=== PATIENT | male | born 1975 | race Caucasian/White ===

== ENCOUNTER 2021-03-22 20:55 | Inpatient (IN) | payer MEDICAID, SELFPAY ==
[2021-03-22 20:57] VITALS: BP 180/113; PULSE 118; RESP 22; TEMP 38.4; O2SAT 94; BMI 27.4
--- NOTE | 2021-03-22 21:11 | CTR_ITS ---
PROCEDURE INFORMATION: Exam: CT Head Without Contrast Exam date and time: 03/22/2021 9:11 PM Age: 45 years old Clinical indication: Altered mental status/memory loss; Additional info: AMS TECHNIQUE: Imaging protocol: Computed tomography of the head without contrast. Radiation optimization: All CT scans at this facility use at least one of these dose optimization techniques: automated exposure control; mA and/or kV adjustment per patient size (includes targeted exams where dose is matched to clinical indication); or iterative reconstruction. COMPARISON: No relevant prior studies available. RADIATION DOSE METRICS: Total DLP (mGy-cm): 698.67 FINDINGS: Brain: There is cortical hypodensity with loss of abdi-white differentiation involving the right frontal operculum extending into the insular cortex worrisome for subacute cortical infarct. There is some focal hypodensity in the right posterior frontal white matter which appears also to be involving the mid body of the corpus callosum consistent with chronic lacunar infarct. There is also encephalomalacia involving the inferior left cerebellar hemisphere most likely chronic cerebellar infarct. There is no intracranial mass or hemorrhage. Cerebral ventricles: Ventricles are within normal limits of size. Paranasal sinuses: Visualized sinuses are unremarkable. No fluid levels. Mastoid air cells: Visualized mastoid air cells are well aerated. Bones/joints: Unremarkable. No acute fracture. Soft tissues: Unremarkable. CT/CT head wo con* [id number] IMPRESSION: 1. Findings worrisome for subacute infarction involving the right frontal and temporal region. 2. 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
--- NOTE | 2021-03-22 21:11 | XRR_ITS ---
PROCEDURE INFORMATION: Exam: XR Chest Exam date and time: 03/22/2021 9:11 PM Age: 45 years old Clinical indication: Fever and other: Weakness; Additional info: AMS, fever TECHNIQUE: Imaging protocol: XR of the chest. Views: 1 view. COMPARISON: No relevant prior studies available. FINDINGS: Lungs: Visualized portions of the lungs are clear. Pleural spaces: Unremarkable. No pleural effusion. No pneumothorax. Heart/Mediastinum: Heart is upper limits normal in size. Vasculature: There are mild atherosclerotic changes in the aortic arch. Bones/joints: Unremarkable. XR/XR chest 1V portable [id number] IMPRESSION: No acute infiltrate. Radiation Dose CTDIVOL = (mGy): DLP = (mGy-cm)
--- NOTE | 2021-03-22 21:18 | ED_ITS ---
Documented by User: GISELLE Martinez 03/23/21 00:46 HPI - Altered Mental Status General: Chief Complaint: Altered Mental Status Stated Complaint: AMS Time Seen by Provider: 03/22/21 21:11 History of Present Illness: HPI narrative: 45-year-old male patient brought in by EMS today for concerns of confusion and altered mental status. Patient states he does not feel good this morning and had chills throughout the day. Patient denies any significant pain or discomfort. Patient does report an occasional cough for the past couple days. Patient looks mildly unwell but not toxic. Skin is warm and dry. Patient is sleeping through interview. Patient does awake to questions but does not relate his history well. Patient denies taking any acetaminophen or ibuprofen for pain or fever. Review of Systems General: Reports: 10 or more systems reviewed and unremarkable except in HPI and below Const: Reports: fever(s), chills and malaise [facility] ED PFSH: Medical History Diabetes mellitus, type II History of stroke with residual deficit (~2019) Treated at [facility] in [facility] per family, residual left sided weakness Hyperlipidemia Hypertension Surgical History (Updated 03/22/21 @ 23:44 by Khadijah Betts MD) History of placement of ear tubes childhood Family History (Updated 03/22/21 @ 23:45 by Khadijah Betts MD) Mother Cancer colon cancer Other Diabetes Hyperlipidemia Hypertension Stroke Social History (Updated 03/22/21 @ 23:46 by Khadijah Betts MD) Smoking and tobacco status: current every day smoker cigarettes Packs smoked per day: 2 Alcohol intake: never Substance/Drug Use: never Household members: other Details: lives with sister and brother in law Current occupational status: unemployed Physical Exam Const: COMMON NORMALS: no acute distress and patient oriented x3 GENERAL APPEARANCE: cooperative HENMT: COMMON NORMALS: normocephalic and Normal external nose present HEAD & SCALP: normal to inspection and normocephalic NOSE: Normal external nose present MOUTH: Normal oral and palatal mucosa present Eye: GENERAL EYE: appearance normal, both eyes and all related structures Neck/C-Spine: COMMON NORMALS: full ROM Lymph: LYMPHATIC: no lymphadenopathy noted Chest: COMMONS NORMALS: normal inspection of the chest Resp: COMMON NORMALS: normal respiratory effort EFFORT & INSPECTION: Yes able to speak in complete sentences Cardio: COMMON NORMALS: regular rate and regular rhythm RATE: regular rate RHYTHM: regular rhythm GI: COMMON NORMALS: Soft to palpation and non-tender PALPATION: Yes Soft to palpation : COMMON NORMALS: Yes no CVA tenderness BLADDER/KIDNEY EXAM: Yes no CVA tenderness Back/Pelvis: COMMON NORMALS: no CVA tenderness and thoracic and lumbar spine normal to inspection Extremity: COMMON NORMALS: normal to inspection Neuro: COMMON NORMALS: patient oriented x3 and moves all extremities Psych: COMMON NORMALS: mental status grossly normal and cooperative Skin: COMMON NORMALS: no rashes or lesions noted GENERAL SKIN EXAM: no rashes or lesions noted Course ED course: 2144, patient sisters are at bedside. Patient has a history of diabetes. Patient has not been taking his medications routinely due to not having a local physician. Patient does have a history of a CVA. Sisters reports he has been ill for the last 2 days. 230, Dr. Marion did a cerebral spinal fluid tap and placed a femoral central line into the left groin. Consultations: Consultation #1: Discussed patient with Dr. Marion who recommended I talk with Dr. De La Rosa regarding abnormal CT scan. She recommended that we go ahead and do a cerebral spinal fluid tap due to patient's fever, she recommended no treatment for the abnormalities noted for the chronic infarct or the subacute infarct noted on CT scan. She stated that those will need to be followed later in clinic or per hospitalist. Time: 22:45 Consultation #2: Consulted with Dr. Betts for admission to hospital. Time: 00:18 Vital Signs: Vital signs: Vital Signs Temperature 101.2 F H 03/22/21 20:57 Pulse Rate 147 H 03/23/21 00:15 Respiratory Rate 14 03/23/21 00:15 Blood Pressure 174/124 03/23/21 00:15 Pulse Oximetry 96 03/23/21 00:15 MDM - Altered Mental Status MDM Narrative: Medical decision making narrative: 45-year-old male patient was brought in by EMS [facility] for complaints of altered mental status. Patient was found in the floor in the bathroom at home by family. He was confused. Family reported that patient has a history of CVA and diabetes. Patient's baseline is usually he is able to get up get around and able to converse normally. Patient has had type 2 diabetes but has not been taking medications for the last 3 months. On exam patient responds to questions. Patient has no unequal weakness no facial drooping. Abdomen soft nontender. Lungs were clear to auscultation. Skin is warm and dry. Patient has a increased pulse rate in the 120s, respirations are in the 20s, and patient has a temperature of 101. Differential diagnosis includes DKA, stroke syndrome, sepsis. Laboratory values noted a blood glucose of 430s, white blood cell count was 13,000, hemoglobin was 19, sodium was 135, potassium was 4.2. Lactic was 2.4. Acetaminophen salicylate drug screen were negative. Alcohol was less than 10. Patient was positive for ketones. ABG noted a pH of 7.39, CO2 was 29.3, PO2 was 76.2 with a bicarb of 17.6. Patient will need admission for correction of blood glucose and ketones and acidosis. Patient also need further evaluation for fever. CT noted a old infarct of the brain but also a subacute finding in the right frontal lobe. Chest x-ray was normal. We consulted Dr. De La Rsoa, neurologist, she recommended spinal tap for cerebrospinal fluid for infectious origin, also recommended follow-up regarding the abnormal CT findings at later date. Dr. Marion was integral in the care of this patient. He recommended discussion with Dr. Betts for admission to ICU. I reviewed patient with Dr. Boucher who agreed to admission for DKA, probable stroke, altered mental status, and fever. Lab Data: Labs: Lab Results 03/22/21 03/22/21 03/22/21 21:00 21:00 21:00 WBC 13.0 10^3/uL H 10 ^3/uL (4.0-10.0) RBC 6.62 10^6/uL H 10 ^6/uL (4.1-5.3) Hgb 19.3 g/dL H g/dL (11.7-16.6) Hct 58.4 % H % (42.0-52.0) MCV 88.2 fl fl (80-94) MCH 29.2 pg pg (28.0-34.0) MCHC 33.0 g/dL g/dL (30.0-36.0) RDW 12.8 % % (12.1-15.1) Plt Count 238 10^3/cmm 10^3 /cmm (130-400) MPV 12.3 fL H fL (7.4-10.4) Neut % (Auto) 92.0 % % Lymph % (Auto) 5.0 % % [place] % (Auto) 1.9 % % Eos % (Auto) 0.1 % % Baso % (Auto) 0.4 % % Neut # (Auto) 11.94 10^3/uL H 1 0^3/uL (1.8-7.7) Lymph # (Auto) 0.7 10^3/uL L 10^ 3/uL (0.8-4.8) [place] # (Auto) 0.3 10^3/uL 10^3/ uL (0.2-0.9) Eos # (Auto) 0.0 10^3/uL 10^3/ uL (0.0-0.8) Baso # (Auto) 0.1 10^3/uL 10^3/ uL (0.0-0.1) Nucleated RBC % (a uto) 0 % % Nucleated RBCs # 0.0 /100WBC /100W BC Specimen Type Sample Site ABG pH ABG pCO2 ABG pO2 ABG HCO3 ABG Base Excess Jamal Test Hematocrit O2 Delivery Device O2 Liters/Min Missile Control Pilot ID Sodium 135 mmol/L L mmol /L (136-145) Potassium 4.2 mmol/L mmol/L (3.5-5.1) Chloride 95 mmol/L L mmol/ L (98-107) Carbon Dioxide 17 mmol/L L mmol/ L (22-29) Anion Gap 27.2 H (5-19) BUN 8 mg/dL mg/dL (6-20) Creatinine 0.6 mg/dL L mg/dL (0.7-1.2) GFR Calculation 144.4 mL/min H mL /min (90-130) Glucose 431 mg/dL H mg/dL (65-115) POC Glucose Calculated Osmolal ity 297 mOsm/kg H mOs m/kg (285-295) Lactic Acid 2.4 mmol/L H mmol /L (0.5-2.2) Calcium 9.5 mg/dL mg/dL (8.5-10.5) Total Bilirubin 0.6 mg/dL mg/dL (0.15-1.2) AST 15 U/L U/L (0-40) ALT 25 U/L U/L (0-41) Alkaline Phosphata se 137 IU/L H IU/L (40-130) Troponin T Gen 5 n g/L C-Reactive Protein 11.0 mg/L H mg/L (0.0-4.9) Total Protein 6.8 g/dL g/dL (6.6-8.7) Albumin 4.2 g/dL g/dL (3.5-5.2) Globulin 2.6 g/dL g/dL (1.3-4.6) Urine Color Urine Appearance Urine pH Ur Specific Gravit y Urine Protein Urine Glucose (UA) Urine Ketones Urine Blood Urine Nitrate Urine Bilirubin Urine Urobilinogen Ur Leukocyte Neris ase Urine RBC Urine WBC Ur Squamous Epith Cells Amorphous Sediment Urine Bacteria Fine Granular Cast s Salicylates Urine Opiates Scre en Acetaminophen Ur Barbiturates Sc reen Ur Phencyclidine S crn Ur Amphetamines Sc reen U Benzodiazepines Scrn Urine Cocaine Scre en U Marijuana (THC) Screen Ethyl Alcohol < 10 mg/dL mg/dL (0-10) Serum Ketones Influenza Type A A g Influenza Type B A g SARS-CoV-2 Ag (Rap id) 03/22/21 03/22/21 03/22/21 21:00 21:00 21:00 WBC RBC Hgb Hct MCV MCH MCHC RDW Plt Count MPV Neut % (Auto) Lymph % (Auto) [place] % (Auto) Eos % (Auto) Baso % (Auto) Neut # (Auto) Lymph # (Auto) [place] # (Auto) Eos # (Auto) Baso # (Auto) Nucleated RBC % (a uto) Nucleated RBCs # Specimen Type Sample Site ABG pH ABG pCO2 ABG pO2 ABG HCO3 ABG Base Excess Jamal Test Hematocrit O2 Delivery Device O2 Liters/Min Missile Control Pilot ID Sodium Potassium Chloride Carbon Dioxide Anion Gap BUN Creatinine GFR Calculation Glucose POC Glucose Calculated Osmolal ity Lactic Acid Calcium Total Bilirubin AST ALT Alkaline Phosphata se Troponin T Gen 5 n g/L 17 ng/L H ng/L (0-15) C-Reactive Protein Total Protein Albumin Globulin Urine Color Urine Appearance Urine pH Ur Specific Gravit y Urine Protein Urine Glucose (UA) Urine Ketones Urine Blood Urine Nitrate Urine Bilirubin Urine Urobilinogen Ur Leukocyte Neris ase Urine RBC Urine WBC Ur Squamous Epith Cells Amorphous Sediment Urine Bacteria Fine Granular Cast s Salicylates < 0.3 mg/dL L mg/ dL (3-10) Urine Opiates Scre en Acetaminophen < 5.0 ug/mL L ug/ mL (10-30) Ur Barbiturates Sc reen Ur Phencyclidine S crn Ur Amphetamines Sc reen U Benzodiazepines Scrn Urine Cocaine Scre en U Marijuana (THC) Screen Ethyl Alcohol Serum Ketones Positive H (Negative) Influenza Type A A g Influenza Type B A g SARS-CoV-2 Ag (Rap id) 03/22/21 03/22/21 03/22/21 21:50 21:50 21:57 WBC RBC Hgb Hct MCV MCH MCHC RDW Plt Count MPV Neut % (Auto) Lymph % (Auto) [place] % (Auto) Eos % (Auto) Baso % (Auto) Neut # (Auto) Lymph # (Auto) [place] # (Auto) Eos # (Auto) Baso # (Auto) Nucleated RBC % (a uto) Nucleated RBCs # Specimen Type Sample Site ABG pH ABG pCO2 ABG pO2 ABG HCO3 ABG Base Excess Jamal Test Hematocrit O2 Delivery Device O2 Liters/Min Missile Control Pilot ID Sodium Potassium Chloride Carbon Dioxide Anion Gap BUN Creatinine GFR Calculation Glucose POC Glucose Calculated Osmolal ity Lactic Acid Calcium Total Bilirubin AST ALT Alkaline Phosphata se Troponin T Gen 5 n g/L C-Reactive Protein Total Protein Albumin Globulin Urine Color Yellow (Yellow) Urine Appearance Clear (CLEAR) Urine pH 5 (5-7) Ur Specific Gravit y 1.020 (1.005-1.030) Urine Protein 3+ H (Negative) Urine Glucose (UA) 4+ H (Normal) Urine Ketones 3+ H (Negative) Urine Blood 2+ H (Negative) Urine Nitrate Negative (Negative) Urine Bilirubin Neg (Negative) Urine Urobilinogen Norm mg/dL mg/dL (Negative) Ur Leukocyte Neris ase Negative (Negative) Urine RBC Rare /hpf /hpf (0-2) Urine WBC Rare /hpf /hpf (0-5) Ur Squamous Epith Cells None /hpf /hpf (0-5) Amorphous Sediment Not Reportable Urine Bacteria None /hpf /hpf (NONE) Fine Granular Cast s 0-4 /lpf H /lpf Salicylates Urine Opiates Scre en Negative ng/mL ng /mL (Negative) Acetaminophen Ur Barbiturates Sc reen Negative ng/mL ng /mL (Negative) Ur Phencyclidine S crn Negative ng/mL ng /mL (Negative) Ur Amphetamines Sc reen Negative ng/mL ng /mL (Negative) U Benzodiazepines Scrn Negative ng/mL ng /mL (Negative) Urine Cocaine Scre en Negative ng/mL ng /mL (Negative) U Marijuana (THC) Screen Negative ng/mL ng /mL (Negative) Ethyl Alcohol Serum Ketones Influenza Type A A g Influenza Type B A g SARS-CoV-2 Ag (Rap id) Negative (Negative) 03/22/21 03/22/21 03/23/21 21:57 22:25 00:17 WBC RBC Hgb Hct MCV MCH MCHC RDW Plt Count MPV Neut % (Auto) Lymph % (Auto) [place] % (Auto) Eos % (Auto) Baso % (Auto) Neut # (Auto) Lymph # (Auto) [place] # (Auto) Eos # (Auto) Baso # (Auto) Nucleated RBC % (a uto) Nucleated RBCs # Specimen Type Arterial Sample Site Brachial, right ABG pH 7.39 (7.35-7.45) ABG pCO2 29.3 mmHg L mmHg (35-45) ABG pO2 76.2 mmHg L mmHg (80.0-100.0) ABG HCO3 17.6 mmol/L L mmo l/L (22-26) ABG Base Excess -5.6 mmol/L L mmo l/L (-2.0-2.0) Jamal Test N/a Hematocrit 58.7 % H % (42-52) O2 Delivery Device Nc O2 Liters/Min 2.0 % % Missile Control Pilot ID Harkr Sodium Potassium Chloride Carbon Dioxide Anion Gap BUN Creatinine GFR Calculation Glucose POC Glucose 421 mg/dL H mg/dL (70-110) Calculated Osmolal ity Lactic Acid Calcium Total Bilirubin AST ALT Alkaline Phosphata se Troponin T Gen 5 n g/L C-Reactive Protein Total Protein Albumin Globulin Urine Color Urine Appearance Urine pH Ur Specific Gravit y Urine Protein Urine Glucose (UA) Urine Ketones Urine Blood Urine Nitrate Urine Bilirubin Urine Urobilinogen Ur Leukocyte Neris ase Urine RBC Urine WBC Ur Squamous Epith Cells Amorphous Sediment Urine Bacteria Fine Granular Cast s Salicylates Urine Opiates Scre en Acetaminophen Ur Barbiturates Sc reen Ur Phencyclidine S crn Ur Amphetamines Sc reen U Benzodiazepines Scrn Urine Cocaine Scre en U Marijuana (THC) Screen Ethyl Alcohol Serum Ketones Influenza Type A A g Negative (Negative) Influenza Type B A g Negative (Negative) SARS-CoV-2 Ag (Rap id) EKG Data^: EKG 1: Attestation: I personally reviewed and interpreted this EKG as follows: (2200, EKG shows a sinus tachycardia with a regular rate and now had 119 bpm, no ST elevation no ectopy noted.) Discharge Plan Discharge Patient Disposition: Admitted As Inpatient Clinical Impression: Altered mental status, DKA (diabetic ketoacidosis), Fever, Cerebral vascular accident Condition: Stable Coding Level of Care Code ED Biological Scientist for Chg Fwd Exam Comprehensive Documented by User: Akin Marion MD 03/22/21 23:50 HPI - Altered Mental Status General: Chief Complaint: Altered Mental Status Stated Complaint: AMS Time Seen by Provider: 03/22/21 21:11 [facility] ED PFSH: Medical History Diabetes mellitus, type II History of stroke with residual deficit (~2018) Treated at [facility] in [facility] per family, residual left sided weakness Hyperlipidemia Hypertension Surgical History (Updated 03/22/21 @ 23:44 by Khadijah Betts MD) History of placement of ear tubes childhood Family History (Updated 03/22/21 @ 23:45 by Khadijah Betts MD) Mother Cancer colon cancer Other Diabetes Hyperlipidemia Hypertension Stroke Social History (Updated 03/22/21 @ 23:46 by Khadijah Betts MD) Smoking and tobacco status: current every day smoker cigarettes Packs smoked per day: 2 Alcohol intake: never Substance/Drug Use: never Household members: other Details: lives with sister and brother in law Current occupational status: unemployed Procedures Central Line Placement Left Femoral: Time Out Performed: Yes Patient Placed on Monitor/Pulse Ox: Yes Prep: mask, gown and gloves Central Line Prep: Povidone-Iodine 1% and Chlorhexidine scrub Local Anesthetic: lidocaine 1% Amount of anesthesia used (mL): 4 Ultrasound Used for Placement: Yes Central Line Lumen Inserted: triple Post Procedure: sutured in place, good blood return, all ports aspirated, flushed, capped and sterile dressing applied Post Procedure X-Ray: tip of catheter in good position Patient Tolerated Procedure: well and no complications Complications: none Lumbar Puncture Time Out Performed: Yes Patient Position: right lateral decubitus Skin Prep: Povidone-Iodine 1% Local Anesthetic: lidocaine 1% Amount of anesthesia used (mL): 5 Spinal Needle Gauge: 22G Interspace Used: L4-L5 Fluid Initially Obtained: clear Complications: none Additional Comments: 3 attempts and were able to obtain LP sample Course Vital Signs: Vital signs: Vital Signs Temperature 101.2 F H 03/22/21 20:57 Pulse Rate 147 H 03/23/21 00:15 Respiratory Rate 14 03/23/21 00:15 Blood Pressure 174/124 03/23/21 00:15 Pulse Oximetry 96 03/23/21 00:15 MDM - Altered Mental Status Lab Data: Labs: Lab Results 03/22/21 03/22/21 03/22/21 21:00 21:00 21:00 WBC 13.0 10^3/uL H 10 ^3/uL (4.0-10.0) RBC 6.62 10^6/uL H 10 ^6/uL (4.1-5.3) Hgb 19.3 g/dL H g/dL (11.7-16.6) Hct 58.4 % H % (42.0-52.0) MCV 88.2 fl fl (80-94) MCH 29.2 pg pg (28.0-34.0) MCHC 33.0 g/dL g/dL (30.0-36.0) RDW 12.8 % % (12.1-15.1) Plt Count 238 10^3/cmm 10^3 /cmm (130-400) MPV 12.3 fL H fL (7.4-10.4) Neut % (Auto) 92.0 % % Lymph % (Auto) 5.0 % % [place] % (Auto) 1.9 % % Eos % (Auto) 0.1 % % Baso % (Auto) 0.4 % % Neut # (Auto) 11.94 10^3/uL H 1 0^3/uL (1.8-7.7) Lymph # (Auto) 0.7 10^3/uL L 10^ 3/uL (0.8-4.8) [place] # (Auto) 0.3 10^3/uL 10^3/ uL (0.2-0.9) Eos # (Auto) 0.0 10^3/uL 10^3/ uL (0.0-0.8) Baso # (Auto) 0.1 10^3/uL 10^3/ uL (0.0-0.1) Nucleated RBC % (a uto) 0 % % Nucleated RBCs # 0.0 /100WBC /100W BC Specimen Type Sample Site ABG pH ABG pCO2 ABG pO2 ABG HCO3 ABG Base Excess Jamal Test Hematocrit O2 Delivery Device O2 Liters/Min Missile Control Pilot ID Sodium 135 mmol/L L mmol /L (136-145) Potassium 4.2 mmol/L mmol/L (3.5-5.1) Chloride 95 mmol/L L mmol/ L (98-107) Carbon Dioxide 17 mmol/L L mmol/ L (22-29) Anion Gap 27.2 H (5-19) BUN 8 mg/dL mg/dL (6-20) Creatinine 0.6 mg/dL L mg/dL (0.7-1.2) GFR Calculation 144.4 mL/min H mL /min (90-130) Glucose 431 mg/dL H mg/dL (65-115) POC Glucose Calculated Osmolal ity 297 mOsm/kg H mOs m/kg (285-295) Lactic Acid 2.4 mmol/L H mmol /L (0.5-2.2) Calcium 9.5 mg/dL mg/dL (8.5-10.5) Total Bilirubin 0.6 mg/dL mg/dL (0.15-1.2) AST 15 U/L U/L (0-40) ALT 25 U/L U/L (0-41) Alkaline Phosphata se 137 IU/L H IU/L (40-130) Troponin T Gen 5 n g/L C-Reactive Protein 11.0 mg/L H mg/L (0.0-4.9) Total Protein 6.8 g/dL g/dL (6.6-8.7) Albumin 4.2 g/dL g/dL (3.5-5.2) Globulin 2.6 g/dL g/dL (1.3-4.6) Urine Color Urine Appearance Urine pH Ur Specific Gravit y Urine Protein Urine Glucose (UA) Urine Ketones Urine Blood Urine Nitrate Urine Bilirubin Urine Urobilinogen Ur Leukocyte Neris ase Urine RBC Urine WBC Ur Squamous Epith Cells Amorphous Sediment Urine Bacteria Fine Granular Cast s Salicylates Urine Opiates Scre en Acetaminophen Ur Barbiturates Sc reen Ur Phencyclidine S crn Ur Amphetamines Sc reen U Benzodiazepines Scrn Urine Cocaine Scre en U Marijuana (THC) Screen Ethyl Alcohol < 10 mg/dL mg/dL (0-10) Serum Ketones Influenza Type A A g Influenza Type B A g SARS-CoV-2 Ag (Rap id) 03/22/21 03/22/21 03/22/21 21:00 21:00 21:00 WBC RBC Hgb Hct MCV MCH MCHC RDW Plt Count MPV Neut % (Auto) Lymph % (Auto) [place] % (Auto) Eos % (Auto) Baso % (Auto) Neut # (Auto) Lymph # (Auto) [place] # (Auto) Eos # (Auto) Baso # (Auto) Nucleated RBC % (a uto) Nucleated RBCs # Specimen Type Sample Site ABG pH ABG pCO2 ABG pO2 ABG HCO3 ABG Base Excess Jamal Test Hematocrit O2 Delivery Device O2 Liters/Min Missile Control Pilot ID Sodium Potassium Chloride Carbon Dioxide Anion Gap BUN Creatinine GFR Calculation Glucose POC Glucose Calculated Osmolal ity Lactic Acid Calcium Total Bilirubin AST ALT Alkaline Phosphata se Troponin T Gen 5 n g/L 17 ng/L H ng/L (0-15) C-Reactive Protein Total Protein Albumin Globulin Urine Color Urine Appearance Urine pH Ur Specific Gravit y Urine Protein Urine Glucose (UA) Urine Ketones Urine Blood Urine Nitrate Urine Bilirubin Urine Urobilinogen Ur Leukocyte Neris ase Urine RBC Urine WBC Ur Squamous Epith Cells Amorphous Sediment Urine Bacteria Fine Granular Cast s Salicylates < 0.3 mg/dL L mg/ dL (3-10) Urine Opiates Scre en Acetaminophen < 5.0 ug/mL L ug/ mL (10-30) Ur Barbiturates Sc reen Ur Phencyclidine S crn Ur Amphetamines Sc reen U Benzodiazepines Scrn Urine Cocaine Scre en U Marijuana (THC) Screen Ethyl Alcohol Serum Ketones Positive H (Negative) Influenza Type A A g Influenza Type B A g SARS-CoV-2 Ag (Rap id) 03/22/21 03/22/21 03/22/21 21:50 21:50 21:57 WBC RBC Hgb Hct MCV MCH MCHC RDW Plt Count MPV Neut % (Auto) Lymph % (Auto) [place] % (Auto) Eos % (Auto) Baso % (Auto) Neut # (Auto) Lymph # (Auto) [place] # (Auto) Eos # (Auto) Baso # (Auto) Nucleated RBC % (a uto) Nucleated RBCs # Specimen Type Sample Site ABG pH ABG pCO2 ABG pO2 ABG HCO3 ABG Base Excess Jamal Test Hematocrit O2 Delivery Device O2 Liters/Min Missile Control Pilot ID Sodium Potassium Chloride Carbon Dioxide Anion Gap BUN Creatinine GFR Calculation Glucose POC Glucose Calculated Osmolal ity Lactic Acid Calcium Total Bilirubin AST ALT Alkaline Phosphata se Troponin T Gen 5 n g/L C-Reactive Protein Total Protein Albumin Globulin Urine Color Yellow (Yellow) Urine Appearance Clear (CLEAR) Urine pH 5 (5-7) Ur Specific Gravit y 1.020 (1.005-1.030) Urine Protein 3+ H (Negative) Urine Glucose (UA) 4+ H (Normal) Urine Ketones 3+ H (Negative) Urine Blood 2+ H (Negative) Urine Nitrate Negative (Negative) Urine Bilirubin Neg (Negative) Urine Urobilinogen Norm mg/dL mg/dL (Negative) Ur Leukocyte Neris ase Negative (Negative) Urine RBC Rare /hpf /hpf (0-2) Urine WBC Rare /hpf /hpf (0-5) Ur Squamous Epith Cells None /hpf /hpf (0-5) Amorphous Sediment Not Reportable Urine Bacteria None /hpf /hpf (NONE) Fine Granular Cast s 0-4 /lpf H /lpf Salicylates Urine Opiates Scre en Negative ng/mL ng /mL (Negative) Acetaminophen Ur Barbiturates Sc reen Negative ng/mL ng /mL (Negative) Ur Phencyclidine S crn Negative ng/mL ng /mL (Negative) Ur Amphetamines Sc reen Negative ng/mL ng /mL (Negative) U Benzodiazepines Scrn Negative ng/mL ng /mL (Negative) Urine Cocaine Scre en Negative ng/mL ng /mL (Negative) U Marijuana (THC) Screen Negative ng/mL ng /mL (Negative) Ethyl Alcohol Serum Ketones Influenza Type A A g Influenza Type B A g SARS-CoV-2 Ag (Rap id) Negative (Negative) 03/22/21 03/22/21 03/23/21 21:57 22:25 00:17 WBC RBC Hgb Hct MCV MCH MCHC RDW Plt Count MPV Neut % (Auto) Lymph % (Auto) [place] % (Auto) Eos % (Auto) Baso % (Auto) Neut # (Auto) Lymph # (Auto) [place] # (Auto) Eos # (Auto) Baso # (Auto) Nucleated RBC % (a uto) Nucleated RBCs # Specimen Type Arterial Sample Site Brachial, right ABG pH 7.39 (7.35-7.45) ABG pCO2 29.3 mmHg L mmHg (35-45) ABG pO2 76.2 mmHg L mmHg (80.0-100.0) ABG HCO3 17.6 mmol/L L mmo l/L (22-26) ABG Base Excess -5.6 mmol/L L mmo l/L (-2.0-2.0) Jamal Test N/a Hematocrit 58.7 % H % (42-52) O2 Delivery Device Nc O2 Liters/Min 2.0 % % Missile Control Pilot ID Harkr Sodium Potassium Chloride Carbon Dioxide Anion Gap BUN Creatinine GFR Calculation Glucose POC Glucose 421 mg/dL H mg/dL (70-110) Calculated Osmolal ity Lactic Acid Calcium Total Bilirubin AST ALT Alkaline Phosphata se Troponin T Gen 5 n g/L C-Reactive Protein Total Protein Albumin Globulin Urine Color Urine Appearance Urine pH Ur Specific Gravit y Urine Protein Urine Glucose (UA) Urine Ketones Urine Blood Urine Nitrate Urine Bilirubin Urine Urobilinogen Ur Leukocyte Neris ase Urine RBC Urine WBC Ur Squamous Epith Cells Amorphous Sediment Urine Bacteria Fine Granular Cast s Salicylates Urine Opiates Scre en Acetaminophen Ur Barbiturates Sc reen Ur Phencyclidine S crn Ur Amphetamines Sc reen U Benzodiazepines Scrn Urine Cocaine Scre en U Marijuana (THC) Screen Ethyl Alcohol Serum Ketones Influenza Type A A g Negative (Negative) Influenza Type B A g Negative (Negative) SARS-CoV-2 Ag (Rap id) Critical Care Time Critical Care Time: Critical Care Time: Yes Total Critical Care Time: 45 Attestation: Given the high probability of imminent or life threatening deterioration of the patient?s condition without intervention, the patient was immediately assessed by myself and the nurse, and cardiac monitoring initiated. The patient was also placed on oxygen and continuous pulse oximetry initiated. During the course of the patient?s stay, I spent a considerable amount of time at the bedside performing serial re-evaluations of the patient?s hemodynamic and clinical status because of the recognized potential threat to life or limb in this condition. Clinical management of this patient involved high complexity decision making to assess, manipulate, and support vital organ system failure. I then had a chance to review all of the available laboratory and radiographic studies obtained today, and I also reviewed old records available to me at the time. Sequential vital signs were obtained. Critical care time noted below was time spent engaged in work directly related to the individual patient?s care, not including time performing procedures; however it does include time spent at the immediate bedside or elsewhere on the floor or unit. TOTAL CRITICAL CARE TIME ELAPSED: 45 minutes. BODY SYSTEM AT HIGHEST RISK: Neurological and Hematological Discharge Plan Discharge Patient Disposition: Admitted As Inpatient Clinical Impression: Altered mental status, DKA (diabetic ketoacidosis), Fever, Cerebral vascular accident Condition: Stable Coding Level of Care Code ED Biological Scientist for Olga Fwandie Exam Comprehensive
--- NOTE | 2021-03-22 21:25 | ECG_ITS ---
[facility] Test Date: 2021-03-22 Pat Name: Dimitrios Guerrero Department: Room: Gender: Male [employer]: : 1975 Requested By: Hernesto Catherine Order Number: [id number] Jia MD: Demetrius Durán M.D. Measurements Intervals [place] Rate: 119 P: 66 OR: 176 QRS: 97 QRSD: 110 T: 54 QT: 327 QTc: 461 Interpretive Statements SINUS TACHYCARDIA BORDERLINE RIGHT AXIS DEVIATION [QRS AXIS > 90] SEPTAL MYOCARDIAL INFARCTION , OF INDETERMINATE AGE [40+ ms Q WAVE IN V1/V2] No previous ECG available for comparison Electronically Signed On 03-23-2021 1:25:51 CDT by Demetrius Durán M.D. [id number]
[2021-03-22 21:42] LABS: Basophils # 0.1 10^3/uL (0.0-0.1); Basophils % 0.4 %; Eosinophils % 0.1 %; Hematocrit 58.4 % (42.0-52.0); Hemoglobin 19.3 g/dL (11.7-16.6); Lymphocytes # 0.7 10^3/uL (0.8-4.8); Mean Corpuscular Hemoglobin 29.2 pg (28.0-34.0); Mean Corpuscular Volume 88.2 fl (80-94); Mean Platelet Volume 12.3 fL (7.4-10.4); Monocytes # 0.3 10^3/uL (0.2-0.9); Monocytes % 1.9 %; Neutrophils # 11.94 10^3/uL (1.8-7.7); Nucleated Red Blood Cells % 0 %; Platelet Count 238 10^3/cmm (130-400); Red Blood Count 6.62 10^6/uL (4.1-5.3); Red Cell Distribution Width 12.8 % (12.1-15.1)
[2021-03-22 21:56] LABS: Lactic Sepsis W/Reflex 2.4 mmol/L (0.5-2.2); Troponin T (5th) Once 17 ng/L (0-15)
[2021-03-22 21:57] LABS: Alanine Aminotransferase 25 U/L (0-41); Albumin Level 4.2 g/dL (3.5-5.2); Alkaline Phosphatase 137 IU/L (40-130); Aspartate Amino Transferase 15 U/L (0-40); Blood Urea Nitrogen 8 mg/dL (6-20); Calcium 9.5 mg/dL (8.5-10.5); Carbon Dioxide 17 mmol/L (22-29); Chloride 95 mmol/L (98-107); Globulin 2.6 g/dL (1.3-4.6); Glomerular Filtration Rate 144.4 mL/min (90-130); Glucose 431 mg/dL (65-115); Osmolality Calculated 297 mOsm/kg (285-295); Sodium 135 mmol/L (136-145); Total Bilirubin 0.6 mg/dL (0.15-1.2); Total Protein 6.8 g/dL (6.6-8.7)
[2021-03-22] MEDS: sodium chloride 0.9% 1,000 ML 999 ML IV (21:58)
[2021-03-22] MEDS: acetaminophen 500 mg Tablet 1000 MG PO (21:58)
[2021-03-22 21:59] LABS: Alcohol Level < 10 mg/dL (0-10); Anion Gap 27.2 (5-19); Potassium 4.2 mmol/L (3.5-5.1)
[2021-03-22 22:10] LABS: Ketone (Acetest) Serum Positive (Negative)
[2021-03-22 22:12] VITALS: BP 191/113; PULSE 121; RESP 28; O2SAT 94
[2021-03-22 22:17] LABS: Amphetamines Screen Urine Negative (Negative); Barbiturates Screen Urine Negative (Negative); Benzodiazepines Screen Urine Negative (Negative); Blood Urine 2+ (Negative); Cocaine Screen Urine Negative (Negative); Glucose Urine UA 4+ (Normal); Ketones Urine 3+ (Negative); Opiate Screen Urine Negative (Negative); PCP Screen Urine Negative (Negative); Protein Urine 3+ (Negative); THC Screen Urine Negative (Negative); Urine Appearance Clear (CLEAR); Urine Color Yellow (Yellow); pH Urine 5 (5-7)
[2021-03-22 22:18] LABS: Add Urine Microscopic? YES; Bilirubin Urine Neg (Negative); Leukocyte Esterase Urine Negative (Negative); Nitrate Urine Negative (Negative); RBC Urine RARE /hpf (0-2); Urobilinogen Urine Norm (Negative)
[2021-03-22 22:19] LABS: Fine Granular Casts Urine 0-4 /lpf; WBC Urine RARE /hpf (0-5)
[2021-03-22 22:30] VITALS: BP 181/109; PULSE 120; RESP 25; O2SAT 95
[2021-03-22] MEDS: insulin regular-human 100 units/1 mL 10 UNIT IVP (22:34)
[2021-03-22 22:36] LABS: ABG PCO2 29.3 mmHg (35-45); ABG PH Result 7.39 (7.35-7.45); Arterial Blood Gas Hematocrit 58.7 % (42-52); Base Excess ABG -5.6 mmol/L (-2.0-2.0); Blood Gas Operator Identificat HARKR; Blood Gas Sample Site Brachial, right; Blood Gas Sample Type Arterial; HCO3 ABG 17.6 mmol/L (22-26); Oxygen Device NC; PO2 ABG 76.2 mmHg (80.0-100.0)
[2021-03-22 22:45] LABS: Influenza A by IFA Negative (Negative); Influenza B by IFA Negative (Negative); SARS Covid-2 Antigen Negative (Negative)
--- NOTE | 2021-03-22 23:21 | P.HP_ITS ---
Providers/Chief Complaint Admitting Physician: Khadijah Betts MD Primary Care Provider: None Chief Complaint: AMS History of Present Illness Dimitrios Guerrero is a 45 year old male Who presented to the emergency room with chief complaint of change in mental status. Family indicates that he has been his usual self until today. He had gotten up to go to the bathroom. Prior to this he was talking and had no specific complaints. He had been in the bathroom for quite some time and then his [id number] heard a thump . They went to the bathroom and found him on the floor. He was not completely unresponsive but was not as communicative as he had been. He had a red spot on his left side but otherwise they did not see any evidence of trauma including no evidence of head injury. No loss of bowel or bladder function identified. They were unable to get him up off the floor and called EMS. On specific questioning, his sister with whom he lives reports that yesterday he complained of his good leg not working and some difficulty walking because of this. He has a history of a prior stroke approximately 2 years ago associated with residual left-sided weakness. He was treated at either [facility] in [facility] for the stroke. He has a known history of diabetes, hypertension and high cholesterol but does not have any insurance and has not been on any medications due to inability to afford them. Hesitation to the emergency room, patient's bl ood pressure was 180/113, temperature was 101.2, pulse was 118 and respiratory rate in the low 20s. Family does not report any known fever at home, upper respiratory symptoms cough, nausea, vomiting, diarrhea, urinary symptoms, open sores or other acute issues within the past 24 to 48 hours. None of them are sick. He has not had Covid and did not receive the Covid vaccination. Work-up in the emergency room revealed evidence of hyperglycemia with anion gap and serum ketosis consistent with DKA. Also noted were changes on CT of the head without contrast worrisome for subacute cortical infarction in the right frontal operculum extending to the insular cortex. Chronic left cerebellar infarctions also identified. There was no mass or hemorrhage nor ventricular enlargement. White count 13,000. Lumbar puncture was performed in the emergency room. Blood cultures were collected. He has received vancomycin, Rocephin and acyclovir. Urinalysis was negative. Central venous line was placed for care. He is being admitted to the ICU. According to ER staff, patient was conversive when he arrived. Currently will open eyes and lift his head to stimulation but not engaging. Review of Systems General: Reports: ROS unobtainable due to medical condition and ROS unobtainable due to mental status Medications/Allergies Home Medications Medication Instructions Recorded Confirmed Last Taken Type No Known Home Medications 03/22/21 03/22/21 Unknown History Allergies Allergy/AdvReac Type Severity Reaction Status Date / Time No Known Allergies Allergy Verified 03/22/21 20:57 PFSH Acute PFSH: Medical History Diabetes mellitus, type II History of stroke with residual deficit (~2018) Treated at [facility] per family, residual left sided weakness Hyperlipidemia Hypertension Surgical History (Updated 03/22/21 @ 23:44 by Khadijah Betts MD) History of placement of ear tubes childhood Family History (Updated 03/22/21 @ 23:45 by Khadijah Betts MD) Mother Cancer colon cancer Other Diabetes Hyperlipidemia Hypertension Stroke Social History (Updated 03/22/21 @ 23:46 by Khadijah Betts MD) Smoking and tobacco status: current every day smoker cigarettes Packs smoked per day: 2 Alcohol intake: never Substance/Drug Use: never Household members: other Details: lives with sister and brother in law Current occupational status: unemployed Vitals/I&O/Wt Last Vital Signs Temp 101.2 F H 03/22/21 20:57 Pulse 120 H 03/22/21 22:30 Resp 25 H 03/22/21 22:30 BP 181/109 03/22/21 22:30 Pulse Ox 95 03/22/21 22:30 Weight last 48 hrs Weight 74.843 kg Physical Exam Narrative: EXAM NARRATIVE: Constitutional: Acutely ill-appearing HEENT: Pupils are equally reactive and same size bilaterally, nystagmus is noted, nasopharynx with dried mucus, oropharynx with very dry mucous membranes Neck: Supple Respiratory: Shallow respirations, tachypneic, no wheezes or rails, no rhonchi, abdominal breathing, no supraclavicular intercostal retractions, is mouth breathing Cardiovascular: Tachycardic, regular, no notable murmurs Abdomen: Soft, nontender, nondistended, positive but decreased bowel sounds : Normal external genitalia, Bang catheter is in place, central line in place in the left groin with some periplacement hematoma noted though no external bleeding. During my evaluation, dressing was removed and gauze that was sutured in place was removed. This necessitated resuturing. Sterile gloves were utilized. Area was cleaned with chlorhexidine. New suture was placed. Sterile dressing was placed. Extremities: No pitting edema, no significant warmth, erythema or effusion noted at elbows, wrists, knees, ankles Skin: Dry, some minor bruising at sites of blood draws/line placements, scattered minor sores on distal extremities, no rashes or petechiae Neuro: Not fully cooperative with examination. Restless. Has flapping movements of his right hand at times. Left toe is downgoing, right toe is upgoing. Strength may be slightly decreased in the right lower extremity compared to the left lower extremity although difficult to fully ascertain as he does not follow commands. He does withdraw all extremities during attempts at manipulation/examination. Generalized myoclonic-like movements elicitable with ankle jerks bilaterally. Muscle mass appears equal bilaterally, face appears grossly symmetric, extraocular movements are grossly intact, positive gag. Psych: Not currently responsive Data : 03/22/21 21:00 03/22/21 21:00 Micro: Microbiology 03/22/21 22:00 Blood Culture - Preliminary Blood SPECIMEN COLLECTED 03/22/21 21:00 Blood Culture - Preliminary Blood SPECIMEN COLLECTED A&P Assessment and plan (1) Encephalopathy acute: Multifactorial from probable acute/subacute stroke, possibility of syncope or seizure, diabetic ketoacidosis, potential viral or bacterial infection. Exacerbated by medications administered to allow appropriate evaluation in the ER. In addition to alteration in mental status, he has fever, mild leukocytosis, hypertension and what family describes as sudden change this evening around 7:30 PM. This was preceded by complaint of increased difficulty walking yesterday involving his good leg . My impression clinically this point in time is that he has had a recurrent stroke within the past 24 to 48 hours that probably put him into DKA on top of chronically uncontrolled blood sugars. He is a known smoker and has hypertension and hyperlipidemia which also have not been treated. History of noncompliance related to financial difficulty affording medical care and medications, lack of insurance. While acute infection is certainly within the differential, the fever and white blood count could be reactive related to stroke. He has had appropriate blood cultures, lumbar puncture with multiple studies sent, urinalysis and chest x-ray. He has a mildly elevated lactic acid level and elevation in CRP. Clinical significance of these findings not currently clear. Metabolic and vascular abnormalities could also account for these changes. Does not currently appear to be septic though it is certainly something to watch out for Status: Acute (2) Cerebral vascular accident: With sudden onset of clinical change this evening combined with report from yesterday difficulty walking, along with abnormalities identified on CT imaging primary my differential is an acute stroke. Area of involvement however in the frontal temporal region do have to keep in mind herpetic or other viral process. Status: Acute (3) DKA (diabetic ketoacidosis): In a patient with a history of untreated diabetes, presumptively type II, no clear history of DKA previously Has associated significant dehydration, anion gap metabolic acidosis, hyperglycemia, serum ketosis Status: Acute Qualifiers: Diabetes mellitus type: type 2 Diabetes mellitus complication detail: without coma Qualified Code(s): E11.10 - Type 2 diabetes mellitus with ketoaci dosis without coma (4) Hypertension: Chronically, has been untreated due to financial difficulty affording medications and medical care, currently permissive in the setting of potential stroke Status: Chronic (5) Hyperlipidemia: Not on chronic treatment secondary to financial difficulty affording medications and medical care Status: Chronic (6) Nicotine dependence: 2 pack-a-day smoker Status: Chronic (7) Does not have health insurance: And financially has been unable to afford medical care and/or medications Status: Chronic Additional A&P Information Inpatient admission ICU level care DKA management with insulin, IV fluids, serial laboratory studies and electrolyte replacement as indicated Will need outpatient diabetes management initiated at discharge Serial cardiac enzymes Serial neuro exams Carotid ultrasound and echocardiogram CTA of the head neck Aspirin and statin are ordered Will need antiplatelet and statin ordered at discharge Check INR, hemoglobin A1c, lipid panel Permissive hypertension presently Anticipate need to initiate antihypertensives upon discharge PT, OT and speech evaluations Follow-up pending blood cultures Follow-up pending CSF studies ordered from the emergency room CSF gram stain/cell count CSF culture HSV CSH CSF Cryptococcal antigen [place] Encephalitis Virus IFA CSF VDRL CSF West Nile Follow up bacterial and viral antigens Will presently continue acyclovir, vancomycin and Rocephin initiated in the emergency room until we get a bit more information Repeat lactic acid Covid PCR has been ordered, rapid antigen was negative Isolation until can confirm Covid negative Follow-up pending thyroid studies ordered in the emergency room Lovenox for DVT prophylaxis PPI for GI prophylaxis Bang catheter for close monitoring of urine output Central venous line management for optimal care with comorbid acute issues Case management consultation to assist with arranging outpatient follow-up preferably in [place] or [facility] Disposition plans will depend on clinical course but hopefully he can safely return home Discussed with patient's sisters current findings, concerns and plans including 1) evaluation and medical management for possible stroke, that with symptoms onset described more than 24 hours ago would not be within the window for clot Buster medications, 2) treatment and monitoring for diabetic ketoacidosis, 3) empiric coverage and evaluation for possibility of infectious causes, 4) need to arrange for primary care provider and medication management for chronic medical issues going forward, 5) [place] Medicaid expansion and [facility] affiliated [address] medication plan options to help him be able to be compliant with medications. All were given an opportunity to ask questions which were answered. Patient sister Ludy is primary contact at [phone] CODE STATUS was discussed with both of patient sisters. Given his chronic comorbid conditions were he to have acute cardiac arrest or need for intubation they indicate he would not want to be intubated or resuscitated. Allow natural orders have been placed. They ask that we would treat him aggressively otherwise and I assured them we would. Attestations Medical Necessity Statement*: Anticipated stay greater than two midnights in gentleman with multiple acute medical issues as described, at high risk of rapid clinical decline up to and including without appropriate intervention. Plans are as indicated. Coding Level of Care Code Acute Commercial Management Accountant for Chg Fwd Diagnoses Encephalopathy acute G93.40 Cerebral vascular accident I63.9 DKA (diabetic ketoacidosis) E11.10 Diabetes mellitus type: type 2 Diabetes mellitus complication detail: without coma Hypertension I10 Hyperlipidemia E78.5 Nicotine dependence F17.200 Does not have health insurance Z59.89
[2021-03-22 23:25] LABS: Reflex Lactate Order REFLEX LACTIC ORDERD
[2021-03-22] MEDS: cefTRIAXone 2,000 MG in sodium chloride 0.9% (plus) 50 ML 100 MG IV (23:45)
[2021-03-22 23:50] LABS: Acetaminophen < 5.0 ug/mL (10-30); Salicylate < 0.3 mg/dL (3-10)
[2021-03-23] VITALS (48 sets, daily range): BP systolic 104–250; BP diastolic 77–205; PULSE 75–148; RESP 14–35; TEMP 36.7–38.9; O2SAT 79–98
[2021-03-23 00:23] LABS: Glucose Point of Care 421 mg/dL (70-110)
[2021-03-23] MEDS: acyclovir 1,000 MG in sodium chloride 0.9% (100 ml) 100 ML 120 MG IV (00:40)
[2021-03-23] MEDS: vancomycin 1,500 MG/300 ML PIGGYBACK 200 MG IV (00:51)
[2021-03-23] MEDS: cefTRIAXone 1,000 MG in sodium chloride 0.9% (plus) 50 ML 100 MG IV (00:51)
[2021-03-23 01:00] LABS: Blood Urea Nitrogen 9 mg/dL (6-20); Calcium 9.2 mg/dL (8.5-10.5); Carbon Dioxide 16 mmol/L (22-29); Chloride 101 mmol/L (98-107); Free T4 Free Thyroxine 1.42 ng/dL (0.82-1.77); Glomerular Filtration Rate 144.4 mL/min (90-130); Glucose 383 mg/dL (65-115); Magnesium 1.6 mg/dL (1.7-2.3); Osmolality Calculated 302 mOsm/kg (285-295); Phosphorus 2.3 mg/dL (2.5-4.5); Sodium 139 mmol/L (136-145); Thyroid Stimulating Hormone 0.33 uIU/mL (0.27-4.20)
[2021-03-23 01:02] LABS: INR 0.99 (0.8-1.2)
[2021-03-23 01:04] LABS: Partial Thromboplastin Time 23.9 SECONDS (23.9-36.7)
[2021-03-23 01:05] LABS: Appearance CSF CLEAR (CLEAR); Color CSF COLORLESS (COLORLESS)
[2021-03-23 01:06] LABS: Anion Gap 25.5 (5-19); Lactic Acid level (Lactate) 4.1 mmol/L (0.5-2.2); Potassium 3.5 mmol/L (3.5-5.1)
[2021-03-23 01:18] LABS: Red Blood Cell CSF 0 10^3/uL (0-0); White Blood Cell CSF 3 /uL (0-5)
[2021-03-23 01:21] LABS: CSF Mononuclear # 0.003 10^3/uL (50-90); Mononuclear WBC CSF % 100 % (50-90); Polynuclear WBC CSF % 0 % (0-10)
[2021-03-23 01:32] LABS: CSF Specific Gravity 1.005
[2021-03-23] MEDS: sodium chloride 0.9% 1,000 ML 999 ML IV ×2 (01:43→03:02)
[2021-03-23 01:55] LABS: ABG PCO2 24.1 mmHg (35-45); ABG PH Result 7.34 (7.35-7.45); Arterial Blood Gas Hematocrit 53.1 % (42-52); Base Excess ABG -10.6 mmol/L (-2.0-2.0); Blood Gas Operator Identificat HARKR; Blood Gas Sample Site Brachial, left; Blood Gas Sample Type Arterial; Carboxyhemoglobin 2.1 %THgb (0.4-20.1); HCO3 ABG 12.9 mmol/L (22-26); HGB O2 Sat 92.1 % (95-100); Methemoglobin 0.5 % (0.4-1.5); Oxygen Device ROOM AIR; PO2 ABG 66.6 mmHg (80.0-100.0); Total Hemoglobin 17.3 g/dL (14-18)
[2021-03-23 02:07] LABS: Glucose Point of Care 471 mg/dL (70-110)
[2021-03-23 02:23] LABS: Lactate (Lactic Acid level) 2.2 mmol/L (0.5-2.2)
[2021-03-23 02:34] LABS: Glucose Point of Care 463 mg/dL (70-110)
[2021-03-23 02:59] LABS: Troponin 5 2HR Delta 3.4 ABS# (0-10)
--- NOTE | 2021-03-23 03:03 | PC.PHAR ---
Vancomycin is dosed at 1500mg IVPB every 12 hours to produce a predicted trough level of 10.68 (population based pharmacokinetic analysis). A trough level has been ordered from the lab to be obtained before the fourth dose to confirm and adjust if needed.
[2021-03-23 03:20] LABS: Glucose Point of Care 380 mg/dL (70-110)
[2021-03-23] MEDS: enoxaparin 40 mg/0.4 mL Syringe SUBCUT (03:28)
[2021-03-23 03:44] LABS: Glucose Point of Care 340 mg/dL (70-110)
[2021-03-23] MEDS: morphine 4 mg/mL SDV 1 mL IVP ×2 (03:46→10:05)
[2021-03-23] MEDS: magnesium sulfate premix 2 GM/50 ML PIGGYBACK IV (03:47)
[2021-03-23] MEDS: sodium chloride 0.9% 1,000 ML 150 ML IV ×2 (04:16→13:24)
[2021-03-23 04:33] LABS: Glucose Point of Care 270 mg/dL (70-110)
[2021-03-23 05:40] LABS: Glucose Point of Care 159 mg/dL (70-110)
--- NOTE | 2021-03-23 05:53 | ECG_ITS ---
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 Measurements Intervals [place] Rate: 126 P: 53 AK: 170 QRS: 49 QRSD: 115 T: 52 QT: 386 QTc: 561 Interpretive Statements SINUS TACHYCARDIA WITH OCCASIONAL VENTRICULAR PREMATURE COMPLEXES MODERATE INTRAVENTRICULAR CONDUCTION DELAY [110+ ms QRS DURATION] NONSPECIFIC T-WAVE ABNORMALITY ABNORMAL RHYTHM ECG Compared to ECG 03/22/2021 21:51:10 Ventricular premature complex(es) now present Intraventricular conduction delay now present T-wave abnormality now present Myocardial infarct finding no longer present Electronically Signed On 03-23-2021 23:58:35 CDT by Demetrius Durán M.D. [id number]
[2021-03-23] MEDS: dextrose 5%-ns + KCl 20 20 MEQ/1,000 ML BAG 100 MEQ IV (06:10)
--- NOTE | 2021-03-23 06:18 | NUR.SHIFT ---
Patient arrived on insulin gtt, titrated per protocol. Patient not answering questions appropriately or following commands. Patient arrived to unit tachycardic, labored kussaul breathing; breathing is not non labored, within normal limits. Fluids changed per MD order. Patient continues to pull on lines, remains in restraints. Patient educated on restraints, lines, and medications.
[2021-03-23 06:23] LABS: Basophils % 0.2 %; Hematocrit 49.1 % (42.0-52.0); Hemoglobin 16.3 g/dL (11.7-16.6); Lymphocytes # 1.5 10^3/uL (0.8-4.8); Lymphocytes % 6.8 %; Mean Corpuscular HGB Conc 33.2 g/dL (30.0-36.0); Mean Corpuscular Hemoglobin 29.3 pg (28.0-34.0); Mean Corpuscular Volume 88.2 fl (80-94); Monocytes # 1.3 10^3/uL (0.2-0.9); Monocytes % 6.1 %; Neutrophils # 18.52 10^3/uL (1.8-7.7); Neutrophils % 86.3 %; Nucleated Red Blood Cells % 0 %; Platelet Count 229 10^3/cmm (130-400); Red Blood Count 5.57 10^6/uL (4.1-5.3); Red Cell Distribution Width 13.1 % (12.1-15.1); White Blood Count 21.5 10^3/uL (4.0-10.0)
[2021-03-23 06:36] LABS: Glucose Point of Care 90 mg/dL (70-110)
[2021-03-23 06:57] LABS: Anion Gap 16.2 (5-19); Blood Urea Nitrogen 8 mg/dL (6-20); Carbon Dioxide 18 mmol/L (22-29); Chloride 113 mmol/L (98-107); Glomerular Filtration Rate 178.2 mL/min (90-130); Glucose 85 mg/dL (65-115); Magnesium 1.9 mg/dL (1.7-2.3); Osmolality Calculated 296 mOsm/kg (285-295); Phosphorus 2.3 mg/dL (2.5-4.5); Potassium 3.2 mmol/L (3.5-5.1); Sodium 144 mmol/L (136-145)
[2021-03-23 06:58] LABS: Lactate (Lactic Acid level) 1.6 mmol/L (0.5-2.2)
[2021-03-23 06:59] LABS: Creatinine Clr Calc Pharmacy 172.6628
[2021-03-23] MEDS: insulin regular-human 250 UNIT in sodium chloride 0.9% 250 ML IV (07:02)
--- NOTE | 2021-03-23 07:03 | PC.NURSE ---
Unable to scan insulin IV from ER, see titrations on IV insulin flow sheet.
[2021-03-23 07:08] LABS: Troponin 5 6HR 35.97 ng/L (0-15)
[2021-03-23 07:21] LABS: Troponin 5 6HR Delta 18.97 ng/L (0-12)
[2021-03-23 07:34] LABS: Chol HDL Ratio 7.36 mg/dL (1.0-5.00); Cholesterol 184 mg/dL (0-200); HDL Cholesterol 25 mg/dL (60-100); LDL Cholesterol Calculated 114 mg/dL (50-129); LDL HDL Ratio 4.56 RATIO (0.00-3.22); Triglycerides 223 mg/dL (0-150)
[2021-03-23] MEDS: acyclovir 1,000 MG in sodium chloride 0.9% (100 ml) 100 ML 100 MG IV ×2 (08:59→19:35)
[2021-03-23] MEDS: pantoprazole 40 mg SDV IVP (08:59)
[2021-03-23 09:21] LABS: Estmated Average Glucose 418; Hemoglobin A1C 16.2 % (4.0-6.0)
--- NOTE | 2021-03-23 09:31 | PC.OT ---
OT EVALUATION ATTEMPTED. HOLD PER NURSING, NOT ALERT AND ORIENTED OR RESPONDING AT THIS TIME.
--- NOTE | 2021-03-23 09:53 | P.PN_ITS ---
Subjective Subjective: Interval history: Patient was seen and examined this morning, continues to be agitated, and thrashing in bed, continues to be confused. He is also spiking temperature. Continues to be tachycardic , tachypneic , hypertensive, anion gap is closed. His other vitals and labs have been reviewed. Medications: Reviewed: Yes Vitals/I&O/Wt Last Vital Signs Temp 99.2 F 03/23/21 08:00 Pulse 109 H 03/23/21 08:00 Resp 22 H 03/23/21 08:00 BP 166/91 03/23/21 08:00 Pulse Ox 93 03/23/21 08:00 03/22/21 03/23/21 03/23/21 22:59 06:59 14:59 Intake Total 3962.5 / 3962.5 0 / 0 Output Total 500 / 500 Balance 3462.5 / 3462.5 0 / 0 Weight last 48 hrs Weight 80.286 kg Weight 74.843 kg Physical Exam Narrative: EXAM NARRATIVE: Agitated, currently AO x0 HENMT: COMMON NORMALS: normocephalic and atraumatic HEAD & SCALP: normocephalic and atraumatic Resp: OTHER: Tachypneic and bilateral wheezing present Cardio: COMMON NORMALS: regular rhythm, S1 normal heart sound present, S2 normal heart sound present, No gallops present (Cardio), No murmurs present (Cardio), No rub (Cardio) and Peripheral pulses 2+ throughout RATE: tachycardic RHYTHM: regular rhythm HEART SOUNDS: S1 normal heart sound present and S2 normal heart sound present PERIPHERAL PULSES: Peripheral pulses 2+ throughout GI: COMMON NORMALS: Normal to inspection, nondistended, normoactive bowel sounds present, Soft to palpation, non-tender, No hepatosplenomegaly present and no masses AUSCULTATION: Yes normoactive bowel sounds PALPATION: Yes Soft to palpation and Yes No hepatosplenomegaly present RECTAL EXAM: Yes deferred Extremity: COMMON NORMALS: no clubbing, cyanosis or edema and no pedal edema Urinary Catheter Management^: Bang: Cath Placed During This Visit: yes Reason for Continuing Indwelling Catheter: Accurate Measurement of Urinary Output in Critically Ill Patients Urinary Catheter Date of Insertion: 03/23/21 Urinary Catheter Time of Insertion: 00:03 Data : 03/23/21 06:00 03/23/21 06:00 Micro: Microbiology 03/22/21 23:15 Gram Stain - Final Cerebrospinal Fluid Cryptococcal Antigen - Final 03/22/21 21:50 Bacterial Antigens - Final Urine Kidney 03/22/21 22:00 Blood Culture - Preliminary Blood SPECIMEN COLLECTED 03/22/21 21:00 Blood Culture - Preliminary Blood SPECIMEN COLLECTED A&P Assessment and plan (1) Encephalopathy acute: Acute encephalopathy (multifactorial, subacute CVA, sepsis, 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 CT without contrast: Is concerning for subacute infarction involving the right frontal and temporal region. L/P : Done in the ER: Ruled out bacterial meningitis. X-ray chest: No acute infiltrates. Elevated lactic acid: Has normalized. Covid rapid and PCR negative, influenza negative, Bacterial antigen panel: Negative. Serum ammonia normal. CSF cryptococcal antigen: Negative CSF : West Nile antibody : Pending HSV: Pending, VDRL: Pending, [place] encephalitis: Pending Urine toxicology: Negative ABG: pH 7.34 PCO2: 24, PO2: 66.6, on room air Blood culture: Urine Legionella antigen: Urine culture: Respiratory viral panel pending: CTA head and neck: Carotid duplex: 2D echo: Continue vancomycin, Primaxin, acyclovir. ceftriaxone has been discontinued. Precedex, Ativan, Haldol. Status: Acute (2) DKA (diabetic ketoacidosis): 2/2 Uncontrolled DM. HbA1c:16 AG has closed. Currently on LDSSI Lantus 10 units subcu daily. Monitor fingerstick glucose. Status: Acute Qualifiers: Diabetes mellitus type: type 2 Diabetes mellitus complication detail: without coma Qualified Code(s): E11.10 - Type 2 diabetes mellitus with ketoacidosis without coma (3) Elevated troponin: Elevated troponin : Likely secondary demand ischemia: Follow 2D echo. Status: Acute (4) Cerebral vascular accident: Continue aspirin statin. Status: Acute (5) Hypertension: Status: Chronic (6) Diabetes mellitus, type II: Status: Chronic Additional A&P Information Code Status :Full code DVT PPX: Lovenox Attestations 2 Medical Necessity Statement*: Patient needs to be in hospital for management of acute encephalopathy. Coding Level of Care Code Acute Receiving Team Member for [facility] Diagnoses Encephalopathy acute G93.40 DKA (diabetic ketoacidosis) E11.10 Diabetes mellitus type: type 2 Diabetes mellitus complication detail: without coma Elevated troponin R77.8 Cerebral vascular accident I63.9 Hypertension I10 Diabetes mellitus, type II E11.9
--- NOTE | 2021-03-23 10:11 | PC.CHAP ---
Pastoral Care Encounter/Spiritual Assessment Type of Contact [] Declined home service director visit [] Patient/Family/Request visit [] Outpatient visit [] Follow-up visit [] Physician referral [] Code/Alert [x] Routine visit [] Staff referral [] Actively dying [] Patient sleeping [] Family support [] [] Out of room [] Palliative care [] [] Receiving care in room [] Pre-surgical visit [] Trauma [] Long length of stay [x] ICU visit [x] Other: patient having great difficulty breathing... Relational/Emotional Strength [] Patient feels connected with others/family/visitors/staff [] Distress [] Loneliness/isolation [] Abandonment Spirituality of Patient [] Person of Mariela [] Attends Congregational of their Mariela [] Believes in Prayer [] Reads Bible or Catholic materials [] There are Spiritual issues to be addressed Wrecking Supervisor Interventions [x] Prayer [] Active listening [] Non-anxious presence [] Spiritual/emotional support [] Crisis/trauma care [] Spiritual counseling [] Bereavement support [] Provided bereavement packet [] Provided Bible/devotional materials [] Provided toy/stuffed animal, coloring book to patient or family member [] Provided Communion [] Anointing/Hawi [] Salvation [x] Completed spiritual assessment [] Other: Impact on Illness or Injury [] Angry [] Fearful [] Anxious [] Often cries [] Exhaustion [] Unable to work [] Unable to attend jew [] Unable to walk/stand [] Unable to read [] Unable to drive [] Unable to eat/drink [] Unable to sleep [] Unable to be with family [] Patient intubated [] Other: Summary Time spent with patient
[2021-03-23] MEDS: LORazepam 2 mg/mL INJ 1 mL 1 MG IVP (10:12)
[2021-03-23] MEDS: vancomycin 1,500 MG/300 ML PIGGYBACK 150 MG IV ×2 (10:34→22:56)
[2021-03-23] MEDS: acetaminophen 650 mg Supp PR (10:35)
[2021-03-23] MEDS: lidocaine 1% 5 ML in potassium chloride premix 100 ML 25 ML IV (11:25)
[2021-03-23] MEDS: dexmedetomidine 400 MCG in sodium chloride 0.9% (100 ml) 100 ML IV (12:34)
[2021-03-23] MEDS: haloperidol inj 5 mg/mL INJ 1 mL IM (12:41)
[2021-03-23] MEDS: insulin lispro 100 unit/1 mL SUBCUT ×2 (12:51→21:06)
[2021-03-23 12:59] LABS: Ammonia 24 umol/L (16-60)
[2021-03-23 13:21] LABS: Glucose Point of Care 193 mg/dL (70-110)
[2021-03-23 13:21] LABS: Glucose Point of Care 145 mg/dL (70-110)
[2021-03-23 13:21] LABS: Glucose Point of Care 308 mg/dL (70-110)
[2021-03-23 13:21] LABS: Glucose Point of Care 149 mg/dL (70-110)
[2021-03-23 14:12] LABS: Coronavirus Test Green County Not Detected
--- NOTE | 2021-03-23 14:22 | PC.PT ---
Nursing recommends hold physical therapy due to patient unable to follow any directions at this time; will reattempt tomorrow.
--- NOTE | 2021-03-23 15:07 | PC.SLP ---
Pt unable to participate in AIRCRAFT MAINTENANCE ENGINEER eval this date due to medical status. AIRCRAFT MAINTENANCE ENGINEER will attempt to follow-up with the pt tomorrow.
[2021-03-23] MEDS: dextrose 5%-sod chloride 0.45% 1,000 ML 50 ML IV (16:27)
[2021-03-23 19:31] LABS: Glucose Point of Care 280 mg/dL (70-110)
[2021-03-23 20:21] LABS: Glucose Point of Care 296 mg/dL (70-110)
[2021-03-23] MEDS: insulin glargine 100 units/1 mL 10 UNIT SUBCUT (21:06)
[2021-03-23] MEDS: labetalol 5 mg/mL SDV 20mL 10 MG IVP (23:26)
[2021-03-24] VITALS (82 sets, daily range): BP systolic 107–166; BP diastolic 73–120; PULSE 69–93; RESP 14–44; TEMP 37–37.2; O2SAT 91–98; BMI 29.2
--- NOTE | 2021-03-24 00:18 | PC.NURSE ---
Nurse Note: Start of shift: Pt resting quietly in bed, wrist restraints secure bilaterally. Radial Pulses 3+ bilaterally. Cap refill WDL. Bang patent to DD. Precedex infusing at 0.6 mcg. Pt responds to tactile stimuli(painful stimuli). Precedex ran out earlier in shift and pt woke up and began to try to grab tubes and wires. Calmed down when precidex changed and restarted. BP up to 150's/100's. Labetolol given IVP x1 time per orders and BP down to 114/85 and has been consistent since. Currently resting with eyes closed, resp even and non labored. All vs and assessments as charted. Will continue to monitorl.
[2021-03-24] MEDS: acyclovir 1,000 MG in sodium chloride 0.9% (100 ml) 100 ML 100 MG IV ×3 (01:48→17:58)
[2021-03-24] MEDS: enoxaparin 40 mg/0.4 mL Syringe SUBCUT (01:52)
[2021-03-24] MEDS: dexmedetomidine 400 MCG in sodium chloride 0.9% (100 ml) 100 ML 14.61 MCG IV (03:37)
[2021-03-24 05:18] LABS: Basophils # 0.1 10^3/uL (0.0-0.1); Basophils % 0.5 %; Eosinophils # 0.1 10^3/uL (0.0-0.8); Eosinophils % 0.8 %; Hematocrit 48.3 % (42.0-52.0); Hemoglobin 15.9 g/dL (11.7-16.6); Lymphocytes # 1.3 10^3/uL (0.8-4.8); Lymphocytes % 8.8 %; Mean Corpuscular HGB Conc 32.9 g/dL (30.0-36.0); Mean Corpuscular Hemoglobin 30.1 pg (28.0-34.0); Mean Corpuscular Volume 91.3 fl (80-94); Mean Platelet Volume 11.6 fL (7.4-10.4); Monocytes # 1.1 10^3/uL (0.2-0.9); Monocytes % 7.5 %; Neutrophils # 11.97 10^3/uL (1.8-7.7); Neutrophils % 82.1 %; Nucleated Red Blood Cells % 0 %; Platelet Count 195 10^3/cmm (130-400); Red Blood Count 5.29 10^6/uL (4.1-5.3); Red Cell Distribution Width 13.3 % (12.1-15.1); White Blood Count 14.6 10^3/uL (4.0-10.0)
[2021-03-24] MEDS: labetalol 5 mg/mL SDV 20mL 10 MG IVP (05:22)
[2021-03-24 05:33] LABS: Alanine Aminotransferase 17 U/L (0-41); Albumin Level 3.2 g/dL (3.5-5.2); Alkaline Phosphatase 89 IU/L (40-130); Anion Gap 17.4 (5-19); Aspartate Amino Transferase 21 U/L (0-40); Blood Urea Nitrogen 13 mg/dL (6-20); Calcium 8.5 mg/dL (8.5-10.5); Carbon Dioxide 20 mmol/L (22-29); Chloride 107 mmol/L (98-107); Chol HDL Ratio 7.08 mg/dL (1.0-5.00); Cholesterol 170 mg/dL (0-200); Globulin 2.6 g/dL (1.3-4.6); Glomerular Filtration Rate 103.6 mL/min (90-130); Glucose 328 mg/dL (65-115); HDL Cholesterol 24 mg/dL (60-100); LDL Cholesterol Calculated 113 mg/dL (50-129); LDL HDL Ratio 4.71 RATIO (0.00-3.22); Osmolality Calculated 305 mOsm/kg (285-295); Potassium 3.4 mmol/L (3.5-5.1); Sodium 141 mmol/L (136-145); Total Bilirubin 0.9 mg/dL (0.15-1.2); Total Protein 5.8 g/dL (6.6-8.7); Triglycerides 164 mg/dL (0-150)
--- NOTE | 2021-03-24 06:00 | CTR_ITS ---
PROCEDURE INFORMATION: Exam: CT Angiography Head With Contrast, Arteriography Exam date and time: 03/24/2021 6:00 AM Age: 45 years old Clinical indication: Other: CVA; Additional info: CVA, CT angiogram cervical and intracranial vessels. On hold as of 1419 TECHNIQUE: Imaging protocol: Computed tomography angiography of the head with contrast. Exam focused on the arteries. 3D rendering (Not supervised by radiologist): MIP and/or 3D reconstructed images were created by the technologist. Radiation optimization: All CT scans at this facility use at least one of these dose optimization techniques: automated exposure control; mA and/or kV adjustment per patient size (includes targeted exams where dose is matched to clinical indication); or iterative reconstruction. Contrast material: OMNI 350; Contrast volume: 95 ml; Contrast route: INTRAVENOUS (IV); COMPARISON: CT head wo con* [id number] 03/22/2021 9:23 PM RADIATION DOSE METRICS: Total DLP (mGy-cm): 1947.04 FINDINGS: ANTERIOR CIRCULATION: Right internal carotid artery: There is atherosclerotic plaque throughout most prominent in the ophthalmic segment where there is severe stenosis. Right middle cerebral artery: There is luminal irregularity consistent with atherosclerotic disease. There is diminished flow distally in the regions of subacute infarct involving the right frontal and right temporal lobe. Right anterior cerebral artery: There is luminal irregularity consistent with atherosclerotic disease. Patient is right anterior cerebral artery dominant with a diminutive left anterior cerebral artery which shows diminished flow distally. Left internal carotid artery: There is atherosclerotic plaque throughout most prominent in the C4 through C6 segments with regions of moderate stenosis. Left middle cerebral artery: There is luminal irregularity consistent with atherosclerotic disease. Left anterior cerebral artery: There is luminal irregularity consistent with atherosclerotic disease.Patient is right anterior cerebral artery dominant with a diminutive left anterior cerebral artery which shows diminished flow distally. POSTERIOR CIRCULATION: Right vertebral artery: Atherosclerotic plaque with luminal irregularity and regions of qbur-sb-pvpbcbrs stenosis. Patient is right vertebral or artery dominant with a diminutive left vertebral artery. Left vertebral artery: Patient is right vertebral or artery dominant with a diminutive left vertebral artery. There is atherosclerotic plaque with luminal irregularity and regions of mild stenosis. Basilar artery: Unremarkable. No occlusion or significant stenosis. No aneurysm. Right posterior cerebral artery: Unremarkable. No occlusion or significant stenosis. No aneurysm. Left posterior cerebral artery: Unremarkable. No occlusion or significant stenosis. No aneurysm. Brain: Right frontal and right temporal subacute infarct with cytotoxic edema and sulcal effacement. No midline shift. Cerebral ventricles: Mild effacement of the frontal horn of the right ventricle. Bones/joints: Unremarkable. No acute fracture. Soft tissues: Unremarkable. IMPRESSION: 1. Multi-vessel atherosclerotic disease as described above. There is severe stenosis in the ophthalmic segment of the right internal carotid artery. 2. Right frontal and right temporal subacute infarct with sulcal effacement. No midline shift. PROCEDURE INFORMATION: Exam: CT Angiography Neck With Contrast Exam date and time: 03/24/2021 6:00 AM Age: 45 years old Clinical indication: Other: CVA; Additional info: CVA, CT angiogram cervical and intracranial vessels. On hold as of 1419 TECHNIQUE: Imaging protocol: Computed tomography angiography of the neck with contrast. 3D rendering (Not supervised by radiologist): MIP and/or 3D reconstructed images were created by the technologist. Radiation optimization: All CT scans at this facility use at least one of these dose optimization techniques: automated exposure control; mA and/or kV adjustment per patient size (includes targeted exams where dose is matched to clinical indication); or iterative reconstruction. Contrast material: OMNI 350; Contrast volume: 95 ml; Contrast route: INTRAVENOUS (IV); COMPARISON: CT head wo con* [id number] 03/22/2021 9:23 PM RADIATION DOSE METRICS: Total DLP (mGy-cm): 1947.04 FINDINGS: Right common carotid artery: There is atherosclerotic plaque in the distal common carotid artery without significant focal stenosis. Right internal carotid artery: There is calcified plaque in the proximal internal carotid artery with a short segment of moderate stenosis. Right external carotid artery: Scattered atherosclerotic plaque. No occlusion or stenosis of the origin. Left common carotid artery: There is atherosclerotic plaque without significant focal stenosis. No dissection or occlusion. Left internal carotid artery: There is atherosclerotic plaque most prominent proximally with a short segment of 70% stenosis. Left external carotid artery: There is atherosclerotic plaque at the origin without significant stenosis. Right vertebral artery: There is atherosclerotic plaque with regions of mild stenosis. No dissection or occlusion. Left vertebral artery: There is plaque with regions of mild stenosis. No dissection or occlusion. Thyroid: Multiple well-circumscribed thyroid nodules the larger of which measures 7 mm.No follow-up is recommended. Soft tissues: Normal. No significant soft tissue swelling. Bones/joints: No acute fracture. CT/CT angio headneck* [id number] IMPRESSION: Multi-vessel atherosclerotic disease as described above. This is most prominent in the proximal left internal carotid artery where there is a short segment of 70% stenosis. COMMENTS: Consistent with the [employer]'s Incidental Findings Committee white paper (J Am Keely Radiol 2015): In patients aged 35 years and older with an incidental thyroid nodule equal to or greater than 1.[address], MRI or extrathyroidal US, further evaluation with dedicated thyroid US is recommended for patients with normal life expectancy and without comorbidities. For smaller nodules without suspicious features, no further evaluation or follow up is recommended. REFERENCES: NASCET CRITERIA. The degree of internal carotid artery stenosis is based on NASCET criteria. Normal is no stenosis. Mild is less than 50% stenosis. Moderate is 50-69% stenosis. Severe is 70% to 99% stenosis. Total occlusion is no detectable patent lumen. Radiation Dose CTDIVOL = (mGy): DLP = 1947.04~1947.04 (mGy-cm)
--- NOTE | 2021-03-24 06:00 | USCV_ITS ---
Dimitrios Guerrero Age: 45 Gender: M : 1975 Exam Date: 03/24/2021 06:31 Ordering Phys: Khadijah Betts MD Technologist: [place] [facility] [place]: CVA BP: 123 / 73 HR: 76 Rhythm: Sinus Technical Quality: Adequate MEASUREMENTS (Male / Female) Normal Values 2D ECHO LV Diastolic Diameter PLAX 5.3 cm 4.2 - 5.9 / 3.9 - 5.3 cm LV Systolic Diameter PLAX 2.7 cm IVS Diastolic Thickness 1.4 cm 0.6 - 1.0 / 0.6 - 0.9 cm IVS Systolic Thickness 1.7 cm LVPW Diastolic Thickness 1.3 cm 0.6 - 1.0 / 0.6 - 0.9 cm LVPW Systolic Thickness 1.3 cm LVOT Diameter 2.1 cm LV Ejection Fraction 2D Teich 74.2 % LV Ejection Fraction MOD 2C 53.8 % LV Ejection Fraction 2C AL 54.0 % LA Diameter 3.7 cm LA Width 4.4 cm LA Height 4.7 cm RA Width 4.1 cm RA Height 3.7 cm Aorta at Sinotubular Diameter 2.5 cm DOPPLER AV Peak Velocity 123.0 cm/s LVOT Peak Velocity 106.0 cm/s AV Area Cont Eq vti 3.3 cm squared AV Area Cont Eq pk 3.0 cm squared MV Area PHT 5.0 cm squared Mitral E to A Ratio 0.8 MV E' Velocity 41.0 cm/s Mitral E to MV E' Ratio 11.2 Mitral E to LV E' Lateral Ratio 11.2 Mitral E to LV E' Septal Ratio 11.2 TR Peak Velocity 150.7 cm/s TR Peak Gradient 9.1 mmHg TV Peak E Velocity 79.0 cm/s Right Atrial Pressure 3.0 mmHg Pulmonary Artery Systolic Pressu 12.1 mmHg FINDINGS Left Ventricle Normal left ventricular cavity size. Normal left ventricular systolic function. No regional wall motion abnormalities. Left ventricular ejection fraction is estimated at 65 %. Grade I/IV diastolic dysfunction (abnormal relaxation filling pattern), normal to mildly elevated filling pressures. Right Ventricle The right ventricle is normal in size and function. Right Atrium The right atrium is normal in size. Left Atrium The left atrium is normal in size. Mitral Valve Moderately thickened mitral valve. Moderate mitral annular calcification. No mitral valve stenosis. Aortic Valve Severe aortic valve calcification. No aortic valve stenosis. No aortic valve regurgitation. Tricuspid Valve Structurally normal tricuspid valve without significant stenosis or regurgitation. Pulmonary artery systolic pressure is normal. Pulmonic Valve Structurally normal pulmonic valve without significant stenosis. There is no pulmonic regurgitation. Pericardium Normal pericardium without effusion. Aorta Normal ascending aorta dimension. CONCLUSIONS 1-Normal left ventricular cavity size. Normal left ventricular systolic function. No regional wall motion abnormalities. Left ventricular ejection fraction is estimated at 65 %. Grade I/IV diastolic dysfunction (abnormal relaxation filling pattern), normal to mildly elevated filling pressures. 2-Moderately thickened mitral valve. Moderate mitral annular calcification. No mitral valve stenosis. 3-Severe aortic valve calcification. No aortic valve stenosis. No aortic valve regurgitation. 4-There is no pericardial effusion. 5-Pulmonary artery systolic pressure is within normal limits. 6-Right atrial pressure is around 5 mm of mercury. 7-There are no prior echocardiogram studies to compare. Ferdinand Thomson MD (Electronically Signed) Final Date: 26 March 2021 15:31 S
--- NOTE | 2021-03-24 06:00 | USCV_ITS ---
Irenejeancarlos Dimitrios Age: 45 Gender: M : 1975 Exam Date: 03/24/2021 06:46 Ordering Phys: Khadijah Betts MD Technologist: Exam Location: [facility] – [place] Indication: CVA Risk Factors: Previous Vascular Surgery: Right Brachial BP: / Left Brachial BP: / Right Left Velocity (cm/s) Spectral Plaque Velocity (cm/s) Spectral Plaque Syst/Diast Broadening Syst/Diast Broadening 68.55/ 17.55 Prox CCA 41.30 / 13.20 51.30/ 10.95 Hetro Mid CCA 35.70 / 6.30 Hetro 48.15/ 11.75 Hetro Distal CCA 45.00 / 7.00 Hetro 63.77/ 21.93 Hetro Prox ICA 66.50 / 20.70 Hetro 60.67/ 18.10 Hetro Mid ICA 67.40 / 22.50 Hetro 66.20/ 27.90 Distal ICA 76.40 / 20.70 61.10 ECA 46.70 0.80 ICA/CCA 1.85 Antegrade Vertebral Antegrade 37.70/ 17.40 cm/s 15.40/ 4.80 cm/s Tri Subclavian Tri 67.60 54.00 FINDINGS Comparison: none available. No significant elevation of systolic or diastolic velocities. Mixture of calcified and noncalcified plaque in the bifurcations. Surface of the plaque is irregular. Antegrade vertebral arteries. CONCLUSIONS Bilateral ICA stenosis less than 50%. Moderate atherosclerotic plaque without stenosis. Dr. Ronel Huang DO (Electronically Signed) Final Date: 24 March 2021 10:56 S
--- NOTE | 2021-03-24 06:03 | PC.NURSE ---
NURSE NOTE: SHIFT SUMMARY: PT ALERT TO SELF ONLY, SOMETIMES RESPONDS TO NAME WITH ONE OR TWO WORDS. VERY AGITATED THIS SHIFT. PT ABLE TO MOVE DOWN IN BED WITH RESTRAINTS ON AND GRAB RODAS AND CENTRAL LINE TUBING. BP ELEVATED AT TIMES. LABETOLOL GIVEN IVP X2 TIMES THSI SHIFT. WAS EFFECTIVE FOR 1 TO TWO HOURS. PRECEDEX INFUSING @ 1.0 MCG AND PT STILL MOVING ALL OVER BED AND RESPONDING TO VERBAL STIMULI. PT NOT TAKEN TO CT AT THIS TIME D/T AGITATION AND PULLING ON TUBES EVEN IN RESTRAINTS. NOTIFIED DR. MENDOZA AT THIS TIME OF INABILITY FOR PT TO TOLERATE CT SCAN AT THIS TIME. ALL VS AND ASSESSMENTS CHARTED. WILL CONTINUE TO MONITOR.
[2021-03-24 07:45] LABS: Glucose Point of Care 332 mg/dL (70-110)
[2021-03-24] MEDS: insulin lispro 100 unit/1 mL SUBCUT ×4 (07:58→20:50)
[2021-03-24] MEDS: pantoprazole 40 mg SDV IVP (07:58)
[2021-03-24] MEDS: dexmedetomidine 400 MCG in sodium chloride 0.9% (100 ml) 100 ML 20.87 MCG IV ×2 (09:22→14:52)
--- NOTE | 2021-03-24 09:51 | PC.NUTR ---
Unable to do nutrition education again as Pt is still agitated and confused. I called Pt's sister and offered to send Heart Healthy/ Consistent CHO Nutrition Therapy as well as Stroke Nutrition Therapy in the mail with number and extension for FU. She agreed to that plan and will look me up Saturday if she needs to talk in person.
--- NOTE | 2021-03-24 10:00 | PC.CHAP ---
Pastoral Care Encounter/Spiritual Assessment Type of Contact [] Declined expert witness visit [] Patient/Family/Request visit [] Outpatient visit [] Follow-up visit [] Physician referral [] Code/Alert [x] Routine visit [] Staff referral [] Actively dying [] Patient sleeping [] Family support [] [] Out of room [] Palliative care [] [x] Receiving care in room [] Pre-surgical visit [] Trauma [] Long length of stay [x] ICU visit [x] Other: prayed over patient for healing and comfort Relational/Emotional Strength [] Patient feels connected with others/family/visitors/staff [] Distress [] Loneliness/isolation [] Abandonment Spirituality of Patient [] Person of Mariela [] Attends [employer]aritan of their Mariela [] Believes in Prayer [] Reads Bible or Muslim materials [] There are Spiritual issues to be addressed Sql Ssrs Developer Interventions [x] Prayer [] Active listening [] Non-anxious presence [] Spiritual/emotional support [] Crisis/trauma care [] Spiritual counseling [] Bereavement support [] Provided bereavement packet [] Provided Bible/devotional materials [] Provided toy/stuffed animal, coloring book to patient or family member [] Provided Communion [] Anointing/[place] [] Salvation [x] Completed spiritual assessment [] Other: Impact on Illness or Injury [] Angry [] Fearful [] Anxious [] Often cries [] Exhaustion [] Unable to work [] Unable to attend alevism [] Unable to walk/stand [] Unable to read [] Unable to drive [] Unable to eat/drink [] Unable to sleep [] Unable to be with family [] Patient intubated [] Other: Summary Time spent with patient
[2021-03-24 11:14] LABS: Glucose Point of Care 344 mg/dL (70-110)
[2021-03-24 11:33] LABS: Vancomycin Trough 7.8 ug/mL (10-15)
[2021-03-24] MEDS: vancomycin 1,500 MG/300 ML PIGGYBACK 150 MG IV ×2 (11:41→20:49)
[2021-03-24] MEDS: dextrose 5%-sod chloride 0.45% 1,000 ML 30 ML IV (11:44)
[2021-03-24] MEDS: dextrose 5%-sod chloride 0.45% 1,000 ML 50 ML IV (11:45)
[2021-03-24] MEDS: morphine 4 mg/mL SDV 1 mL IVP (12:21)
--- NOTE | 2021-03-24 14:31 | PC.OT ---
Attempted ot eval. Patient was heavily sedated and in restraints upon therapist arrival due to aggressinve behavior and attempting to pull out catheter.
--- NOTE | 2021-03-24 14:40 | P.PN_ITS ---
Subjective Subjective: Interval history: Patient was seen and examined this morning,no temperature spike overnight, he has remained calm on Precedex, opens eye on verbal command, states that he is feeling okay. His other vitals and labs have been reviewed. Medications: Reviewed: Yes Vitals/I&O/Wt Last Vital Signs Temp 98.8 F 03/24/21 12:00 Pulse 70 03/24/21 14:00 Resp 22 H 03/24/21 14:00 BP 133/93 03/24/21 14:00 Pulse Ox 94 03/24/21 14:00 03/23/21 03/24/21 03/24/21 22:59 06:59 14:59 Intake Total 2625 / 2845 686.875 / 3531.875 1253.58 / 1253.58 Output Total 1900 / 1900 600 / 2500 Balance 725 / 945 86.875 / 3428.579 5079.58 / 1253.58 Weight last 48 hrs Weight 79.861 kg Weight 80.286 kg Weight 74.843 kg Physical Exam Narrative: EXAM NARRATIVE: currently AO x1 HENMT: COMMON NORMALS: normocephalic and atraumatic HEAD & SCALP: normocephalic and atraumatic Resp: COMMON NORMALS: normal respiratory effort and clear to auscultation bilaterally AUSCULTATION: clear to auscultation bilaterally Cardio: COMMON NORMALS: regular rhythm, S1 normal heart sound present, S2 normal heart sound present, No gallops present (Cardio), No murmurs present (Cardio), No rub (Cardio) and Peripheral pulses 2+ throughout RATE: tachycardic RHYTHM: regular rhythm HEART SOUNDS: S1 normal heart sound present and S2 normal heart sound present PERIPHERAL PULSES: Peripheral pulses 2+ throughout GI: COMMON NORMALS: Normal to inspection, nondistended, normoactive bowel sounds present, Soft to palpation, non-tender, No hepatosplenomegaly present and no masses AUSCULTATION: Yes normoactive bowel sounds PALPATION: Yes Soft to palpation and Yes No hepatosplenomegaly present RECTAL EXAM: Yes deferred Extremity: COMMON NORMALS: no clubbing, cyanosis or edema and no pedal edema Urinary Catheter Management^: Bang: Cath Placed During This Visit: yes Reason for Continuing Indwelling Catheter: Accurate Measurement of Urinary Output in Critically Ill Patients Urinary Catheter Date of Insertion: 03/23/21 Urinary Catheter Time of Insertion: 00:03 Data : 03/24/21 05:00 03/24/21 05:00 Micro: Microbiology 03/22/21 23:15 Gram Stain - Final Cerebrospinal Fluid CSF Culture - Preliminary Cryptococcal Antigen - Final 03/24/21 03:00 Legionella Urinary Antigen - Final Urine Catheterized 03/22/21 22:00 Blood Culture - Preliminary Blood NEGATIVE TO DATE 03/22/21 21:00 Blood Culture - Preliminary Blood NEGATIVE TO DATE A&P Assessment and plan (1) Encephalopathy acute: Acute encephalopathy (multifactorial, subacute CVA, sepsis, 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 CT without contrast: Is concerning for subacute infarction involving the right frontal and temporal region. L/P : Done in the ER: Ruled out bacterial meningitis. X-ray chest: No acute infiltrates. Elevated lactic acid: Has normalized. Covid rapid and PCR negative, influenza negative, Bacterial antigen panel: Negative. Serum ammonia normal. CSF cryptococcal antigen: Negative CSF : West Nile antibody : Pending HSV: Pending, VDRL: Pending, [place] ence phalitis: Pending Urine toxicology: Negative ABG: pH 7.34 PCO2: 24, PO2: 66.6, on room air Blood culture:NTD Urine Legionella antigen: Negative Urine culture: Respiratory viral panel pending: CTA head and neck: Carotid duplex:Bilateral ICA stenosis less than 50% 2D echo: Continue vancomycin, Primaxin, acyclovir. ceftriaxone has been discontinued. Precedex, Ativan, Haldol. Status: Acute (2) DKA (diabetic ketoacidosis): 2/2 Uncontrolled DM. HbA1c:16 AG has closed. Currently on MDSSI Lantus 20 units subcu daily. D5 half NS: 30 cc an hour Monitor fingerstick glucose. Status: Acute Qualifiers: Diabetes mellitus type: type 2 Diabetes mellitus complication detail: without coma Qualified Code(s): E11.10 - Type 2 diabetes mellitus with ketoacidosis without coma (3) Elevated troponin: Elevated troponin : Likely secondary demand ischemia: Follow 2D echo. Status: Acute (4) Cerebral vascular accident: Continue aspirin statin. Status: Acute (5) Hypertension: Status: Chronic (6) Diabetes mellitus, type II: Status: Chronic Additional A&P Information Code Status :Full code DVT PPX: Lovenox Attestations Medical Necessity Statement*: Patient is to be in hospital for management of acute encephalopathy. Coding Level of Care Code Acute Feed Mill Lab Technician for Chg Fwd Diagnoses Encephalopathy acute G93.40 DKA (diabetic ketoacidosis) E11.10 Diabetes mellitus type: type 2 Diabetes mellitus complication detail: without coma Elevated troponin R77.8 Cerebral vascular accident I63.9 Hypertension I10 Diabetes mellitus, type II E11.9
--- NOTE | 2021-03-24 15:31 | PC.SLP ---
Pt is more alert today, per report, but is still not ready for TRACK WELDER evaluation. TRACK WELDER will attempt to follow-up with tomorrow.
[2021-03-24] MEDS: nicotine 21 mg Patch 1 PATCH TRANSDERMA (16:03)
[2021-03-24 16:44] LABS: Glucose Point of Care 262 mg/dL (70-110)
[2021-03-24] MEDS: lidocaine 1% 5 ML in potassium chloride premix 100 ML 25 ML IV (17:58)
--- NOTE | 2021-03-24 18:20 | PC.NURSE ---
Shift Note Frequent safety and comfort rounds continue. Orders and/or nursing care completed as indicated. Patient monitored for response to intervention and treatment(s). Education provided includes precedex teaching. Patient and/or software sales representative verbalized understanding. Pt's sister's have both been updated throughout the shift. Pt is still on precedex. The precedex was turned down during the shift. The pt was alert to self and place before starting to get agitated and pulling at lines again. Will continue to monitor.
[2021-03-24 20:18] LABS: Glucose Point of Care 161 mg/dL (70-110)
[2021-03-24] MEDS: insulin glargine 100 units/1 mL 20 UNIT SUBCUT (20:49)
[2021-03-24] MEDS: dexmedetomidine 400 MCG in sodium chloride 0.9% (100 ml) 100 ML 12.53 MCG IV (20:57)
[2021-03-25] VITALS (95 sets, daily range): BP systolic 125–202; BP diastolic 81–125; PULSE 77–129; RESP 12–50; TEMP 36.8–38.1; O2SAT 92–98
[2021-03-25] MEDS: acyclovir 1,000 MG in sodium chloride 0.9% (100 ml) 100 ML 120 MG IV ×3 (00:50→18:13)
[2021-03-25] MEDS: labetalol 5 mg/mL SDV 20mL 10 MG IVP ×4 (02:37→21:57)
[2021-03-25] MEDS: enoxaparin 40 mg/0.4 mL Syringe SUBCUT (02:37)
[2021-03-25] MEDS: vancomycin 1,500 MG/300 ML PIGGYBACK 150 MG IV ×2 (03:30→13:11)
--- NOTE | 2021-03-25 03:51 | PC.NURSE ---
Addendum entered by Jeanine Liang RN 03/25/21 04:58: Patient became increasingly hypertensive, prn medication given. Original Note: Shift Note Frequent safety and comfort rounds continue. Orders and/or nursing care completed as indicated. Patient monitored for response to intervention and treatment(s). Education provided includes medications with side effects, orientation, fall safety, hypertension. Patient not orientated at this time so frequent reeducation required. Patient easily awaken, remains calm on precedex gtt, follows commands, bed exercises and ROM performed. Patient demonstrated equal astronomy teacher, left arm drop when holding arms out straight, equal lower extremity movement and strength. Patient answered questions appropriately, speech slow with slur. Gtt's titrated per protocol. Lines and tubes patent. Will continue to monitor.
[2021-03-25] MEDS: dexmedetomidine 400 MCG in sodium chloride 0.9% (100 ml) 100 ML 12.53 MCG IV ×2 (05:03→08:33)
[2021-03-25 05:50] LABS: Basophils # 0.1 10^3/uL (0.0-0.1); Basophils % 0.4 %; Eosinophils # 0.2 10^3/uL (0.0-0.8); Hematocrit 48.2 % (42.0-52.0); Hemoglobin 16.1 g/dL (11.7-16.6); Lymphocytes # 1.9 10^3/uL (0.8-4.8); Lymphocytes % 15.5 %; Mean Corpuscular HGB Conc 33.4 g/dL (30.0-36.0); Mean Corpuscular Hemoglobin 29.9 pg (28.0-34.0); Mean Corpuscular Volume 89.6 fl (80-94); Monocytes # 0.8 10^3/uL (0.2-0.9); Monocytes % 6.3 %; Neutrophils # 9.18 10^3/uL (1.8-7.7); Neutrophils % 75.4 %; Nucleated Red Blood Cells % 0 %; Platelet Count 195 10^3/cmm (130-400); Red Blood Count 5.38 10^6/uL (4.1-5.3); Red Cell Distribution Width 13.2 % (12.1-15.1); White Blood Count 12.2 10^3/uL (4.0-10.0)
[2021-03-25 06:22] LABS: Alanine Aminotransferase 15 U/L (0-41); Albumin Level 3.1 g/dL (3.5-5.2); Alkaline Phosphatase 80 IU/L (40-130); Anion Gap 17.9 (5-19); Aspartate Amino Transferase 20 U/L (0-40); Blood Urea Nitrogen 14 mg/dL (6-20); Calcium 8.7 mg/dL (8.5-10.5); Carbon Dioxide 20 mmol/L (22-29); Chloride 108 mmol/L (98-107); Globulin 2.5 g/dL (1.3-4.6); Glomerular Filtration Rate 144.4 mL/min (90-130); Glucose 160 mg/dL (65-115); Osmolality Calculated 300 mOsm/kg (285-295); Sodium 143 mmol/L (136-145); Total Bilirubin 0.7 mg/dL (0.15-1.2); Total Protein 5.6 g/dL (6.6-8.7)
[2021-03-25 06:27] LABS: Potassium 2.9 mmol/L (3.5-5.1)
[2021-03-25 07:44] LABS: Magnesium 1.6 mg/dL (1.7-2.3)
[2021-03-25 08:16] LABS: Glucose Point of Care 218 mg/dL (70-110)
[2021-03-25] MEDS: pantoprazole 40 mg SDV IVP (08:26)
[2021-03-25] MEDS: insulin lispro 100 unit/1 mL SUBCUT ×4 (08:26→20:28)
--- NOTE | 2021-03-25 09:30 | PC.NURSE ---
Performed paris care, gave bed bath, changed linens and transferred pt from bed to chair. gave pt supplies to preform oral care. Pt tolerated transfer well. call light within reach.
[2021-03-25] MEDS: magnesium sulfate premix 2 GM/50 ML PIGGYBACK IV (10:31)
[2021-03-25] MEDS: lidocaine 1% 5 ML in potassium chloride premix 100 ML 25 ML IV ×2 (10:31→16:39)
--- NOTE | 2021-03-25 11:30 | PC.NURSE ---
Transferred pt from chair back to bed due to fluids and medications not going through central line in groin effectively. Pt transferred well with very little assistance. Pt has two sisters at bedside and watching tv. Pt given call light and had no questions at this time.
[2021-03-25 11:48] LABS: Vancomycin Trough 17.2 ug/mL (10-15)
[2021-03-25 11:49] LABS: Glucose Point of Care 247 mg/dL (70-110)
[2021-03-25] MEDS: FUROsemide 10 mg/mL SDV 2mL 20 MG IVP (13:11)
--- NOTE | 2021-03-25 14:00 | PC.NURSE ---
Patient has been seen in room on three separate occasions standing in room and attempting to walk towards the bathroom with central line pulled tight and catheter still hooked on bed. Education has been provided web content director light and assistance with transfers. Will continue to educate.
[2021-03-25] MEDS: iohexol 350 mg/mL 100 mL Btl IV (17:11)
[2021-03-25 17:35] LABS: Glucose Point of Care 180 mg/dL (70-110)
--- NOTE | 2021-03-25 19:18 | P.PN_ITS ---
Subjective Subjective: Interval history: Patient was seen and examined this morning,currently he is alert and awake, communicates well.Deny any active complain. Off precedex. His other vitals and labs have been reviewed. Medications: Reviewed: Yes Vitals/I&O/Wt Last Vital Signs Temp 98.2 F 03/25/21 16:00 Pulse 129 H 03/25/21 18:45 Resp 19 H 03/25/21 18:45 BP 163/107 03/25/21 18:45 Pulse Ox 94 03/25/21 16:00 03/25/21 03/25/21 03/25/21 06:59 14:59 22:59 Intake Total 721.493 / 3108.073 418.855 / 335.443 5703 / 2078.855 Output Total 600 / 2500 2200 / 2200 Balance 121.493 / 608.073 418.855 / 418.855 -540 / -121.145 Weight last 48 hrs Weight 80.83 kg Weight 79.861 kg Physical Exam Narrative: EXAM NARRATIVE: AO*3 HENMT: COMMON NORMALS: normocephalic and atraumatic HEAD & SCALP: normocephalic and atraumatic Resp: OTHER: B/l Diminished breath sound Cardio: COMMON NORMALS: regular rhythm, S1 normal heart sound present, S2 normal heart sound present, No gallops present (Cardio), No murmurs present (Cardio), No rub (Cardio) and Peripheral pulses 2+ throughout RATE: tachycardic RHYTHM: regular rhythm HEART SOUNDS: S1 normal heart sound present and S2 normal heart sound present PERIPHERAL PULSES: Peripheral pulses 2+ throughout GI: COMMON NORMALS: Normal to inspection, nondistended, normoactive bowel sounds present, Soft to palpation, non-tender, No hepatosplenomegaly present and no masses AUSCULTATION: Yes normoactive bowel sounds PALPATION: Yes Soft to palpation and Yes No hepatosplenomegaly present RECTAL EXAM: Yes deferred Extremity: COMMON NORMALS: no clubbing, cyanosis or edema and no pedal edema Urinary Catheter Management^: Bang: Cath Placed During This Visit: yes Reason for Continuing Indwelling Catheter: Accurate Measurement of Urinary Ou tput in Critically Ill Patients Urinary Catheter Date of Insertion: 03/23/21 Urinary Catheter Time of Insertion: 00:03 Data : 03/25/21 05:13 03/25/21 05:13 Micro: Microbiology 03/22/21 23:15 Gram Stain - Final Cerebrospinal Fluid CSF Culture - Preliminary Cryptococcal Antigen - Final A&P Assessment and plan (1) Encephalopathy acute: Acute encephalopathy (multifactorial, subacute CVA, sepsis, 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 CT without contrast: Is concerning for subacute infarction involving the right frontal and temporal region. CTA head and neck: Multi-vessel atherosclerotic disease . most prominent in the proximal left internal carotid artery where there is a short segment of 70% stenosis. Carotid duplex:Bilateral ICA stenosis less than 50% L/P : Done in the ER: Ruled out bacterial meningitis. X-ray chest: No acute infiltrates. Elevated lactic acid: Has normalized. Covid rapid and PCR negative, influenza negative, Bacterial antigen panel: Negative. Serum ammonia normal. CSF cryptococcal antigen: Negative CSF : West Nile antibody : Pending HSV: Pending, VDRL: Pending, [place] encephalitis: Pending Urine toxicology: Negative ABG: pH 7.34 PCO2: 24, PO2: 66.6, on room air Blood culture:NTD Urine Legionella antigen: Negative Urine culture: Respiratory viral panel pendinD echo: Asprin 81 mg po daily plavix 75 mg po daily Lipitor 40 mg po daily Initially on vancomycin, acyclovir was discontinued today. Low clinical suspicion of HSV and MRSA ceftriaxone has been discontinued. Continue Primaxin, Precedex, Ativan, Haldol. Neurology follow up as outpatient. Status: Acute (2) DKA (diabetic ketoacidosis): 2/2 Uncontrolled DM. HbA1c:16 AG has closed. Currently on MDSSI Lantus 20 units subcu daily. Carbohydrate consistent diet. Monitor fingerstick glucose. Status: Acute Qualifiers: Diabetes mellitus type: type 2 Diabetes mellitus complication detail: without coma Qualified Code(s): E11.10 - Type 2 diabetes mellitus with ketoacidosis without coma (3) Elevated troponin: Elevated troponin : Likely secondary demand ischemia: Follow 2D echo. Status: Acute (4) Cerebral vascular accident: Continue aspirin statin. Status: Acute (5) Hypertension: Status: Chronic (6) Diabetes mellitus, type II: Status: Chronic Additional A&P Information Code Status :Full code DVT PPX: Lovenox Attestations Medical Necessity Statement*: Patient needs to be in hospital for the Ac encephalopathy. Coding Level of Care Code Acute Veneer Taping Machine Operator for g Terry Diagnoses Encephalopathy acute G93.40 DKA (diabetic ketoacidosis) E11.10 Diabetes mellitus type: type 2 Diabetes mellitus complication detail: without coma Elevated troponin R77.8 Cerebral vascular accident I63.9 Hypertension I10 Diabetes mellitus, type II E11.9
[2021-03-25] MEDS: hyDRALAzine 50 mg Tablet PO (20:28)
[2021-03-25] MEDS: insulin glargine 100 units/1 mL 20 UNIT SUBCUT (20:28)
[2021-03-25] MEDS: atorvastatin 40 mg Tablet PO (20:28)
[2021-03-25 20:40] LABS: Glucose Point of Care 347 mg/dL (70-110)
[2021-03-25] MEDS: acetaminophen 325 mg Tablet 650 MG PO (21:44)
[2021-03-26] VITALS (64 sets, daily range): BP systolic 152–196; BP diastolic 85–112; PULSE 76–118; RESP 16–34; TEMP 36.5–37.4; O2SAT 90–95
[2021-03-26] MEDS: enoxaparin 40 mg/0.4 mL Syringe SUBCUT (03:39)
[2021-03-26 05:11] LABS: Basophils % 0.3 %; Eosinophils # 0.3 10^3/uL (0.0-0.8); Eosinophils % 2.9 %; Hematocrit 47.7 % (42.0-52.0); Lymphocytes # 1.9 10^3/uL (0.8-4.8); Lymphocytes % 21.9 %; Mean Corpuscular HGB Conc 33.5 g/dL (30.0-36.0); Mean Corpuscular Hemoglobin 29.3 pg (28.0-34.0); Mean Corpuscular Volume 87.2 fl (80-94); Mean Platelet Volume 12.1 fL (7.4-10.4); Monocytes # 0.6 10^3/uL (0.2-0.9); Monocytes % 7.1 %; Neutrophils # 5.87 10^3/uL (1.8-7.7); Neutrophils % 67.6 %; Nucleated Red Blood Cells % 0 %; Platelet Count 206 10^3/cmm (130-400); Red Blood Count 5.47 10^6/uL (4.1-5.3); White Blood Count 8.7 10^3/uL (4.0-10.0)
[2021-03-26 05:33] LABS: Alanine Aminotransferase 18 U/L (0-41); Albumin Level 3.2 g/dL (3.5-5.2); Alkaline Phosphatase 92 IU/L (40-130); Anion Gap 16.9 (5-19); Aspartate Amino Transferase 31 U/L (0-40); Blood Urea Nitrogen 9 mg/dL (6-20); Calcium 8.6 mg/dL (8.5-10.5); Carbon Dioxide 22 mmol/L (22-29); Chloride 105 mmol/L (98-107); Glomerular Filtration Rate 178.2 mL/min (90-130); Glucose 223 mg/dL (65-115); Osmolality Calculated 298 mOsm/kg (285-295); Sodium 141 mmol/L (136-145); Total Bilirubin 0.8 mg/dL (0.15-1.2); Total Protein 6.2 g/dL (6.6-8.7)
[2021-03-26 05:49] LABS: Potassium 2.9 mmol/L (3.5-5.1)
--- NOTE | 2021-03-26 06:11 | PC.NURSE ---
Shift Note Frequent safety and comfort rounds continue. Orders and/or nursing care completed as indicated. Patient monitored for response to intervention and treatment(s). Education provided includes fall safety with call light use, medications with side effects, S/S to report. Patient with intermittent confusion and short term memory requiring repeated education. Patient remained calm and cooperative throughout shift but would forget limitations with attempts to get out of bed by self without using call light, picking at lines and tubes, removing BP cuff, oxygen sensor and heart monitor. Patient watched TV all night without any sleep despite comfort measures provided by this nurse. Precedex remained off during shift. Bang patent and draining. Will continue to monitor.
[2021-03-26 06:20] LABS: Magnesium 1.3 mg/dL (1.7-2.3)
[2021-03-26 08:32] LABS: Glucose Point of Care 214 mg/dL (70-110)
[2021-03-26] MEDS: amlodipine 10 mg Tablet PO (08:54)
[2021-03-26] MEDS: clopidogrel 75 mg Tablet PO (08:54)
[2021-03-26] MEDS: magnesium oxide 400 mg tablet PO ×2 (08:54→17:46)
[2021-03-26] MEDS: insulin lispro 100 unit/1 mL SUBCUT ×4 (08:55→21:27)
[2021-03-26] MEDS: aspirin 81 mg EC Tablet PO (08:55)
[2021-03-26] MEDS: pantoprazole 40 mg SDV IVP (08:55)
[2021-03-26] MEDS: magnesium sulfate premix 4 GM/100 ML PREMIX IV (08:55)
[2021-03-26] MEDS: potassium chloride premix 100 ML 25 MEQ IV ×2 (08:56→17:45)
[2021-03-26] MEDS: labetalol 5 mg/mL SDV 20mL 10 MG IVP (09:10)
[2021-03-26] MEDS: potassium chloride ER 20 mEq Tablet 40 MEQ PO (09:10)
--- NOTE | 2021-03-26 10:16 | P.PN_ITS ---
Subjective Subjective: Interval history: Patient was seen and examined this morning,he is doing better, tolerating diet well. Alert, awake and oriented.Vitals and labs have been reviewed. Medications: Reviewed: Yes Vitals/I&O/Wt Last Vital Signs Temp 98.4 F 03/26/21 09:00 Pulse 85 03/26/21 09:30 Resp 21 H 03/26/21 09:30 BP 196/112 03/26/21 09:30 Pulse Ox 95 03/26/21 09:00 03/25/21 03/26/21 03/26/21 22:59 06:59 14:59 Intake Total 2335 / 3585.084 338 / 3923.084 240 / 240 Output Total 2750 / 2750 400 / 400 Balance -415 / 835.084 338 / 1173.084 -160 / -160 Weight last 48 hrs Weight 80.513 kg Weight 80.83 kg Physical Exam Narrative: EXAM NARRATIVE: AO*3 HENMT: COMMON NORMALS: normocephalic and atraumatic HEAD & SCALP: normocephalic and atraumatic Resp: COMMON NORMALS: normal respiratory effort and clear to auscultation bilaterally AUSCULTATION: clear to auscultation bilaterally Cardio: COMMON NORMALS: regular rhythm, S1 normal heart sound present, S2 normal heart sound present, No gallops present (Cardio), No murmurs present ( Cardio), No rub (Cardio) and Peripheral pulses 2+ throughout RATE: tachyc ardic RHYTHM: regular rhythm HEART SOUNDS: S1 normal heart sound present and S2 normal heart sound present PERIPHERAL PULSES: Peripheral pulses 2+ throughout GI: COMMON NORMALS: Normal to inspection, nondistended, normoactive bowel sounds present, Soft to palpation, non-tender, No hepatosplenomegaly present and no masses AUSCULTATION: Yes normoactive bowel sounds PALPATION: Yes Soft to palpation and Yes No hepatosplenomegaly present RECTAL EXAM: Yes deferred Extremity: COMMON NORMALS: no clubbing, cyanosis or edema and no pedal edema Urinary Catheter Management^: Bang: Cath Placed During This Visit: yes Reason for Continuing Indwelling Catheter: Accurate Measurement of Urinary Output in Critically Ill Patients Urinary Catheter Date of Insertion: 03/23/21 Urinary Catheter Time of Insertion: 00:03 Data : 03/26/21 04:40 03/26/21 14:20 Micro: Microbiology 03/22/21 23:15 Gram Stain - Final Cerebrospinal Fluid CSF Culture - Final Cryptococcal Antigen - Final A&P Assessment and plan (1) Encephalopathy acute: Acute encephalopathy (multifactorial, subacute CVA, sepsis, 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 CT without contrast: Is concerning for subacute infarction involving the right frontal and temporal region. CTA head and neck: Multi-vessel atherosclerotic disease . most prominent in the proximal left internal carotid artery where there is a short segment of 70% stenosis. Carotid duplex:Bilateral ICA stenosis less than 50% L/P : Done in the ER: Ruled out bacterial meningitis. X-ray chest: No acute infiltrates. Elevated lactic acid: Has normalized. Covid rapid and PCR negative, influenza negative, Bacterial antigen panel: Negative. Serum ammonia normal. CSF cryptococcal antigen: Negative CSF : West Nile antibody : Pending HSV: Pending, VDRL: Pending, [place] encephalitis: Pending Urine toxicology: Negative ABG: pH 7.34 PCO2: 24, PO2: 66.6, on room air Blood culture:NTD Urine Legionella antigen: Negative Urine culture: Respiratory viral panel pendinD echo: Asprin 81 mg po daily plavix 75 mg po daily Lipitor 40 mg po daily Initially on vancomycin, acyclovir was discontinued today. Low clinical boom picion of HSV and MRSA ceftriaxone has been discontinued. Continue Primaxin to complete total of 5 day course Precedex, haldol discontinued Continue Ativan PRN Neurology follow up as outpatient. Status: Acute (2) DKA (diabetic ketoacidosis): 2/2 Uncontrolled DM. HbA1c:16 AG has closed. Currently on MDSSI Lantus 20 units subcu daily. Carbohydrate consistent diet. Monitor fingerstick glucose. Status: Acute Qualifiers: Diabetes mellitus type: type 2 Diabetes mellitus complication detail: without coma Qualified Code(s): E11.10 - Type 2 diabetes mellitus with ketoacidosis without coma (3) Elevated troponin: Elevated troponin : Likely secondary demand ischemia: Follow 2D echo. Status: Acute (4) Cerebral vascular accident: Continue aspirin statin. Status: Acute (5) Hypertension: Amlodipine 10 mg po daily Lisinopril 10 mg po daily Status: Chronic (6) Diabetes mellitus, type II: Uncontrolled DM Lantus 20 u sc daily at night time SSI FSG Status: Chronic Additional A&P Information Code Status :Full code DVT PPX: Lovenox. Disposition:Home.Anticipated discharge in next 24 to 48 hrs. Attestations Medical Necessity Statement*: Patient needs to be in hospital for the management of above defined problems. Coding Level of Care Code Acute Dehydrogenation Converter Operator for Chg Fwd Diagnoses Encephalopathy acute G93.40 DKA (diabetic ketoacidosis) E11.10 Diabetes mellitus type: type 2 Diabetes mellitus complication detail: without coma Elevated troponin R77.8 Cerebral vascular accident I63.9 Hypertension I10 Diabetes mellitus, type II E11.9
[2021-03-26] MEDS: lisinopril 10 mg Tablet PO (10:48)
[2021-03-26 11:49] LABS: Glucose Point of Care 287 mg/dL (70-110)
--- NOTE | 2021-03-26 14:21 | PC.NURSE ---
Transferred patient to [facility] room 277-1. Care handed off to Amarilys PURDY. Belongings sent with patient. Visitors accompanied patient during transfer.
[2021-03-26 14:52] LABS: Anion Gap 15.2 (5-19); Blood Urea Nitrogen 7 mg/dL (6-20); Calcium 8.2 mg/dL (8.5-10.5); Carbon Dioxide 23 mmol/L (22-29); Chloride 99 mmol/L (98-107); Glomerular Filtration Rate 178.2 mL/min (90-130); Glucose 292 mg/dL (65-115); Magnesium 1.9 mg/dL (1.7-2.3); Osmolality Calculated 287 mOsm/kg (285-295); Potassium 3.2 mmol/L (3.5-5.1); Sodium 134 mmol/L (136-145)
[2021-03-26] MEDS: lidocaine 1% INJ 20 mL 5 ML IV (17:46)
[2021-03-26 17:56] LABS: Glucose Point of Care 269 mg/dL (70-110)
[2021-03-26 21:06] LABS: Glucose Point of Care 285 mg/dL (70-110)
[2021-03-26] MEDS: atorvastatin 40 mg Tablet PO (21:23)
[2021-03-26] MEDS: insulin glargine 100 units/1 mL 20 UNIT SUBCUT (21:23)
[2021-03-26] MEDS: dextrose 5%-sod chloride 0.45% 1,000 ML 30 ML IV (22:07)
[2021-03-27] VITALS: BP 161/94; PULSE 89; RESP 17; TEMP 36.9; O2SAT 91
[2021-03-27] MEDS: enoxaparin 40 mg/0.4 mL Syringe SUBCUT (02:43)
[2021-03-27 03:57] VITALS: BP 169/91; PULSE 91; RESP 17; TEMP 37.2; O2SAT 91
[2021-03-27 06:32] LABS: Glucose Point of Care 154 mg/dL (70-110)
[2021-03-27 08:00] VITALS: BP 185/109; PULSE 88; RESP 17; TEMP 36.9; O2SAT 93
[2021-03-27] MEDS: insulin lispro 100 unit/1 mL SUBCUT ×2 (08:39→11:46)
[2021-03-27] MEDS: potassium chloride ER 20 mEq Tablet 40 MEQ PO (08:39)
[2021-03-27] MEDS: magnesium oxide 400 mg tablet PO (08:39)
[2021-03-27] MEDS: aspirin 81 mg EC Tablet PO (08:40)
[2021-03-27] MEDS: clopidogrel 75 mg Tablet PO (08:40)
[2021-03-27] MEDS: amlodipine 10 mg Tablet PO (08:40)
[2021-03-27] MEDS: lisinopril 10 mg Tablet PO (08:40)
[2021-03-27] MEDS: pantoprazole 40 mg SDV IVP (11:14)
[2021-03-27 11:22] VITALS: BP 151/87; PULSE 76; RESP 17; TEMP 36.8; O2SAT 92
[2021-03-27 11:34] LABS: Glucose Point of Care 267 mg/dL (70-110)
--- NOTE | 2021-03-27 13:38 | PM.DCS ---
Discharge Providers Date of Admission: 03/23/21 00:30 Date of Discharge: March 27, 2021 Attending Provider at Admission: Khadijah Betts MD Attending Provider at Discharge: Mikal Benson MD Diagnoses at Discharge Discharge Diagnosis (1) Encephalopathy acute: Status: Acute (2) DKA (diabetic ketoacidosis): Status: Acute Qualifiers: Diabetes mellitus complication detail: without coma Diabetes mellitus type: type 2 Qualified Code(s): E11.10 - Type 2 diabetes mellitus with ketoacidosis without coma (3) Elevated troponin: Status: Acute (4) Cerebral vascular accident: Status: Acute (5) Hypertension: Status: Chronic (6) Diabetes mellitus, type II: Status: Chronic Reason for Visit Reason for Visit: [facility] Hospital Course Hospital Course This is a 38-year-old male with a past medical history of CVA with residual left-sided weakness, history of type 2 diabetes mellitus, hypertension, high cholesterol, does not have any insurance, who presents to [facility] due to altered mental status Patient was admitted to [facility] for acute encephalopathy multifactorial from subacute CVA, DKA For DKA, managed DKA protocol, A1c 16, clinically improved, discharged on Lantus 12 units twice daily, moderate dose sliding scale, Metformin 500 twice daily, with close follow with primary care provider as outpatient For history of subacute CVA, history of CVA in the past: CT of the head 1. Findings worrisome for subacute infarction involving the right frontal and temporal region. 2. Chronic right posterior frontal and left cerebellar infarcts as described CTA of the head and neck 1. Multi-vessel atherosclerotic disease as described above. There is severe stenosis in the ophthalmic segment of the right internal carotid artery. 2. Right frontal and right temporal subacute infarct with sulcal effacement. No midline shift. Multi-vessel atherosclerotic disease as described above. This is most prominent in the proximal left internal carotid artery where there is a short segment of 70% stenosis. -Patient was clinically monitored, his mentation improved, on discharge he was alert to person, to place, to time, had word finding difficulties, no facial droop, no focal neurologic deficits that I could discern -Discharged on aspirin, statin, and Plavix for 17 remaining days -Given CVAs and multiple vascular territories, discharged on event monitor -Follow-up with cardiology in 1 month -Given multiple also arthrosclerotic disease, and left internal carotid artery stenosis proximal, short segment of 70%, follow-up with vascular surgery as outpatient On admission there was a concern of meningoencephalitis, underwent lumbar puncture, CSF studies, clear, colorless, WBC 3,, RBC 0, remained afebrile, mentation improved, Gram stain and cultures so far unremarkable, cryptococcal antigen negative, blood cultures negative, was initially managed with broad-spectrum antibiotic therapy antibiotic therapy therapy, which have been discontinued on discharge. Patient does have viral CSF studies pending on discharge, which should be followed up. Patient was advised to quit smoking we will discharge Patient did have elevated troponins on hospitalization, no acute ST-T wave changes, 6-hour troponin 35.9 , delta of 18.97. No chest pain complaints, discharged with close follow-up with cardiology as outpatient for consideration of stress testing. Discharge aspirin, statin, lisinopril as above Physical Exam Const: COMMON NORMALS: no acute distress and alert ORIENTATION/CONSCIOUSNESS: Yes awake, Yes oriented to person, Yes oriented to place and Yes oriented to time OTHER: Responses are delayed, but has appropriate responses Resp: COMMON NORMALS: normal respiratory effort, No retractions, No use of accessory muscles and clear to auscultation bilaterally AUSCULTATION: clear to auscultation bilaterally Cardio: COMMON NORMALS: regular rate, regular rhythm, S1 normal heart sound present and S2 normal heart sound present RATE: regular rate RHYTHM: regular rhythm HEART SOUNDS: S1 normal heart sound present and S2 normal heart sound present GI: COMMON NORMALS: Normal to inspection, nondistended, normoactive bowel sounds present, Soft to palpation and non-tender PALPATION: Yes Soft to palpation Extremity: COMMON NORMALS: no pedal edema Neuro: SENSORIUM/ORIENTATION: Yes alert, Yes oriented to person, Yes oriented to place and Yes oriented to time CRANIAL NERVES: Yes CN normal except as noted COORDINATION/BALANCE: [id number] test normal SPEECH: speech normal MOTOR EXAM: 5/5 motor strength present throughout COORDINATION: [id number] test normal Urinary Catheter Management^: Bang: Cath Placed During This Visit: yes Reason for Continuing Indwelling Catheter: Acute Urinary Retention or Obstruction Urinary Catheter Date of Insertion: 03/23/21 Urinary Catheter Time of Insertion: 00:03 Discharge Data Data Completed and Pending: Completed Studies During Hospitalization Category Date Time Status CT angio headneck * [id number] Rout ine Cat Scan 03/24/21 06:[address] head wo con* [id number] Urgent Cat Scan 03/22/21 21:11 Completed XR chest 1V jesus ble [id number] Stat Exams 03/22/21 21:11 Completed CV carotid duplex BI* [id number] Routine Ultrasound 03/24/21 06:00 Completed CV. echo complete * [id number] Routine Ultrasound 03/24/21 06:00 Completed Pending at discharge Category Date Time Status Blood Culture Sta t Lab 03/22/21 22:00 Results Herpes Simplex Vi isabel DNA Routine Lab 03/23/21 00:13 Received Respiratory Viral Panel PCR Routine Lab 03/23/21 03:00 Received [place] Enceph. Virus IFA CSF Stat Lab 03/22/21 23:15 Received VDRL on CSF Stat Lab 03/23/21 00:15 Received West Nile Virus A B Panel,CSF Stat Lab 03/22/21 23:15 Received Labs from last 24 hours 03/27/21 03/27/21 03/26/21 11:23 06:29 20:53 Sodium Potassium Chloride Carbon Dioxide Anion Gap BUN Creatinine GFR Calculation Glucose POC Glucose 267 H 154 H 285 H Calculated Osmolal ity Calcium Magnesium 03/26/21 03/26/21 17:54 14:20 Sodium 134 L Potassium 3.2 L Chloride 99 Carbon Dioxide 23 Anion Gap 15.2 BUN 7 Creatinine 0.5 L GFR Calculation 178.2 H Glucose 292 H POC Glucose 269 H Calculated Osmolal ity 287 Calcium 8.2 L Magnesium 1.9 Vitals: Last Vital Signs Temp 98.3 F 03/27/21 11:22 Pulse 76 03/27/21 11:22 Resp 17 03/27/21 11:22 BP 151/87 03/27/21 11:22 Pulse Ox 92 03/27/21 11:22 Discharge Plan Discharge Patient Disposition: Home Condition: Stable Prescriptions: New atorvastatin 40 mg Tablet 40 mg PO BEDTIME 30 Days Qty: 30 RF: 0 clopidogrel 75 mg Tablet 75 mg PO DAILY 17 Days Qty: 17 RF: 0 aspirin 81 mg Tablet,Delayed Release (Dr/Ec) 81 mg PO DAILY 30 Days Qty: 30 RF: 0 amlodipine 10 mg Tablet 10 mg PO DAILY 30 Days Qty: 30 RF: 0 nicotine 21 mg/24 hr Patch 24 Hour 1 patch transdermal DAILY PRN (Reason: nicotine withdrawl) Qty: 28 RF: 0 Lantus Solostar U-100 Insulin 100 unit/mL (3 mL) insulin pen 12 unit SUBCUT Q12H 30 Days Qty: 7.2 RF: 0 Humalog KwikPen Insulin 100 unit/mL insulin pen See Rx Instructions .ROUTE .COMPLEX Qty: 15 RF: 0 (DME) glucometer kit See Rx Instructions .Route .MEDSUPPLY Qty: 1 RF: 0 Prinivil 20 mg tablet 20 mg PO BID 30 Days Qty: 60 RF: 0 metformin 500 mg tablet 500 mg PO BID 30 Days Qty: 60 RF: 0 No Action No Known Home Medications RF: 0 Discharge Orders: Discharge Order (Routine); Ordered 03/27/21 Ordered By: Mikal Benson Other Ambulatory Orders: [place] cardiac event monitor (Routine) Timeframe: 1 Day Facility: [facility] - Location: Cardiac Diagnostic Laboratory Ordered By: Mikal Benson Referrals: TOÑO MANCILLA [Staff Physician] - 03/28/21 (You will have a follow up appointment with Dr. Almaz Cosby on 2020 at 11:00 am. If you have any questions please call them at [phone].) Jeri De La Rosa MD [Physician] - 1 month Hernesto Delgado MD [Physician] - 1 month (carotid artery stenosis ) Joycelyn Esquivel MD [Physician] - 1 month Discharge Diet: Diabetic Discharge Activity: Resume usual activity Patient Instructions: Opioid Safety Activity Restrictions/Additional Instructions: -For your type 2 diabetes mellitus, please check blood sugars 3 times daily before meals -Inject Lantus as prescribed -If blood sugar greater than 500, call primary care -If blood sugar less than 60, drink or juice or eat a hard candy go to emergency room -Inject Humalog, 3 times daily, before meals, based on blood sugar, based on sliding scale, before meals, do not inject insulin if you do not eat Fingerstick Blood Glucose Insulin Units 141-180 mg/dl 4 units/SQ 181-220 mg/dl 6 units/SQ 221-260 mg/dl 8 units/SQ 261-300 mg/dl 10 units/SQ 301-350 mg/dl 12 units/SQ 351-400 mg/dl 14 units/SQ greater than 400 mg/dl 16 units/SQ -Hypoglycemia is associate with increased risk of morbidity and mortality, monitor blood sugars closely -Please stop smoking -For your stroke please take aspirin, statin, Plavix as prescribed -If recurrent strokelike symptoms go to the emergency room -Please follow-up with neurology in 1 month -Please follow-up with cardiothoracic surgery in 1 month -If recurrent strokelike symptoms call 911 Discharge Attestations Time Spent in Discharge Care*: less than 30 min Quality Metrics Clinical Quality Measures During this hospital stay, did patient experience: Stroke Contraindication to Antithrombotic: Antithrombotic prescribed Contraindication to Anticoagulation: Overlap treatment not indicated Contraindication to Statin: Statin prescribed Coding Level of Care Code Acute Chg FW DC note Exam Detailed Diagnoses Encephalopathy acute G93.40 DKA (diabetic ketoacidosis) E11.10 Diabetes mellitus complication detail: without coma Diabetes mellitus type: type 2 Elevated troponin R77.8 Cerebral vascular accident I63.9 Hypertension I10 Diabetes mellitus, type II E11.9
[2021-03-27] MEDS: lisinopril 10 mg Tablet 20 MG PO (15:04)
--- NOTE | 2021-03-27 15:06 | PC.RESP ---
SMOKING CESSATION INFORMATION SENT TO PATIENT.
[2021-03-27 16:14] VITALS: BP 151/87; PULSE 76; RESP 17; TEMP 36.8; O2SAT 92
[2021-03-27 17:43] LABS: St. Louis Enceph.Virus IGG CSF <1:1; St. Louis Enceph.Virus IGM CSF <1:1
[2021-03-27 23:28] LABS: HSV 1 DNA NOT DETECTED; HSV 2 DNA NOT DETECTED; HSV Source csf
[2021-03-29 01:13] LABS: VDRL on CSF NON-REACTIVE
[2021-03-29 16:53] LABS: Adenovirus Not Detected (Not Detected); Human Metapneumovirus Not Detected (Not Detected); Human Parainflu Virus 1 Not Detected (Not Detected); Human Parainflu Virus 2 Not Detected (Not Detected); Human Parainflu Virus 3 Not Detected (Not Detected); Human Rsv A Not Detected (Not Detected); Influenza A Not Detected (Not Detected); Influenza B Not Detected (Not Detected); Rhinovirus/Enterovirus Not Detected (Not Detected)
[2021-03-31 00:23] LABS: West Nile Virus AB (IGG) <1.30 index; West Nile Virus AB (IGM) <0.90 index
== END 2021-03-27 16:15 | disposition home or self-care (01) | DRG 64 ==
LOC: ER 23:47 → ICU 03-23 01:05 → MEDSURG 03-26 14:12
PROVIDERS: Emergency Medicine; Internal Medicine; Admitting Provider Hospitalist; Emergency Provider Nurse Practitioner Family; Visit Provider Family Medicine
DX: I63.9 Cerebral infarction, unspecified (principal); E11.10 Type 2 diabetes mellitus with ketoacidosis without coma; G93.41 Metabolic encephalopathy; I69.954 Hemiplegia and hemiparesis following unspecified cerebrovascular disease affecting left non-dominant side; E78.5 Hyperlipidemia, unspecified; I10 Essential (primary) hypertension; F17.210 Nicotine dependence, cigarettes, uncomplicated; E78.00 Pure hypercholesterolemia, unspecified; Z91.120 Patient's intentional underdosing of medication regimen due to financial hardship; R29.702 NIHSS score 2; I65.22 Occlusion and stenosis of left carotid artery; I25.10 Atherosclerotic heart disease of native coronary artery without angina pectoris; R50.9 Fever, unspecified
CPT/HCPCS: 36415; 36416; 36592; 36600; 51702; 70450; 70496; 70498; 71045; 80048; 80053; 80061; 80202; 80306; 80307; 80500; 81001; 82009; 82140; 82803; 82805; 82962; 83036; 83605; 83735; 84100; 84315; 84439; 84443; 84484; 85025; 85610; 85730; 86140; 86403; 86592; 86653; 86788; 86789; 87040; 87070; 87075; 87205; 87327; 87426; 87449; 87530; 87635; 87804; 89050; 92507; 92523; 92526; 92610; 93005; 93306; 93880; 96365; 96367; 96368; 96372; 96375; 97110; 97161; 97166; 97535; 99291; 99292; A4570; C1751; C9113; J0133; J0696; J0743; J1630; J1650; J1815 ×2; J1940; J2060; J2270; J3370; J3475; J3480; J3490; J7030; J7050; J7799; Q9967

== ENCOUNTER → 2021-06-12 12:03 | Outpatient (BNVA) | payer BC, MEDICAID, SELFPAY | PROVIDERS: PCP Nurse Practitioner; Visit Provider Nurse Practitioner | DX: E11.69 Type 2 diabetes mellitus with other specified complication (principal); Z79.4 Long term (current) use of insulin | CPT/HCPCS: 81000 ==

== ENCOUNTER 2021-06-13 | Outpatient (CLI) | payer BC, MEDICAID, SELFPAY | END 2021-06-13 00:01 | disposition home or self-care (01) | LOC: RADSHAW 11-21 12:45 | PROVIDERS: PCP Nurse Practitioner; Visit Provider Specialist | DX: E11.69 Type 2 diabetes mellitus with other specified complication (principal); Z79.4 Long term (current) use of insulin; I63.9 Cerebral infarction, unspecified | CPT/HCPCS: 80053; 80061; 83036 ==

== ENCOUNTER 2021-06-25 10:18 | Observation (INO) | payer BC, MEDICAID, SELFPAY ==
[2021-06-25] VITALS (12 sets, daily range): BP systolic 147–172; BP diastolic 84–107; PULSE 80–110; RESP 16–18; TEMP 36.5–37.1; O2SAT 92–96; BMI 31.2
--- NOTE | 2021-06-25 10:20 | CTR_ITS ---
PROCEDURE INFORMATION: Exam: CT Head Without Contrast Exam date and time: 06/25/2021 10:20 AM Age: 45 years old Clinical indication: Speech disturbance; Dysphasia; Additional info: Stroke like symptoms TECHNIQUE: Imaging protocol: Computed tomography of the head without contrast. Total images: 203 Radiation optimization: All CT scans at this facility use at least one of these dose optimization techniques: automated exposure control; mA and/or kV adjustment per patient size (includes targeted exams where dose is matched to clinical indication); or iterative reconstruction. Other technique: STROKE PROTOCOL was implemented. COMPARISON: CT head wo con* [id number] 03/22/2021 9:23 PM RADIATION DOSE METRICS: Total DLP (mGy-cm): 859.01 FINDINGS: Brain: Global brain atrophy and chronic white matter ischemic changes are present. Area of encephalomalacia within the right frontal lobe from remote infarct. Chronic lacunar infarction in the left peña radiata. Area of encephalomalacia in the left cerebellar hemisphere felt to represent sequela of remote infarct. Cerebral ventricles: Ventricles are appropriate in size for degree of atrophy. Paranasal sinuses: Visualized sinuses are unremarkable. No fluid levels. Mastoid air cells: Visualized mastoid air cells are well aerated. Vasculature: Atherosclerosis is evident. Bones/joints: Unremarkable. No acute fracture. Soft tissues: Unremarkable. CT/CT head wo con* [id number] IMPRESSION: No acute intracranial pathology detected. ASSESSMENT: ASPECTS ([place] Stroke Program Early CT Score) is 10.
--- NOTE | 2021-06-25 10:25 | XRR_ITS ---
PROCEDURE INFORMATION: Exam: XR Chest Exam date and time: 06/25/2021 10:25 AM Age: 45 years old Clinical indication: Other: Stroke like symptoms TECHNIQUE: Imaging protocol: XR of the chest. Views: 1 view. Total images: 1 COMPARISON: CR XR chest 1V portable [id number] 03/22/2021 9:20 PM FINDINGS: Lungs: Unremarkable. No consolidation. Pleural spaces: Unremarkable. No pleural effusion. No pneumothorax. Heart/Mediastinum: Heart size is stable when compared to the prior exam. Vasculature: Atherosclerosis is evident. Bones/joints: Osseous structures are unchanged from the prior exam. Other findings: X-ray is slightly rotated. XR/XR chest 1V portable [id number] IMPRESSION: No acute cardiopulmonary process.
--- NOTE | 2021-06-25 10:26 | ED_ITS ---
HPI - Neuro Symptoms/Deficit General: Chief Complaint: ER Hold Stated Complaint: STROKE LIKE SYMPTOMS Time Seen by Provider: 06/25/21 10:21 Limitations: other (Speech difficulty) History of Present Illness: Mr Guerrero is a 45-year-old gentleman with complex past medical history hypertension, hyperlipidemia, insulin-dependent diabetes, stroke who presents emergency department due to speech difficulty. Per EMS report patient was observed having sudden onset aphasia while eating breakfast at 8 AM. No associated choking events. Intensity of symptoms is severe with the patient limited to yes or no dysarthric answers. History is limited by this. Patient indicates no other recent changes in health, no history of head trauma. History otherwise limited by current mental state and condition. Onset (ago): hour(s) Time: 08:00 Last Observed Normal: 08:00 Timing confirmed by: other (EMS report from family) Location: speech History of same: Yes Severity: moderate Quality: other Relieving factors: none Exacerbating factors: none Review of Systems General: Reports: ROS unobtainable due to medical condition PFSH ED PFSH: Medical History Diabetes mellitus, type II History of stroke with residual deficit (~2019) Treated at [facility] in [facility] per family, residual left sided weakness Hyperlipidemia Hypertension Obesity (BMI 30-39.9) Surgical History History of placement of ear tubes childhood Family History Mother Cancer colon cancer Other Diabetes Hyperlipidemia Hypertension Stroke Social History Smoking and tobacco status: current every day smoker cigarettes Packs smoked per day: 2 Second hand smoke exposure: No Smoking risk assessment/counseling performed?: Yes Alcohol intake: never Desire information about alcohol rehabilitation?: No Counseling given: No Desire information about substance/drug rehabilitation?: No Counseling given: No Adopted: No Caregiver/support person: Yes Lives independently: No Household members: family and other Details: lives with sister and brother in law Housing: House Marital status: Legally Number of children: 2 service: No Current occupational status: unemployed Pets and animals: Yes Pets & animals: cat(s) History of recent travel: No Current gender identity: Male NIH stroke score NIHSS: Level Of Consciousness - 1a: 0 Level Of Consciousness Questions - 1b: Neither Correct Level Of Consciousness Commands - 1c: Both Correct Best Gaze - 2: Normal Visual Kirby - 3: No Visual Loss Facial Palsy - 4: Minor Paralysis Motor Arm Right - 5: No Drift Motor Arm Left - 5: No Drift Motor Leg Right - 6: No Drift Motor Leg Left - 6: No Drift Limb Ataxia - 7: Absent Sensory - 8: Normal Best Language - 9: Severe Aphasia Dysarthia - 10: Mild/Moderate Dysarthia Extinction And Inattention - 11: 0 Score: Total Score: 6 Physical Exam Const: GENERAL APPEARANCE: cooperative HENMT: COMMON NORMALS: normocephalic and atraumatic HEAD & SCALP: normocephalic and atraumatic THROAT: posterior oropharynx normal Eye: COMMON NORMALS: conjunctivae normal CONJUNCTIVA: Yes conjunctivae normal SCLERA: sclerae normal Neck/C-Spine: COMMON NORMALS: supple GENERAL: Yes trachea midline Resp: COMMON NORMALS: normal respiratory effort EFFORT & INSPECTION: Yes able to speak in complete sentences Cardio: COMMON NORMALS: regular rate and regular rhythm RATE: regular rate RHYTHM: regular rhythm GI: COMMON NORMALS: Soft to palpation PALPATION: Yes Soft to palpation and No Tenderness to palpation present (GI) PERCUSSION: normal to percussion Extremity: GENERAL: Yes normal exam except as noted and No edema Neuro: WALTER COMA SCALE: document GCS findings (6) COMMON NORMALS: moves all extremities Course ED course: - Patient was seen and evaluated by me at bedside - Patient placed on cardiac monitors, IV access obtained - Initial evaluation notable for NIHSS 6 for primarily aphasia related symptoms - Glucose hyperglycemic. Blood pressure acceptable. - CT head without obvious acute hemorrhage. Discussed with telestroke neurologist at [facility]. Patient is certainly higher risk though based on initial history would qualify for TPA. In the interval patient's family arrived. I had extensive discussion regarding risks and benefits of TPA including limitations of timeframe and higher risk that is difficult to estimate given stroke just over 90 days ago. Patient wished to proceed with TPA. However, just prior to administration by nursing staff the family then reported time of onset of any changes being 2 days ago and not 8 AM this morning. They were adamant that they told EMS this however EMS at 8 AM and initially in discussion the patient's family reported 8 AM to my understanding. TPA was not administered given that time of onset was greater than 4.5 hours ago. Initial symptoms were difficulty with balance and getting up as well as episodes of staring off into space and difficulty with speech though not quite like his current state. - Labs notable for no leukocytosis, normal hemoglobin. Metabolic panel without acute electrolyte derangement to explain symptoms, glucose is elevated however anion gap and bicarb are normal. There is no evidence of urinary tract infection. Overall no specific laboratory abnormality to explain symptoms. - In initial discussion with stroke neurologist he did recommend CTA. I updated him regarding events surrounding TPA. Given that patient is outside of stroke window and some of the symptoms may be more consistent with recrudescence type picture, though no obvious cause identified to this point, we will plan to have the stroke neurologist review images but I do not believe that there is indication for [id number] telephone encounter at this time. - Imaging notable for no LVO intracranially. Patient does have moderate stenosis of both ICAs - Upon serial reexamination after treatment the patient was similar without significant improvement - Based on patient history, evaluation, labs, and imaging as interpreted the most likely cause of the patient's condition is stroke though there is not yet radiographic evidence of such - The results of ED evaluation were discussed with the patient. The stroke neurologist from [facility] recommends admission for further risk factor optimization, telemetry, consideration of echocardiogram, repeat labs, and neurology testing, as well as MRI. His note will be included in the chart for admitting service to review. - Admitting service was contacted and Dr Fox with the hospitalist service agreed to admit the patient to observation - Patient was admitted without further deterioration or significant events. Note: Click bubbles or prepopulated kirby in note writing are used for assistance with data collection and billing and are inherently more limited than narrative and other text portions of this note. Please use narrative for additional clinical history and defer to narrative/free test for any case of contradictory information. If information appears in only free text or click bubble it should be considered present or absent as reported. Please contact note automatic typewriter inspector for clarifications of clinical information or contradictory information. MDM is a brief summary, contradictory or erroneous seeming information should be clarified and full note should be reviewed. Vital Signs: Vital signs: Vital Signs Temperature 98.7 F 01/30/22 10:21 Pulse Rate 89 06/25/21 18:24 Respiratory Rate 16 06/25/21 10:21 Blood Pressure 157/84 06/25/21 18:24 Pulse Oximetry 94 06/25/21 18:24 MDM - Neuro Symptoms/Deficit Medical Decision Making 45-year-old gentleman presenting with strokelike symptoms, patient has history of strokes and multiple risk factors. Initially strong report that last known normal was 8 AM. On my assessment patient NIHSS of 6 for primarily aphasia and dysarthria as well as mild facial droop. Contacted [facility] for stroke neurology call and at that time no contraindications for TPA. In the interval patient's family arrived and I had discussion with the patient and family regarding use of TPA including risk and benefit potential. Patient elected to move ahead with TPA however just prior to administration family noted that onset of symptoms was not 8 AM and was in fact 2 days ago. At this point patient has contraindication for TPA and therefore it was not administered. ED evaluation without obvious cause of the patient's symptoms. Therefore, concerning for new stroke. Per neuro stroke consultation recommendations will admit patient for further management and recommendation for neurology service consult, Dr. De La Rosa with the neurology service is back transaction coordinator tomorrow. Medical Records I reviewed the patient's medical records. Lab Data I reviewed the patient's lab results. : 06/25/21 10:40 06/25/21 10:[address] 06/25/21 10:20 IMPRESSION: No acute intracranial pathology detected. ASSESSMENT: ASPECTS (Jaquelin Stroke Program Early CT Score) is 10. Chest X-Ray 06/25/21 10:25 IMPRESSION: No acute cardiopulmonary process. Head/Neck CTA 06/25/21 12:53 IMPRESSION: No large vessel stenosis or occlusion. IMPRESSION: Moderate stenosis at the origin of both internal carotid arteries with an estimated 50% luminal narrowing. COMMENTS: Consistent with the [employer]'s Incidental Findings Committee white paper (J Am Keely Radiol 2015): In patients aged 35 years and older with an incidental thyroid nodule equal to or greater than 1.[address], MRI or extrathyroidal US, further evaluation with dedicated thyroid US is recommended for patients with normal life expectancy and without comorbidities. For smaller nodules without suspicious features, no further evaluation or follow up is recommended. REFERENCES: NASCET CRITERIA. The degree of internal carotid artery stenosis is based on NASCET criteria. Normal is no stenosis. Mild is less than 50% stenosis. Moderate is 50-69% stenosis. Severe is 70% to 99% stenosis. Total occlusion is no detectable patent lumen. Laboratory Results WBC 8.5 10^3/uL (4.0-10.0) 06/25/21 10:40 RBC 5.04 10^6/uL (4.1-5.3) 06/25/21 10:40 Hgb 15.1 g/dL (11.7-16.6) 06/25/21 10:40 Hct 44.7 % (42.0-52.0) 06/25/21 10:40 MCV 88.7 fl (80-94) 06/25/21 10:40 MCH 30.0 pg (28.0-34.0) 06/25/21 10:40 MCHC 33.8 g/dL (30.0-36.0) 06/25/21 10:40 RDW 13.1 % (12.1-15.1) 06/25/21 10:40 Plt Count 283 10^3/cmm (130-400) 06/25/21 10:40 MPV 11.2 fL (7.4-10.4) H 06/25/21 10:40 Neut % (Auto) 75.0 % 06/25/21 10:40 Lymph % (Auto) 18.2 % 06/25/21 10:40 Patrick % (Auto) 4.7 % 06/25/21 10:40 Eos % (Auto) 1.4 % 06/25/21 10:40 Baso % (Auto) 0.5 % 06/25/21 10:40 Neut # (Auto) 6.33 10^3/uL (1.8-7.7) 06/25/21 10:40 Lymph # (Auto) 1.5 10^3/uL (0.8-4.8) 06/25/21 10:40 Patrick # (Auto) 0.4 10^3/uL (0.2-0.9) 06/25/21 10:40 Eos # (Auto) 0.1 10^3/uL (0.0-0.8) 06/25/21 10:40 Baso # (Auto) 0.0 10^3/uL (0.0-0.1) 06/25/21 10:40 Nucleated RBC % (auto) 0 % 06/25/21 10:40 Nucleated RBCs # 0.0 /100WBC 06/25/21 10:40 PT 13.50 SECONDS (12.1-14.9) 06/25/21 10:40 INR 1.00 (0.8-1.2) 06/25/21 10:40 APTT 27.9 SECONDS (23.9-36.7) 06/25/21 10:40 Sodium 139 mmol/L (136-145) 06/25/21 10:40 Potassium 3.6 mmol/L (3.5-5.1) 06/25/21 10:40 Chloride 102 mmol/L (98-107) 06/25/21 10:40 Carbon Dioxide 22 mmol/L (22-29) 06/25/21 10:40 Anion Gap 18.6 (5-19) 06/25/21 10:40 BUN 17 mg/dL (6-20) 06/25/21 10:40 Creatinine 0.6 mg/dL (0.7-1.2) L 06/25/21 10:40 GFR Calculation 144.4 mL/min (90-130) H 06/25/21 10:40 Glucose 379 mg/dL (65-115) H 06/25/21 10:40 POC Glucose 375 mg/dL (70-110) H 06/25/21 10:37 Calculated Osmolality 305 mOsm/kg (285-295) H 06/25/21 10:40 Calcium 9.3 mg/dL (8.5-10.5) 06/25/21 10:40 Total Bilirubin 0.6 mg/dL (0.15-1.2) 06/25/21 10:40 AST 13 U/L (0-40) 06/25/21 10:40 ALT 13 U/L (0-41) 06/25/21 10:40 Alkaline Phosphatase 100 IU/L (40-130) 06/25/21 10:40 Total Protein 6.8 g/dL (6.6-8.7) 06/25/21 10:40 Albumin 4.1 g/dL (3.5-5.2) 06/25/21 10:40 Globulin 2.7 g/dL (1.3-4.6) 06/25/21 10:40 Urine Color Yellow (Yellow) 06/25/21 11:45 Urine Appearance Clear (CLEAR) 06/25/21 11:45 Urine pH 5 (5-7) 06/25/21 11:45 Ur Specific [place] 1.025 (1.005-1.030) 06/25/21 11:45 Urine Protein Neg (Negative) 06/25/21 11:45 Urine Glucose (UA) 4+ (Normal) H 06/25/21 11:45 Urine Ketones 1+ (Negative) H 06/25/21 11:45 Urine Blood Neg (Negative) 06/25/21 11:45 Urine Nitrate Negative (Negative) 06/25/21 11:45 Urine Bilirubin Neg (Negative) 06/25/21 11:45 Urine Urobilinogen 4 mg/dL (Negative) H 06/25/21 11:45 Ur Leukocyte Esterase Negative (Negative) 06/25/21 11:45 Urine Opiates Screen Negative ng/mL (Negative) 06/25/21 11:45 Ur Barbiturates Screen Negative ng/mL (Negative) 06/25/21 11:45 Ur Phencyclidine Scrn Negative ng/mL (Negative) 06/25/21 11:45 Ur Amphetamines Screen Negative ng/mL (Negative) 06/25/21 11:45 U Benzodiazepines Scrn Negative ng/mL (Negative) 06/25/21 11:45 Urine Cocaine Screen Negative ng/mL (Negative) 06/25/21 11:45 U Marijuana (THC) Screen Negative ng/mL (Negative) 06/25/21 11:45 EKG Data EKG 1: I personally reviewed and interpreted this EKG as follows: EKG interpretation date: 06/25/21 EKG interpretation time: 10:30 Interpretation: Twelve-lead EKG shows a regular rhythm at a rate of 92. DC interval 200, QRS duration 113, QTc 420. Normal axis. Interpretation: Sinus rhythm. Interventricular conduction delay. EKG 2: I personally reviewed and interpreted this EKG as follows: EKG interpretation date: 06/25/21 EKG interpretation time: 14:55 Interpretation: Twelve-lead EKG shows a regular rhythm at a rate of 94. DC interval 176, QRS 116, QTc 421. Normal axis. Interpretation: Sinus rhythm. Interventricular conduction delay Critical Care Time Critical Care Time: Critical Care Time: Yes Total Critical Care Time: 38 Attestation: Due to a high probability of clinically significant, possibly life threatening deterioration, the patient required my highest level of attention and preparedness to intervene emergently and I personally spent this critical care time directly and personally managing the patient. This critical care time included obtaining a history; examining the patient; pulse oximetry; ordering and review of laboratory and imaging studies; arranging urgent treatment with development of a management plan; evaluation of patient's response to treatment; frequent reassessment; and, discussions with other providers as applicable. It was exclusive of separately billable procedures. Discharge Plan Discharge Patient Disposition: Placed in Observation Admit Provider: Ferdinand Fox Clinical Impression: Stroke-like symptoms Coding Level of Care Code ED Document Design Specialist for Luisg Fwd Exam Comprehensive
--- NOTE | 2021-06-25 10:27 | ECG_ITS ---
[facility] Test Date: 2021-06-25 Pat Name: Dimitrios Guerrero Department: Room: Gender: Male Lead Business Analyst: : 1975 Requested By: Jones Lyle Order Number: [id number] Reading MD: MARY GRACE DUARTE Measurements Intervals [place] Rate: 92 P: 56 OK: 200 QRS: 34 QRSD: 113 T: 44 QT: 371 QTc: 459 Interpretive Statements SINUS RHYTHM MODERATE INTRAVENTRICULAR CONDUCTION DELAY [110+ ms QRS DURATION] Compared to ECG 03/23/2021 05:15:40 Sinus tachycardia no longer present Ventricular premature complex(es) no longer present T-wave abnormality no longer present Electronically Signed On 06-25-2021 19:16:15 ANESTHETIC ASSISTANT by MARY GRACE DUARTE [id number]
[2021-06-25 10:46] LABS: Basophils % 0.5 %; Eosinophils # 0.1 10^3/uL (0.0-0.8); Eosinophils % 1.4 %; Hematocrit 44.7 % (42.0-52.0); Hemoglobin 15.1 g/dL (11.7-16.6); Lymphocytes # 1.5 10^3/uL (0.8-4.8); Lymphocytes % 18.2 %; Mean Corpuscular HGB Conc 33.8 g/dL (30.0-36.0); Mean Corpuscular Volume 88.7 fl (80-94); Mean Platelet Volume 11.2 fL (7.4-10.4); Monocytes # 0.4 10^3/uL (0.2-0.9); Monocytes % 4.7 %; Neutrophils # 6.33 10^3/uL (1.8-7.7); Nucleated Red Blood Cells % 0 %; Platelet Count 283 10^3/cmm (130-400); Red Blood Count 5.04 10^6/uL (4.1-5.3); Red Cell Distribution Width 13.1 % (12.1-15.1); White Blood Count 8.5 10^3/uL (4.0-10.0)
[2021-06-25 11:00] LABS: Partial Thromboplastin Time 27.9 SECONDS (23.9-36.7)
[2021-06-25 11:03] LABS: Glucose Point of Care 375 mg/dL (70-110)
[2021-06-25 11:17] LABS: Alanine Aminotransferase 13 U/L (0-41); Albumin Level 4.1 g/dL (3.5-5.2); Alkaline Phosphatase 100 IU/L (40-130); Anion Gap 18.6 (5-19); Aspartate Amino Transferase 13 U/L (0-40); Blood Urea Nitrogen 17 mg/dL (6-20); Calcium 9.3 mg/dL (8.5-10.5); Carbon Dioxide 22 mmol/L (22-29); Chloride 102 mmol/L (98-107); Globulin 2.7 g/dL (1.3-4.6); Glomerular Filtration Rate 144.4 mL/min (90-130); Glucose 379 mg/dL (65-115); Osmolality Calculated 305 mOsm/kg (285-295); Potassium 3.6 mmol/L (3.5-5.1); Sodium 139 mmol/L (136-145); Total Bilirubin 0.6 mg/dL (0.15-1.2); Total Protein 6.8 g/dL (6.6-8.7)
[2021-06-25 11:51] LABS: Add Urine Microscopic? NO; Charge for UA Resulting for Rev
[2021-06-25 11:54] LABS: Bilirubin Urine Neg (Negative); Blood Urine Neg (Negative); Glucose Urine UA 4+ (Normal); Ketones Urine 1+ (Negative); Leukocyte Esterase Urine Negative (Negative); Nitrate Urine Negative (Negative); Protein Urine Neg (Negative); Specific Gravity, Urine 1.025 (1.005-1.030); Urine Appearance Clear (CLEAR); Urine Color Yellow (Yellow); Urobilinogen Urine 4 mg/dL (Negative); pH Urine 5 (5-7)
[2021-06-25 12:03] LABS: Amphetamines Screen Urine Negative (Negative); Barbiturates Screen Urine Negative (Negative); Benzodiazepines Screen Urine Negative (Negative); Cocaine Screen Urine Negative (Negative); Opiate Screen Urine Negative (Negative); PCP Screen Urine Negative (Negative); THC Screen Urine Negative (Negative)
--- NOTE | 2021-06-25 12:53 | CTR_ITS ---
PROCEDURE INFORMATION: Exam: CT Angiography Head With Contrast, Arteriography Exam date and time: 06/25/2021 12:53 PM Age: 45 years old Clinical indication: Speech disturbance; Dysphasia; Additional info: Stroke like symptoms TECHNIQUE: Imaging protocol: Computed tomography angiography of the head with contrast. Exam focused on the arteries. 3D rendering (Not supervised by radiologist): MIP and/or 3D reconstructed images were created by the technologist. Radiation optimization: All CT scans at this facility use at least one of these dose optimization techniques: automated exposure control; mA and/or kV adjustment per patient size (includes targeted exams where dose is matched to clinical indication); or iterative reconstruction. Contrast material: OMNI 350; Contrast volume: 95 ml; Contrast route: INTRAVENOUS (IV); COMPARISON: CT angio headneck* [id number] 03/25/2021 5:07 PM RADIATION DOSE METRICS: Total DLP (mGy-cm): 2091.33 FINDINGS: ANTERIOR CIRCULATION: Right internal carotid artery: Diffuse wall calcification of the intracranial segment with no significant stenosis or occlusion. No aneurysm. Right middle cerebral artery: Unremarkable. No occlusion or significant stenosis. No aneurysm. Right anterior cerebral artery: Unremarkable. No occlusion or significant stenosis. No aneurysm. Left internal carotid artery: Diffuse wall calcification of the intracranial segment with no significant stenosis or occlusion. No aneurysm. Left middle cerebral artery: Unremarkable. No occlusion or significant stenosis. No aneurysm. Left anterior cerebral artery: Unremarkable. No occlusion or significant stenosis. No aneurysm. POSTERIOR CIRCULATION: Right vertebral artery: Unremarkable. No occlusion or significant stenosis. No aneurysm. Left vertebral artery: Unremarkable. No occlusion or significant stenosis. No aneurysm. Basilar artery: Unremarkable. No occlusion or significant stenosis. No aneurysm. Right posterior cerebral artery: Unremarkable. No occlusion or significant stenosis. No aneurysm. Left posterior cerebral artery: Unremarkable. No occlusion or significant stenosis. No aneurysm. Brain: Focal encephalomalacia from old infarcts within the left cerebellum and right frontal lobe. Punctate old lacunar infarct in the brenna. Cerebral ventricles: No ventriculomegaly. Bones/joints: Unremarkable. No acute fracture. Soft tissues: Unremarkable. PROCEDURE INFORMATION: Exam: CT Angiography Neck With Contrast Exam date and time: 06/25/2021 12:53 PM Age: 45 years old Clinical indication: Speech disturbance; Dysphasia; Additional info: Stroke like symptoms TECHNIQUE: Imaging protocol: Computed tomography angiography of the neck with contrast. 3D rendering (Not supervised by radiologist): MIP and/or 3D reconstructed images were created by the technologist. Radiation optimization: All CT scans at this facility use at least one of these dose optimization techniques: automated exposure control; mA and/or kV adjustment per patient size (includes targeted exams where dose is matched to clinical indication); or iterative reconstruction. Contrast material: OMNI 350; Contrast volume: 95 ml; Contrast route: INTRAVENOUS (IV); COMPARISON: CT angio headneck* [id number] 03/25/2021 5:07 PM RADIATION DOSE METRICS: Total DLP (mGy-cm): 2091.33 FINDINGS: Right common carotid artery: No stenosis. No dissection or occlusion. Right internal carotid artery: Moderate stenosis at the origin of the right internal carotid artery with an estimated 50% luminal narrowing. No dissection or occlusion. Right external carotid artery: No occlusion or stenosis of the origin. Left common carotid artery: Mild stenosis at the carotid bulb with less than 50% luminal narrowing. No dissection or occlusion. Left internal carotid artery: Moderate stenosis at the origin of the left internal carotid artery with an estimated 50% luminal narrowing. No dissection or occlusion. Left external carotid artery: No occlusion or stenosis of the origin. Right vertebral artery: No stenosis. No dissection or occlusion. Left vertebral artery: No stenosis. No dissection or occlusion. Thyroid: 7 mm nodule noted in the left thyroid lobe series 3, image 26. Soft tissues: Normal. No significant soft tissue swelling. Bones/joints: No acute fracture. CT/CT angio [facility]* [id number] IMPRESSION: No large vessel stenosis or occlusion. IMPRESSION: Moderate stenosis at the origin of both internal carotid arteries with an estimated 50% luminal narrowing. COMMENTS: Consistent with the [employer]'s Incidental Findings Committee white paper (J Am Keely Radiol 2015): In patients aged 35 years and older with an incidental thyroid nodule equal to or greater than 1.[address], MRI or extrathyroidal US, further evaluation with dedicated thyroid US is recommended for patients with normal life expectancy and without comorbidities. For smaller nodules without suspicious features, no further evaluation or follow up is recommended. REFERENCES: NASCET CRITERIA. The degree of internal carotid artery stenosis is based on NASCET criteria. Normal is no stenosis. Mild is less than 50% stenosis. Moderate is 50-69% stenosis. Severe is 70% to 99% stenosis. Total occlusion is no detectable patent lumen.
[2021-06-25] MEDS: sodium chloride 0.9% 1,000 ML 999 ML IV (13:20)
[2021-06-25] MEDS: iohexol 350 mg/mL 100 mL Btl IV (13:48)
--- NOTE | 2021-06-25 18:35 | PM.HP ---
Providers/Chief Complaint Admitting Physician: Ferdinadn Fox MD Primary Care Provider: Mehdi Burks, GISELLE-Kira Chief Complaint: STROKE LIKE SYMPTOMS History of Present Illness Dimitrios Guerrero is a 45 year old male who has history of multiple CVA in the past, has history of hypertension diabetes dyslipidemia has not been taking medications because of inability to afford, has mild left-sided residual weakness from previous CVA, he was admitted in March last year with chief complaint of altered mental status and a fall, he was managed for DKA as well CT head was consistent with subacute infarct right frontal and temporal region chronic posterior frontal and left cerebellar infarcts, atherosclerotic carotid disease 70% stenosis in left internal carotid, he was also treated for possible meningitis lumbar puncture did not show any signs of infection. However of any follow-up with senior software development engineer Dr. Esquivel Holter monitoring reading was not available. Echo 65% ejection fraction grade 1 diastolic dysfunction. He was evaluated by Dr. Delgado on 05/05/2021 he was encouraged to stop smoking and take his medications, Dr. De La Rosa recommended repeating CTA head and neck to make sure stenosis was not getting worse. NIH score of six, hospitalist team was requested admit the patient and do MRI in the morning, case represented to neurology team at [place] [facility] stating that on Saturday he was not able to get up from his chair, when he went back to his car which she was not able to talk at all, previous Holter monitoring reading did not show any A. fib, he still smoking a few cigarettes a day and has been compliant with his medications Review of Systems General: Reports: ROS unobtainable due to medical condition (Expressive aphasia) Medications/Allergies Home Medications Medication Instructions Recorded Confirmed Last Taken Type glucometer kit #1 ea 03/27/21 06/25/21 Unknown Rx aspirin 81 mg tablet,delayed 81 mg PO DAILY 05/05/21 06/25/21 06/24/21 History release atorvastatin 80 mg tablet 80 mg PO DAILY #30 tab 05/22/21 06/25/21 06/24/21 Rx clopidogrel 75 mg tablet 75 mg PO DAILY #30 tab 05/22/21 06/25/21 06/24/21 Rx lisinopril 20 mg tablet (Prinivil) 20 mg PO BID #60 tab 05/22/21 06/25/21 06/24/21 Rx metformin 500 mg tablet 500 mg PO BID #60 tab 05/22/21 06/25/21 06/24/21 Rx amlodipine 10 mg tablet 10 mg PO DAILY #30 tab 06/12/21 06/25/21 06/24/21 Rx blood sugar diagnostic (OneTouch #100 ea 06/12/21 06/25/21 Unknown Rx Ultra Test) insulin glargine 100 unit/mL (3 50 unit (0.5 mL) SUBCUT DAILY #15 06/12/21 06/25/21 06/24/21 Rx mL) subcutaneous pen (Lantus ml Solostar U-100 Insulin) pen needle, diabetic 33 gauge x #100 ea 06/12/21 06/25/21 Unknown Rx insulin aspart U-100 100 unit/mL See Rx Instructions SUBCUT TID #15 06/14/21 06/25/21 Unknown Rx (3 mL) subcutaneous pen (Novolog ml Flexpen U-100 Insulin aspart) dulaglutide 0.75 mg/0.5 mL 0.75 mg SUBCUT .weekly 06/25/21 06/25/21 Unknown History subcutaneous pen injector (Trulicity) Allergies Allergy/AdvReac Type Severity Reaction Status Date / Time No Known Allergies Allergy Verified 05/22/21 10:11 PFSH Acute PFSH: Medical History Diabetes mellitus, type II History of stroke with residual deficit (~2018) Treated at [facility] in [facility] per family, residual left sided weakness Hyperlipidemia Hypertension Obesity (BMI 30-39.9) Surgical History History of placement of ear tubes childhood Family History Mother Cancer colon cancer Other Diabetes Hyperlipidemia Hypertension Stroke Social History Smoking and tobacco status: current every day smoker cigarettes Packs smoked per day: 2 Second hand smoke exposure: No Smoking risk assessment/counseling performed?: Yes Alcohol intake: never Desire information about alcohol rehabilitation?: No Counseling given: No Desire information about substance/drug rehabilitation?: No Counseling given: No Adopted: No Caregiver/support person: Yes Lives independently: No Household members: family and other Details: lives with sister and brother in law Housing: House Marital status: Legally Number of children: 2 service: No Current occupational status: unemployed Pets and animals: Yes Pets & animals: cat(s) History of recent travel: No Current gender identity: Male Vitals/I&O/Wt Last Vital Signs Temp 98.7 F 06/25/21 10:21 Pulse 89 06/25/21 18:24 Resp 16 06/25/21 10:21 BP 157/84 06/25/21 18:24 Pulse Ox 94 06/25/21 18:24 06/25/21 06/25/21 06/25/21 06:59 14:59 22:59 Intake Total 1000 / 1000 Balance 1000 / 1000 Weight last 48 hrs Weight 85.185 kg Physical Exam Narrative: EXAM NARRATIVE: Patient is laying supine Saturating well on room air Able to follow commands Has expressive aphasia Mild facial droop Has good bilateral strength of upper and lower extremities No pronator drift NIH score was 6 Gait was not tested S1, S2 Saturating well on room air No audible stridor or wheezing Word finding difficulty Abdomen soft Data : 06/25/21 10:40 06/25/21 10:40 A&P Assessment and plan (1) Acute CVA (cerebrovascular accident): Status: Acute (2) Nicotine dependence: Status: Chronic Qualifiers: Nicotine product type: unspecified Substance use status: uncomplicated Qualified Code(s): F17.200 - Nicotine dependence, unspecified, uncomplicated (3) Hyperlipidemia: Status: Chronic Qualifiers: Hyperlipidemia type: mixed hyperlipidemia Qualified Code(s): E78.2 - Mixed hyperlipidemia (4) Diabetes mellitus, type II: Status: Chronic Qualifiers: Diabetes mellitus intermission coordinator insulin use: with [facility] use Diabetes mellitus complication status: with other specified complication Qualified Code(s): E11.69 - Type 2 diabetes mellitus with other specified complication; Z79.4 - intermodal customer service (current) use of insulin (5) Hypertension: Status: Chronic Qualifiers: Hypertension type: unspecified Qualified Code(s): I10 - Essential (primary) hypertension Plan Acute CVA Expressive aphasia NIH 6 We will do MRI in the morning CTA head and neck showed 50% stenosis of carotid arteries Patient has hyperglycemia Check lipid profile hemoglobin A1c Speech eval PT/OT DNR/DNI We will keep him n.p.o. until speech eval Attestations Medical Necessity Statement*: Less than two midnights anticipated Coding Level of Care Code Acute Dev Manager for Chg Fwd Diagnoses Acute CVA (cerebrovascular accident) I63.9 Nicotine dependence F17.200 Nicotine product type: unspecified Substance use status: uncomplicated Hyperlipidemia E78.2 Hyperlipidemia type: mixed hyperlipidemia Diabetes mellitus, type II E11.69; Z79.4 Diabetes mellitus intermission coordinator insulin use: with intermission coordinator use Diabetes mellitus complication status: with other specified complication Hypertension I10 Hypertension type: unspecified
[2021-06-25 21:14] LABS: Glucose Point of Care 212 mg/dL (70-110)
[2021-06-25] MEDS: insulin lispro 100 unit/1 mL 10 UNIT SUBCUT (21:55)
[2021-06-25 21:56] LABS: Glucose Point of Care 208 mg/dL (70-110)
[2021-06-25] MEDS: enoxaparin 40 mg/0.4 mL Syringe SUBCUT (21:57)
[2021-06-25] MEDS: sodium chloride 0.9% 500 ML IV (21:58)
[2021-06-26] VITALS (10 sets, daily range): BP systolic 148–173; BP diastolic 84–95; PULSE 82–100; RESP 17–20; TEMP 36.7–37; O2SAT 94–96
[2021-06-26 04:51] LABS: Basophils % 0.3 %; Eosinophils # 0.1 10^3/uL (0.0-0.8); Eosinophils % 1.1 %; Hematocrit 44.9 % (42.0-52.0); Hemoglobin 15.3 g/dL (11.7-16.6); Lymphocytes % 17.7 %; Mean Corpuscular HGB Conc 34.1 g/dL (30.0-36.0); Mean Corpuscular Hemoglobin 29.9 pg (28.0-34.0); Mean Corpuscular Volume 87.7 fl (80-94); Mean Platelet Volume 11.2 fL (7.4-10.4); Monocytes # 0.7 10^3/uL (0.2-0.9); Monocytes % 6.1 %; Neutrophils # 8.51 10^3/uL (1.8-7.7); Neutrophils % 74.5 %; Nucleated Red Blood Cells % 0 %; Platelet Count 282 10^3/cmm (130-400); Red Blood Count 5.12 10^6/uL (4.1-5.3); Red Cell Distribution Width 12.8 % (12.1-15.1); White Blood Count 11.4 10^3/uL (4.0-10.0)
[2021-06-26 05:16] LABS: Anion Gap 18.3 (5-19); Blood Urea Nitrogen 9 mg/dL (6-20); Calcium 9.1 mg/dL (8.5-10.5); Carbon Dioxide 19 mmol/L (22-29); Chloride 106 mmol/L (98-107); Glomerular Filtration Rate 230.6 mL/min (90-130); Glucose 175 mg/dL (65-115); Osmolality Calculated 293 mOsm/kg (285-295); Potassium 3.3 mmol/L (3.5-5.1); Sodium 140 mmol/L (136-145)
[2021-06-26 06:45] LABS: Glucose Point of Care 234 mg/dL (70-110)
[2021-06-26] MEDS: lisinopril 20 mg Tablet PO ×2 (10:07→18:41)
[2021-06-26] MEDS: amlodipine 10 mg Tablet PO (10:07)
[2021-06-26] MEDS: clopidogrel 75 mg Tablet PO (10:07)
[2021-06-26] MEDS: insulin glargine 100 units/1 mL 30 UNIT SUBCUT (10:07)
[2021-06-26] MEDS: atorvastatin 40 mg Tablet 80 MG PO (10:07)
[2021-06-26] MEDS: aspirin 81 mg EC Tablet PO (10:08)
[2021-06-26] MEDS: insulin lispro 100 unit/1 mL SUBCUT ×2 (10:08→13:12)
--- NOTE | 2021-06-26 10:30 | MR_ITS ---
WS: [id number] MRI BRAIN WITHOUT CONTRAST HISTORY: cva, expressive aphasia COMPARISON: 06/25/2021 TECHNIQUE: Diffusion imaging, multiplanar T1, T2 and FLAIR imaging obtained. Acute diffusion-weighted abnormality consistent with an infarct centered in the LEFT peña radiata e xtending into the lentiform nucleus. No additional acute diffusion-weighted abnormalities. There is a remote area of encephalomalacia and prior infarction involving a moderate amount of the RIGHT fronta l lobe. Prior infarct LEFT cerebellum. There is extensive chronic T2 and FLAIR signal hyperintensity surrounding the ventricles. No acute hemorrhage. Mild cerebral and cerebellar atrophy. Mild prominence of ventricular system due to the volume loss. No inferior displacement of cerebellar tonsils. The sella turcica and pituitary gland are unremarkabl e. Dural venous sinuses and [place] demonstrate no abnormality on this unenhanced studies. Paranasal sinuses: Clear. Mastoid air cells: Normal. Calvarium and scalp: Intact. MR/MR head wo con* [id number] IMPRESSION: 1. Moderate-sized acute infarct in the LEFT peña radiata extending into the lentiform nucleus. 2. Moderate size remote infarct with encephalomalacia in the RIGHT frontal lob e and a smaller remote infarct in the LEFT cerebellum. 3. Additional chronic small vessel ischemic changes in the periventricular whi te matter.
[2021-06-26 12:19] LABS: Glucose Point of Care 197 mg/dL (70-110)
--- NOTE | 2021-06-26 13:12 | P.PN_ITS ---
Subjective Subjective: Interval history: This morning patient had a big bowel movement, he still has expressive aphasia, able to walk without assistance, requested PT and speech eval, pending MRI Vitals/I&O/Wt Last Vital Signs Temp 98.3 F 06/26/21 12:00 Pulse 100 06/26/21 12:00 Resp 18 06/26/21 12:00 BP 156/94 06/26/21 12:00 Pulse Ox 94 06/26/21 12:00 06/25/21 06/26/21 06/26/21 22:59 06:59 14:59 Intake Total 1000 / 1000 500 / 1500 Output Total 300 / 300 Balance 1000 / 1000 200 / 1200 Weight last 48 hrs Weight 85.185 kg Physical Exam Narrative: EXAM NARRATIVE: No new neurological deficits Patient has expressive aphasia Able to comprehend verbal commands Has good strength of upper and lower extremity Looks euvolemic S1, S2 Hypertensive Abdomen soft Nonlabored breathing Saturating well on room air Data : 06/26/21 04:20 06/26/21 04:20 A&P Assessment and plan (1) Acute CVA (cerebrovascular accident): Status: Acute (2) Expressive aphasia: Status: Acute Plan Acute CVA Expressive aphasia MRI pending today Continue aspirin Plavix and atorvastatin Permissive hypertension Patient is still smoking a few cigarettes a day 50% stenosis of carotid noted PT and speech evaluation today Patient most likely will be discharged home after MRI results Attestations Medical Necessity Statement*: Discharge later today versus tomorrow Time Spent in Patient Care: 15mins Coding Level of Care Code Acute Security Consultant for Olga Stewart Diagnoses Acute CVA (cerebrovascular accident) I63.9 Expressive aphasia R47.01
--- NOTE | 2021-06-26 15:30 | PC.NURSE ---
patient taken for MRI
[2021-06-26 17:24] LABS: Glucose Point of Care 127 mg/dL (70-110)
[2021-06-26 21:00] LABS: Glucose Point of Care 211 mg/dL (70-110)
[2021-06-26] MEDS: enoxaparin 40 mg/0.4 mL Syringe SUBCUT (21:07)
[2021-06-27] VITALS: BP 136/78; PULSE 90; RESP 18; O2SAT 93
[2021-06-27 04:00] VITALS: BP 132/72; PULSE 84; RESP 17; TEMP 36.6; O2SAT 91
[2021-06-27 06:36] LABS: Glucose Point of Care 108 mg/dL (70-110)
[2021-06-27 07:22] VITALS: BP 135/76; PULSE 76; RESP 18; TEMP 36.7; O2SAT 94
[2021-06-27 08:49] VITALS: PULSE 92; RESP 17; O2SAT 92
--- NOTE | 2021-06-27 09:27 | P.DS_ITS ---
Discharge Providers Date of Admission: 06/25/21 16:04 Date of Discharge: June 27, 2021 Attending Provider at Admission: Ferdinand Fox MD Attending Provider at Discharge: Ferdinand Fox MD Primary Care Provider: DEONNA Lenz Diagnoses at Discharge Discharge Diagnosis (1) Acute CVA (cerebrovascular accident): Status: Acute (2) Expressive aphasia: Status: Acute Reason for Visit Reason for Visit: STROKE LIKE SYMPTOMS Hospital Course Hospital Course My admitting note Dimitrios Guerrero is a 45 year old male who has history of multiple CVA in the past, has history of hypertension diabetes dyslipidemia (not been able to afford medication in the past), has mild left-sided residual weakness from previous CVA, he was admitted in March last year with chief complaint of altered mental status and a fall, he was managed for DKA as well CT head was consistent with subacute infarct right frontal and temporal region chronic posterior frontal and left cerebellar infarcts, atherosclerotic carotid disease 70% stenosis in left internal carotid, he was also treated for possible meningitis lumbar puncture did not show any signs of infection.? However of any follow-up with english faculty member Dr. Esquivel Holter monitoring reading was not available.? Echo 65% ejection fraction grade 1 diastolic dysfunction.? He was evaluated by Dr. Delgado on 05/05/2021 he was encouraged to stop smoking and take his medications, Dr. De La Rosa recommended repeating CTA head and neck to make sure stenosis was not getting worse. NIH score of six, hospitalist team was requested admit the patient and do MRI in the morning, case represented to neurology team at [facility] is stating that on Saturday he was not able to get up from his chair, when he was assisted to rest in his couch he was not able to speak at all, previous H olter monitoring reading did not show any A. fib, he still smoking a few cigarettes a day and has been compliant with his medications Hospital course Patient was admitted for management evaluation of expressive aphasia. PT cleared him to be discharged home, speech therapy recommended mechanical soft diet, MRI head showed acute infarct left peña radiator extending into lentiform nucleus with other remote changes. Patient was given prescription for speech therapy at [place]. He remained in sinus rhythm, telemetry only showed sinus rhythm no signs of A. fib. No signs of clot on CTA head and neck, CTA head and neck revealed 50% stenosis of carotids. No clots or embolic phenomena noted. Hemoglobin A1c 9.4, LDL 42. Drug screen negative. Patient was discharged on 06/27 with outpatient follow-up appointments with Dr. Delgado and Dr. De La Rosa. Sister reported that previous Holter monitoring did not reveal A. fib and he remained in sinus rhythm during his hospitalization. At the time of discharge I am not adding another Holter monitoring for Mr. Chaudhry. He will continue dual antiplatelet therapy along atorvastatin. Smoking cessation counseling. Insulin for type 2 diabetes. Physical Exam Narrative: EXAM NARRATIVE: No new neurological deficits Patient has expressive aphasia Able to comprehend verbal commands Has good strength of upper and lower extremities Looks euvolemic S1, S2 Hypertensive Abdomen soft Nonlabored breathing Saturating well on room air Discharge Data Studies Completed and Pending Completed Studies During Hospitalization Category Date Time Status CT head wo con* [id number] Urgent Cat Scan 06/25/21 10:20 Completed CTA head neck [CT angio headneck* [id number]/[id number]] Urgent Cat Scan 06/25/21 12:53 Completed CXRP [XR chest 1V portable [id number]] Stat Exams 06/25/21 10:25 Completed MR head wo con* [id number] Routine MRI 06/26/21 10:30 Completed Radiology Impressions Head CT 06/25/21 10:20 IMPRESSION: No acute intracranial pathology detected. ASSESSMENT: ASPECTS (Jaquelin Stroke Program Early CT Score) is 10. Chest X-Ray 06/25/21 10:25 IMPRESSION: No acute cardiopulmonary process. Head/Neck CTA 06/25/21 12:53 IMPRESSION: No large vessel stenosis or occlusion. IMPRESSION: Moderate stenosis at the origin of both internal carotid arteries with an estimated 50% luminal narrowing. COMMENTS: Consistent with the [employer]'s Incidental Findings Committee white paper (J Am Keely Radiol 2015): In patients aged 35 years and older with an incidental thyroid nodule equal to or greater than 1.[address], MRI or extrathyroidal US, further evaluation with dedicated thyroid US is recommended for patients with normal life expectancy and without comorbidities. For smaller nodules without suspicious features, no further evaluation or follow up is recommended. REFERENCES: NASCET CRITERIA. The degree of internal carotid artery stenosis is based on NASCET criteria. Normal is no stenosis. Mild is less than 50% stenosis. Moderate is 50-69% stenosis. Severe is 70% to 99% stenosis. Total occlusion is no detectable patent lumen. Head MRI 06/26/21 10:30 IMPRESSION: 1. Moderate-sized acute infarct in the LEFT peña radiata extending into the lentiform nucleus. 2. Moderate size remote infarct with encephalomalacia in the RIGHT frontal lobe and a smaller remote infarct in the LEFT cerebellum. 3. Additional chronic small vessel ischemic changes in the periventricular white matter. Laboratory Results WBC 11.4 10^3/uL (4.0-10.0) H 06/26/21 04:20 RBC 5.12 10^6/uL (4.1-5.3) 06/26/21 04:20 Hgb 15.3 g/dL (11.7-16.6) 06/26/21 04:20 Hct 44.9 % (42.0-52.0) 06/26/21 04:20 MCV 87.7 fl (80-94) 06/26/21 04:20 MCH 29.9 pg (28.0-34.0) 06/26/21 04:20 MCHC 34.1 g/dL (30.0-36.0) 06/26/21 04:20 RDW 12.8 % (12.1-15.1) 06/26/21 04:20 Plt Count 282 10^3/cmm (130-400) 06/26/21 04:20 MPV 11.2 fL (7.4-10.4) H 06/26/21 04:20 Neut % (Auto) 74.5 % 06/26/21 04:20 Lymph % (Auto) 17.7 % 06/26/21 04:20 Summers % (Auto) 6.1 % 06/26/21 04:20 Eos % (Auto) 1.1 % 06/26/21 04:20 Baso % (Auto) 0.3 % 06/26/21 04:20 Neut # (Auto) 8.51 10^3/uL (1.8-7.7) H 06/26/21 04:20 Lymph # (Auto) 2.0 10^3/uL (0.8-4.8) 06/26/21 04:20 Summers # (Auto) 0.7 10^3/uL (0.2-0.9) 06/26/21 04:20 Eos # (Auto) 0.1 10^3/uL (0.0-0.8) 06/26/21 04:20 Baso # (Auto) 0.0 10^3/uL (0.0-0.1) 06/26/21 04:20 Nucleated RBC % (auto) 0 % 06/26/21 04:20 Nucleated RBCs # 0.0 /100WBC 06/26/21 04:20 PT 13.50 SECONDS (12.1-14.9) 06/25/21 10:40 INR 1.00 (0.8-1.2) 06/25/21 10:40 APTT 27.9 SECONDS (23.9-36.7) 06/25/21 10:40 Sodium 140 mmol/L (136-145) 06/26/21 04:20 Potassium 3.3 mmol/L (3.5-5.1) L 06/26/21 04:20 Chloride 106 mmol/L (98-107) 06/26/21 04:20 Carbon Dioxide 19 mmol/L (22-29) L 06/26/21 04:20 Anion Gap 18.3 (5-19) 06/26/21 04:20 BUN 9 mg/dL (6-20) 06/26/21 04:20 Creatinine 0.4 mg/dL (0.7-1.2) L 06/26/21 04:20 GFR Calculation 230.6 mL/min (90-130) H 06/26/21 04:20 Glucose 175 mg/dL (65-115) H 06/26/21 04:20 POC Glucose 108 mg/dL (70-110) 06/27/21 06:28 Calculated Osmolality 293 mOsm/kg (285-295) 06/26/21 04:20 Calcium 9.1 mg/dL (8.5-10.5) 06/26/21 04:20 Total Bilirubin 0.6 mg/dL (0.15-1.2) 06/25/21 10:40 AST 13 U/L (0-40) 06/25/21 10:40 ALT 13 U/L (0-41) 06/25/21 10:40 Alkaline Phosphatase 100 IU/L (40-130) 06/25/21 10:40 Total Protein 6.8 g/dL (6.6-8.7) 06/25/21 10:40 Albumin 4.1 g/dL (3.5-5.2) 06/25/21 10:40 Globulin 2.7 g/dL (1.3-4.6) 06/25/21 10:40 Urine Color Yellow (Yellow) 06/25/21 11:45 Urine Appearance Clear (CLEAR) 06/25/21 11:45 Urine pH 5 (5-7) 06/25/21 11:45 Ur Specific Mccarley 1.025 (1.005-1.030) 06/25/21 11:45 Urine Protein Neg (Negative) 06/25/21 11:45 Urine Glucose (UA) 4+ (Normal) H 06/25/21 11:45 Urine Ketones 1+ (Negative) H 06/25/21 11:45 Urine Blood Neg (Negative) 06/25/21 11:45 Urine Nitrate Negative (Negative) 06/25/21 11:45 Urine Bilirubin Neg (Negative) 06/25/21 11:45 Urine Urobilinogen 4 mg/dL (Negative) H 06/25/21 11:45 Ur Leukocyte Esterase Negative (Negative) 06/25/21 11:45 Urine Opiates Screen Negative ng/mL (Negative) 06/25/21 11:45 Ur Barbiturates Screen Negative ng/mL (Negative) 06/25/21 11:45 Ur Phencyclidine Scrn Negative ng/mL (Negative) 06/25/21 11:45 Ur Amphetamines Screen Negative ng/mL (Negative) 06/25/21 11:45 U Benzodiazepines Scrn Negative ng/mL (Negative) 06/25/21 11:45 Urine Cocaine Screen Negative ng/mL (Negative) 06/25/21 11:45 U Marijuana (THC) Screen Negative ng/mL (Negative) 06/25/21 11:45 Vitals Last Vital Signs Temp 98.1 F 06/27/21 07:22 Pulse 92 06/27/21 08:49 Resp 17 06/27/21 08:49 BP 135/76 06/27/21 07:22 Pulse Ox 92 06/27/21 08:49 Discharge Plan Discharge Patient Disposition: Home Condition: Stable Prescriptions: Continued Lantus Solostar U-100 Insulin 100 unit/mL (3 mL) insulin pen 50 unit SUBCUT DAILY Qty: 15 0RF amlodipine 10 mg tablet 10 mg PO DAILY Qty: 30 3RF (DME) OneTouch Ultra Test Strip See Rx Instructions .Route Qty: 100 5RF Rx Instructions: check 3 times day (DME) pen needle, diabetic 33 gauge x 5/32 needle See Rx Instructions .ROUTE .MEDSUPPLY Qty: 100 5RF Rx Instructions: 4 times day lisinopril [Prinivil] 20 mg tablet 20 mg PO BID Qty: 60 3RF metformin 500 mg tablet 500 mg PO BID Qty: 60 3RF insulin aspart U-100 [Novolog Flexpen U-100 Insulin] 100 unit/mL (3 mL) insulin pen See Rx Instructions SUBCUT TID Qty: 15 2RF Rx Instructions: 3-24U meals SQ;10-129=3U 130-150=6U 151-200=9U 201-250=12U 251-300=15U 301- 350=18U 351-400=21U >400=24U SUBCUT three times daily; Trulicity 0.75 mg/0.5 mL pen injector 0.75 mg SUBCUT .weekly 0RF atorvastatin 80 mg tablet 80 mg PO DAILY Qty: 30 13RF clopidogrel 75 mg tablet 75 mg PO DAILY Qty: 30 11RF aspirin 81 mg tablet,delayed release (DR/EC) 81 mg PO DAILY Qty: 30 10RF (DME) glucometer kit See Rx Instructions .Route .MEDSUPPLY Qty: 1 0RF Rx Instructions: Glucometer testing kit Check blood sugars 3 times daily, before meals Lancets #100 Strips #100 Discharge Orders: Discharge Order (Routine); Ordered 06/27/21 Ordered By: Ferdinand Fox Other Ambulatory Orders: Speech Language Pathology Eval and Treat Outpatient (Order) Timeframe: 3 Months Facility: [facility] - Location: Speech Therapy [place] Ordered By: Ferdinand Fox Referrals: Jeri De La Rosa MD [Physician] - 07/18/21 11:45 am Mehdi Burks FNP-C [Primary Care Provider] - 07/03/21 9:20 am (Outpatient ST was ordered and will be arranged at the [facility]. The [facility] [place] will call you with appointment time. If you do not recieve a call, please call them at [phone]. [phone].) Hernesto Delgado MD [Physician] - 07/14/21 8:45 am Discharge Diet: Soft Mechanical Discharge Activity: Increase activity as tolerated Patient Instructions: Aphasia (GEN), Stroke (GEN), Opioid Safety, Stroke Stop light Discharge Attestations Time Spent in Discharge Care*: less than 30 min Quality Metrics Clinical Quality Measures [ Cerebrovascular Accident { Contraindication to Antithrombotic: Medical contraindication; Contraindication to Anticoagulation: Medical contraindication; Contraindication to Statin: None; Statiin prescribed; Contraindication to antithrombotic day 2: None; Antithrombotic given day 2; Contraindication to tPA: Treatment not indicated; Rehab services assessed: Speech therapy;}] Coding Level of Care Code Acute [facility] note Diagnoses Acute CVA (cerebrovascular accident) I63.9 Expressive aphasia R47.01
[2021-06-27] MEDS: atorvastatin 40 mg Tablet 80 MG PO (09:47)
[2021-06-27] MEDS: lisinopril 20 mg Tablet PO (09:47)
[2021-06-27] MEDS: insulin glargine 100 units/1 mL 30 UNIT SUBCUT (09:47)
[2021-06-27] MEDS: amlodipine 10 mg Tablet PO (09:47)
[2021-06-27] MEDS: aspirin 81 mg EC Tablet PO (09:47)
[2021-06-27] MEDS: clopidogrel 75 mg Tablet PO (09:47)
--- NOTE | 2021-06-27 11:25 | PC.NURSE ---
patient and family given discharge instructions. family verbalized understanding of instructions. patient taken to private vehicle via wheelchair by curriculum writer.
[2021-06-27 11:26] VITALS: PULSE 92; RESP 17; O2SAT 92
== END 2021-06-27 11:27 | disposition home or self-care (01) ==
LOC: ER 16:04 → ER IP 16:55 → MEDSURG 06-26 09:48
PROVIDERS: Admitting Provider Internal Medicine; Emergency Provider Emergency Medicine; PCP Nurse Practitioner; Visit Provider Internal Medicine
DX: I63.9 Cerebral infarction, unspecified (principal); R47.01 Aphasia; I10 Essential (primary) hypertension; R29.706 NIHSS score 6; E11.9 Type 2 diabetes mellitus without complications; Z79.4 Long term (current) use of insulin; Z91.81 History of falling; F17.210 Nicotine dependence, cigarettes, uncomplicated; Z79.84 Long term (current) use of oral hypoglycemic drugs; Z79.82 Long term (current) use of aspirin; E78.2 Mixed hyperlipidemia
CPT/HCPCS: 36415; 36416; 70450; 70496; 70498; 70551; 71045; 80048; 80053; 80306; 81003; 82962; 85025; 85610; 85730; 92507; 92523; 92526; 92610; 93005; 96360; 96361; 96372; 97162; 99285; G0378; J1650; J1815 ×2; J7030; J7040; Q9967

== ENCOUNTER → 2021-07-24 09:09 | Outpatient (BNVA) | payer BC, MEDICAID, SELFPAY | PROVIDERS: PCP Nurse Practitioner; Visit Provider Specialist | DX: I69.320 Aphasia following cerebral infarction (principal); I69.315 Cognitive social or emotional deficit following cerebral infarction; I69.390 Apraxia following cerebral infarction; I65.23 Occlusion and stenosis of bilateral carotid arteries; E11.9 Type 2 diabetes mellitus without complications; Z79.4 Long term (current) use of insulin; Z79.01 Long term (current) use of anticoagulants; Z87.891 Personal history of nicotine dependence | CPT/HCPCS: 99214; 99215 ==

== ENCOUNTER → 2021-07-27 08:47 | Outpatient (BNVA) | payer BC, MEDICAID, SELFPAY | PROVIDERS: PCP Nurse Practitioner; Visit Provider Thoracic Surgery (Cardiothoracic Vascular Surgery) | DX: Z09 Encounter for follow-up examination after completed treatment for conditions other than malignant neoplasm (principal); R47.01 Aphasia; I63.89 Other cerebral infarction; I10 Essential (primary) hypertension; Z87.891 Personal history of nicotine dependence | CPT/HCPCS: 99213 ==

== ENCOUNTER → 2021-08-07 10:48 | Outpatient (BNVA) | payer BC, MEDICAID, SELFPAY | PROVIDERS: PCP Nurse Practitioner; Visit Provider Internal Medicine Cardiovascular Disease | DX: I63.513 Cerebral infarction due to unspecified occlusion or stenosis of bilateral middle cerebral arteries (principal) | CPT/HCPCS: 93270 ==

== ENCOUNTER → 2021-08-21 10:54 | Outpatient (BNVA) | payer BC, MEDICAID, SELFPAY | PROVIDERS: PCP Nurse Practitioner; Visit Provider Internal Medicine Cardiovascular Disease | DX: R00.2 Palpitations (principal); I48.91 Unspecified atrial fibrillation; I10 Essential (primary) hypertension | CPT/HCPCS: 99214 ==

== ENCOUNTER 2021-08-22 16:31 | Emergency (ER) | payer BC, MEDICAID, SELFPAY ==
[2021-08-22 16:36] VITALS: BP 173/111; PULSE 105; O2SAT 98
--- NOTE | 2021-08-22 16:43 | W.ED.CHESTPA ---
Documented by User: John Barnard DO 08/23/21 06:26 HPI - Chest Pain General: Chief Complaint: Chest Pain Stated Complaint: CHEST PAIN RESOLVED Time Seen by Provider: 08/22/21 16:37 Source: patient Mode of arrival: EMS Limitations: no limitations History of Present Illness: 45-year-old male who is nonverbal secondary to a previous stroke. He has total aphasia he indicates yes and no by shaking his head or with hand signals. is at the bedside with him. He has a history of previous CVA and previous AK. Patient is denying any chest pain at this time although he does state he had some earlier. He denies shortness of breath or abdominal pain. Unable to get any significant history from him of any current symptoms. He does admit to having chest pain earlier while at rest. He denies any shortness of breath at this time either. MD complaint: chest pain Pertinent past history: coronary artery disease Onset (ago): minute(s) Timing of current episode: episodic Onset: during rest Pain location: left chest Pain radiation: none Severity: mild Relieving factors: nothing Exacerbating factors: nothing Associated symptoms: Reports dyspnea; Deny abdominal pain, diaphoresis, fever(s), leg edema, nausea, palpitations, sense of impending doom, syncope or vomiting Treatment prior to arrival: none Risk Factors: Coronary artery disease risk factors: diabetes and hypertension Review of Systems Const: Denies: fever(s) or diaphoresis Card: Reports: chest pain (Resolved); Denies: palpitations or syncope Resp: Reports: dyspnea GI: Denies: abdominal pain, nausea or vomiting : Denies: dysuria, urinary frequency or urinary urgency [facility] ED PFSH: Medical History Acute CVA (cerebrovascular accident) Diabetes mellitus, type II History of stroke with residual deficit (~2019) Treated at [facility] in [facility] per family, residual left sided weakness Hyperlipidemia Hypertension Nicotine dependence Obesity (BMI 30-39.9) Stroke-like symptoms Surgical History History of placement of ear tubes childhood Family History Mother Cancer colon cancer Other Diabetes Hyperlipidemia Hypertension Stroke Social History Smoking and tobacco status: former smoker Quit status (tobacco): has quit using tobacco Year quit tobacco: 06/17 Second hand smoke exposure: No Smoking risk assessment/counseling performed?: Yes Alcohol intake: never Desire information about alcohol rehabilitation?: No Counseling given: No Desire information about substance/drug rehabilitation?: No Counseling given: No Adopted: No Caregiver/support person: Yes Lives independently: No Household members: family and other Details: lives with sister and brother in law Housing: House Marital status: Legally Number of children: 2 service: No Current occupational status: unemployed Pets and animals: Yes Pets & animals: cat(s) History of recent travel: No Current gender identity: Male Physical Exam Const: COMMON NORMALS: no acute distress GENERAL APPEARANCE: cooperative and comfortable ORIENTATION/CONSCIOUSNESS: Yes awake HENMT: COMMON NORMALS: normocephalic, atraumatic and hearing grossly normal bilaterally HEAD & SCALP: normocephalic and atraumatic Neck/C-Spine: COMMON NORMALS: no JVD Resp: COMMON NORMALS: normal respiratory effort, No retractions, No use of accessory muscles and clear to auscultation bilaterally AUSCULTATION: clear to auscultation bilaterally Cardio: COMMON NORMALS: no JVD, regular rate, regular rhythm and No murmurs present (Cardio) RATE: regular rate RHYTHM: regular rhythm GI: COMMON NORMALS: Soft to palpation and No hepatosplenomegaly present AUSCULTATION: Yes normoactive bowel sounds PALPATION: Yes Soft to palpation, No Tenderness to palpation present (GI), No Guarding due to palpation present (GI) and Yes No hepatosplenomegaly present Extremity: COMMON NORMALS: normal to inspection, capillary refill normal, no clubbing, cyanosis or edema, no calf tenderness and no pedal edema Skin: COMMON NORMALS: no rashes or lesions noted GENERAL SKIN EXAM: no rashes or lesions noted Course Vital Signs: Vital signs: Vital Signs Pulse Rate 112 H 08/22/21 20:34 Respiratory Rate 17 08/22/21 19:00 Blood Pressure 136/93 08/22/21 20:34 Pulse Oximetry 94 08/22/21 20:34 MDM - Chest Pain Medical Decision Making Care signed out to Dr. Archuleta at change of shift. See final notes for diagnosis and disposition. Patient presents for chest pain is atypical in nature. Initial repeat troponins here are negative. He is stable for discharge is to follow-up with PCP and return if worsening. Medical Records I reviewed the patient's medical records. Lab Data I reviewed the patient's lab results. : 08/22/21 16:44 08/22/21 16:44 Radiology Impressions Chest X-Ray 08/22/21 17:16 IMPRESSION: Bibasilar atelectasis versus minimal infiltrate. Head CT 08/22/21 18:03 IMPRESSION: 1. Negative for intracranial hemorrhage or mass effect. 2. Right frontal lobe, left cerebellar and left peña radiata chronic infarcts. 3. Moderate diffuse white matter disease likely reflecting chronic microvascular ischemic changes. Laboratory Results WBC 8.1 10^3/uL (4.0-10.0) 08/22/21 16:44 RBC 5.13 10^6/uL (4.1-5.3) 08/22/21 16:44 Hgb 15.9 g/dL (11.7-16.6) 08/22/21 16:44 Hct 45.8 % (42.0-52.0) 08/22/21 16:44 MCV 89.3 fl (80-94) 08/22/21 16:44 MCH 31.0 pg (28.0-34.0) 08/22/21 16:44 MCHC 34.7 g/dL (30.0-36.0) 08/22/21 16:44 RDW 12.1 % (12.1-15.1) 08/22/21 16:44 Plt Count 308 10^3/cmm (130-400) 08/22/21 16:44 MPV 11.1 fL (7.4-10.4) H 08/22/21 16:44 Neut % (Auto) 64.7 % 08/22/21 16:44 Lymph % (Auto) 24.0 % 08/22/21 16:44 Greer % (Auto) 7.0 % 08/22/21 16:44 Eos % (Auto) 3.7 % 08/22/21 16:44 Baso % (Auto) 0.5 % 08/22/21 16:44 Neut # (Auto) 5.27 10^3/uL (1.8-7.7) 08/22/21 16:44 Lymph # (Auto) 2.0 10^3/uL (0.8-4.8) 08/22/21 16:44 Greer # (Auto) 0.6 10^3/uL (0.2-0.9) 08/22/21 16:44 Eos # (Auto) 0.3 10^3/uL (0.0-0.8) 08/22/21 16:44 Baso # (Auto) 0.0 10^3/uL (0.0-0.1) 08/22/21 16:44 Nucleated RBC % (auto) 0 % 08/22/21 16:44 Nucleated RBCs # 0.0 /100WBC 08/22/21 16:44 Sodium 139 mmol/L (136-145) 08/22/21 16:44 Potassium 3.4 mmol/L (3.5-5.1) L 08/22/21 16:44 Chloride 102 mmol/L (98-107) 08/22/21 16:44 Carbon Dioxide 23 mmol/L (22-29) 08/22/21 16:44 Anion Gap 17.4 (5-19) 08/22/21 16:44 BUN 9 mg/dL (6-20) 08/22/21 16:44 Creatinine 0.5 mg/dL (0.7-1.2) L 08/22/21 16:44 GFR Calculation 178.2 mL/min (90-130) H 08/22/21 16:44 Glucose 138 mg/dL (65-115) H 08/22/21 16:44 Calculated Osmolality 289 mOsm/kg (285-295) 08/22/21 16:44 Calcium 9.4 mg/dL (8.5-10.5) 08/22/21 16:44 Total Bilirubin 0.4 mg/dL (0.15-1.2) 08/22/21 16:44 AST 14 U/L (0-40) 08/22/21 16:44 ALT 13 U/L (0-41) 08/22/21 16:44 Alkaline Phosphatase 83 IU/L (40-130) 08/22/21 16:44 Troponin T Baseline 15 ng/L (0-15) 08/22/21 16:44 Troponin T 120 Minute 15.78 ng/L (0-15) H 08/22/21 19:33 Delta Troponin T 0.78 ABS# (0-10) 08/22/21 19:33 Total Protein 6.8 g/dL (6.6-8.7) 08/22/21 16:44 Albumin 4.4 g/dL (3.5-5.2) 08/22/21 16:44 Globulin 2.4 g/dL (1.3-4.6) 08/22/21 16:44 Discharge Plan Discharge Patient Disposition: Home Clinical Impression: Chest pain Condition: Stable Prescriptions: No Action Lantus Solostar U-100 Insulin 100 unit/mL (3 mL) insulin pen 50 unit SUBCUT DAILY Qty: 15 0RF amlodipine 10 mg tablet 10 mg PO DAILY Qty: 30 3RF (DME) OneTouch Ultra Test Strip See Rx Instructions .Route Qty: 100 5RF Rx Instructions: check 3 times day (DME) pen needle, diabetic 33 gauge x 5/32 needle See Rx Instructions .ROUTE .MEDSUPPLY Qty: 100 5RF Rx Instructions: 4 times day (DME) Hospital bed See Rx Instructions .Route .MEDSUPPLY Qty: 1 0RF Rx Instructions: As directed (DME) wheel chair See Rx Instructions .Route .MEDSUPPLY Qty: 1 0RF Rx Instructions: As directed lisinopril [Prinivil] 20 mg tablet 20 mg PO BID Qty: 60 3RF metformin 500 mg tablet 500 mg PO BID Qty: 60 3RF Trulicity 0.75 mg/0.5 mL pen injector 0.75 mg SUBCUT .weekly Qty: 2 0RF clopidogrel 75 mg tablet 75 mg PO DAILY Qty: 30 11RF aspirin 81 mg tablet,delayed release (DR/EC) 81 mg PO DAILY Qty: 30 10RF (DME) glucometer kit See Rx Instructions .Route .MEDSUPPLY Qty: 1 0RF Rx Instructions: Glucometer testing kit Check blood sugars 3 times daily, before meals Lancets #100 Strips #100 Discharge Orders: Discharge ED (Routine); Ordered 08/22/21 Ordered By: Lars Archuleta Referrals: Mehdi Burks, TRANSITION PROGRAM MANAGER-C [Primary Care Provider] - 1-3 days Discharge Diet: Advance as tolerated Discharge Activity: Resume usual activity Patient Instructions: Chest Pain (ED) Coding Level of Care Code ED Methods Specialist Engineer for Chg Fwd Documented by User: Lars Archuleta MD 08/22/21 20:05 HPI - Chest Pain General: Chief Complaint: Chest Pain Stated Complaint: CHEST PAIN RESOLVED Time Seen by Provider: 08/22/21 16:37 History of Present Illness: . PFSH ED PFSH: Medical History Acute CVA (cerebrovascular accident) Diabetes mellitus, type II History of stroke with residual deficit (~2018) Treated at [facility] in [facility] per family, residual left sided weakness Hyperlipidemia Hypertension Nicotine dependence Obesity (BMI 30-39.9) Stroke-like symptoms Surgical History History of placement of ear tubes childhood Family History Mother Cancer colon cancer Other Diabetes Hyperlipidemia Hypertension Stroke Social History Smoking and tobacco status: former smoker Quit status (tobacco): has quit using tobacco Year quit tobacco: 06/17 Second hand smoke exposure: No Smoking risk assessment/counseling performed?: Yes Alcohol intake: never Desire information about alcohol rehabilitation?: No Counseling given: No Desire information about substance/drug rehabilitation?: No Counseling given: No Adopted: No Caregiver/support person: Yes Lives independently: No Household members: family and other Details: lives with sister and brother in law Housing: House Marital status: Legally Number of children: 2 service: No Current occupational status: unemployed Pets and animals: Yes Pets & animals: cat(s) History of recent travel: No Current gender identity: Male Course Vital Signs: Vital signs: Vital Signs Pulse Rate 112 H 08/22/21 20:34 Respiratory Rate 17 08/22/21 19:00 Blood Pressure 136/93 08/22/21 20:34 Pulse Oximetry 94 08/22/21 20:34 MDM - Chest Pain Medical Decision Making Patient presents for chest pain is atypical in nature. Initial repeat troponins here are negative. He is stable for discharge is to follow-up with PCP and return if worsening. Lab Data : 08/22/21 16:44 08/22/21 16:44 Radiology Impressions Chest X-Ray 08/22/21 17:16 IMPRESSION: Bibasilar atelectasis versus minimal infiltrate. Head CT 08/22/21 18:03 IMPRESSION: 1. Negative for intracranial hemorrhage or mass effect. 2. Right frontal lobe, left cerebellar and left peña radiata chronic infarcts. 3. Moderate diffuse white matter disease likely reflecting chronic microvascular ischemic changes. Laboratory Results WBC 8.1 10^3/uL (4.0-10.0) 08/22/21 16:44 RBC 5.13 10^6/uL (4.1-5.3) 08/22/21 16:44 Hgb 15.9 g/dL (11.7-16.6) 08/22/21 16:44 Hct 45.8 % (42.0-52.0) 08/22/21 16:44 MCV 89.3 fl (80-94) 08/22/21 16:44 MCH 31.0 pg (28.0-34.0) 08/22/21 16:44 MCHC 34.7 g/dL (30.0-36.0) 08/22/21 16:44 RDW 12.1 % (12.1-15.1) 08/22/21 16:44 Plt Count 308 10^3/cmm (130-400) 08/22/21 16:44 MPV 11.1 fL (7.4-10.4) H 08/22/21 16:44 Neut % (Auto) 64.7 % 08/22/21 16:44 Lymph % (Auto) 24.0 % 08/22/21 16:44 Greer % (Auto) 7.0 % 08/22/21 16:44 Eos % (Auto) 3.7 % 08/22/21 16:44 Baso % (Auto) 0.5 % 08/22/21 16:44 Neut # (Auto) 5.27 10^3/uL (1.8-7.7) 08/22/21 16:44 Lymph # (Auto) 2.0 10^3/uL (0.8-4.8) 08/22/21 16:44 Greer # (Auto) 0.6 10^3/uL (0.2-0.9) 08/22/21 16:44 Eos # (Auto) 0.3 10^3/uL (0.0-0.8) 08/22/21 16:44 Baso # (Auto) 0.0 10^3/uL (0.0-0.1) 08/22/21 16:44 Nucleated RBC % (auto) 0 % 08/22/21 16:44 Nucleated RBCs # 0.0 /100WBC 08/22/21 16:44 Sodium 139 mmol/L (136-145) 08/22/21 16:44 Potassium 3.4 mmol/L (3.5-5.1) L 08/22/21 16:44 Chloride 102 mmol/L (98-107) 08/22/21 16:44 Carbon Dioxide 23 mmol/L (22-29) 08/22/21 16:44 Anion Gap 17.4 (5-19) 08/22/21 16:44 BUN 9 mg/dL (6-20) 08/22/21 16:44 Creatinine 0.5 mg/dL (0.7-1.2) L 08/22/21 16:44 GFR Calculation 178.2 mL/min (90-130) H 08/22/21 16:44 Glucose 138 mg/dL (65-115) H 08/22/21 16:44 Calculated Osmolality 289 mOsm/kg (285-295) 08/22/21 16:44 Calcium 9.4 mg/dL (8.5-10.5) 08/22/21 16:44 Total Bilirubin 0.4 mg/dL (0.15-1.2) 08/22/21 16:44 AST 14 U/L (0-40) 08/22/21 16:44 ALT 13 U/L (0-41) 08/22/21 16:44 Alkaline Phosphatase 83 IU/L (40-130) 08/22/21 16:44 Troponin T Baseline 15 ng/L (0-15) 08/22/21 16:44 Troponin T 120 Minute 15.78 ng/L (0-15) H 08/22/21 19:33 Delta Troponin T 0.78 ABS# (0-10) 08/22/21 19:33 Total Protein 6.8 g/dL (6.6-8.7) 08/22/21 16:44 Albumin 4.4 g/dL (3.5-5.2) 08/22/21 16:44 Globulin 2.4 g/dL (1.3-4.6) 08/22/21 16:44 EKG Data EKG 1: I personally reviewed and interpreted this EKG as follows: EKG interpretation date: 08/22/21 EKG interpretation time: 16:52 Interpretation: Normal sinus rhythm heart rate [address] or T wave abnormalities QRS 116 QTC 413 Discharge Plan Discharge Patient Disposition: Home Clinical Impression: Chest pain Condition: Stable Prescriptions: No Action Lantus Solostar U-100 Insulin 100 unit/mL (3 mL) insulin pen 50 unit SUBCUT DAILY Qty: 15 0RF amlodipine 10 mg tablet 10 mg PO DAILY Qty: 30 3RF (DME) OneTouch Ultra Test Strip See Rx Instructions .Route Qty: 100 5RF Rx Instructions: check 3 times day (DME) pen needle, diabetic 33 gauge x 5/32 needle See Rx Instructions .ROUTE .MEDSUPPLY Qty: 100 5RF Rx Instructions: 4 times day (DME) Hospital bed See Rx Instructions .Route .MEDSUPPLY Qty: 1 0RF Rx Instructions: As directed (DME) wheel chair See Rx Instructions .Route .MEDSUPPLY Qty: 1 0RF Rx Instructions: As directed lisinopril [Prinivil] 20 mg tablet 20 mg PO BID Qty: 60 3RF metformin 500 mg tablet 500 mg PO BID Qty: 60 3RF Trulicity 0.75 mg/0.5 mL pen injector 0.75 mg SUBCUT .weekly Qty: 2 0RF clopidogrel 75 mg tablet 75 mg PO DAILY Qty: 30 11RF aspirin 81 mg tablet,delayed release (DR/EC) 81 mg PO DAILY Qty: 30 10RF (DME) glucometer kit See Rx Instructions .Route .MEDSUPPLY Qty: 1 0RF Rx Instructions: Glucometer testing kit Check blood sugars 3 times daily, before meals Lancets #100 Strips #100 Discharge Orders: Discharge ED (Routine); Ordered 08/22/21 Ordered By: Lars Archuleta Referrals: Mehdi Burks, TRANSITION PROGRAM MANAGER-C [Primary Care Provider] - 1-3 days Discharge Diet: Advance as tolerated Discharge Activity: Resume usual activity Patient Instructions: Chest Pain (ED) Coding Level of Care Code ED Methods Specialist Engineer for Olga Stewart
--- NOTE | 2021-08-22 16:54 | ECG_ITS ---
[facility] Test Date: 2021-08-22 Pat Name: Dimitrios Guerrero Department: Room: Gender: Male Visitor Services Technician: : 1975 Requested By: John Camacho Order Number: [id number] Jia MD: Julio Cesar Dominguez M.D. Measurements Intervals [place] Rate: 99 P: 35 AR: 186 QRS: -15 QRSD: 116 T: 32 QT: 357 QTc: 458 Interpretive Statements SINUS RHYTHM POSSIBLE INFERIOR MYOCARDIAL INFARCTION , PROBABLY OLD [40+ ms Q WAVE AND/OR ST/T ABNORMALITY IN II/aVF] Compared to ECG 06/25/2021 10:27:29 Myocardial infarct finding now present Intraventricular conduction delay no longer present Electronically Signed On 08-23-2021 17:04:11 CDT by Julio Cesar Dominguez M.D. [email or web address] Profissionallawrence county hospitalDueDileast [facility].[employer]/store/Om/[id number]
--- NOTE | 2021-08-22 17:16 | XRR_ITS ---
PROCEDURE INFORMATION: Exam: XR Chest Exam date and time: 08/22/2021 5:23 PM Age: 45 years old Clinical indication: Chest wall pain; Additional info: Chest pain TECHNIQUE: Imaging protocol: XR of the chest. Views: 1 view. COMPARISON: CR XR chest 1V portable [id number] 06/25/2021 10:15 AM FINDINGS: Lungs: Bibasilar atelectasis versus minimal infiltrate. Pleural spaces: Unremarkable. No pleural effusion. No pneumothorax. Heart/Mediastinum: Unremarkable. No cardiomegaly. Bones/joints: Unremarkable. XR/XR chest 1V portable [id number] IMPRESSION: Bibasilar atelectasis versus minimal infiltrate.
[2021-08-22 17:26] VITALS: BP 175/113; PULSE 109; RESP 18; O2SAT 97
[2021-08-22 17:30] LABS: Basophils % 0.5 %; Eosinophils # 0.3 10^3/uL (0.0-0.8); Eosinophils % 3.7 %; Hematocrit 45.8 % (42.0-52.0); Hemoglobin 15.9 g/dL (11.7-16.6); Mean Corpuscular HGB Conc 34.7 g/dL (30.0-36.0); Mean Corpuscular Volume 89.3 fl (80-94); Mean Platelet Volume 11.1 fL (7.4-10.4); Monocytes # 0.6 10^3/uL (0.2-0.9); Neutrophils # 5.27 10^3/uL (1.8-7.7); Neutrophils % 64.7 %; Nucleated Red Blood Cells % 0 %; Platelet Count 308 10^3/cmm (130-400); Red Blood Count 5.13 10^6/uL (4.1-5.3); Red Cell Distribution Width 12.1 % (12.1-15.1); White Blood Count 8.1 10^3/uL (4.0-10.0)
[2021-08-22 17:42] VITALS: BP 158/98; PULSE 104; RESP 19; O2SAT 97
--- NOTE | 2021-08-22 18:03 | CTR_ITS ---
PROCEDURE INFORMATION: Exam: CT Head Without Contrast Exam date and time: 08/22/2021 6:45 PM Age: 45 years old Clinical indication: Pain; Headache; Additional info: AMS TECHNIQUE: Imaging protocol: Computed tomography of the head without contrast. Radiation optimization: All CT scans at this facility use at least one of these dose optimization techniques: automated exposure control; mA and/or kV adjustment per patient size (includes targeted exams where dose is matched to clinical indication); or iterative reconstruction. COMPARISON: MR head wo con* [id number] 06/26/2021 3:46 PM RADIATION DOSE METRICS: Total DLP (mGy-cm): 827.9 FINDINGS: Brain: Right frontal lobe, left cerebellar and left peña radiata chronic infarcts. Moderate diffuse white matter disease likely reflecting chronic microvascular ischemic changes. Cerebral ventricles: No ventriculomegaly. Paranasal sinuses: Visualized sinuses are unremarkable. No fluid levels. Mastoid air cells: Visualized mastoid air cells are well aerated. Bones/joints: Unremarkable. No acute fracture. Soft tissues: Unremarkable. CT/CT head wo con* [id number] IMPRESSION: 1. Negative for intracranial hemorrhage or mass effect. 2. Right frontal lobe, left cerebellar and left peña radiata chronic infarcts. 3. Moderate diffuse white matter disease likely reflecting chronic microvascular ischemic changes.
[2021-08-22 18:09] LABS: Troponin(5th) Baseline 15 ng/L (0-15)
[2021-08-22 18:10] LABS: Alanine Aminotransferase 13 U/L (0-41); Albumin Level 4.4 g/dL (3.5-5.2); Alkaline Phosphatase 83 IU/L (40-130); Anion Gap 17.4 (5-19); Aspartate Amino Transferase 14 U/L (0-40); Blood Urea Nitrogen 9 mg/dL (6-20); Calcium 9.4 mg/dL (8.5-10.5); Carbon Dioxide 23 mmol/L (22-29); Chloride 102 mmol/L (98-107); Globulin 2.4 g/dL (1.3-4.6); Glomerular Filtration Rate 178.2 mL/min (90-130); Glucose 138 mg/dL (65-115); Osmolality Calculated 289 mOsm/kg (285-295); Potassium 3.4 mmol/L (3.5-5.1); Sodium 139 mmol/L (136-145); Total Bilirubin 0.4 mg/dL (0.15-1.2); Total Protein 6.8 g/dL (6.6-8.7)
[2021-08-22 19:00] VITALS: BP 158/104; PULSE 108; RESP 17; O2SAT 95
--- NOTE | 2021-08-22 19:16 | ECG_ITS ---
[facility] Test Date: 2021-08-22 Pat Name: Dimitrios Guerrero Department: Room: Gender: Male Anesthesiology Medical Doctor: : 1975 Requested By: John Camacho Order Number: [id number] Jia MD: Julio Cesar Dominguez M.D. Measurements Intervals [place] Rate: 107 P: 21 WV: 175 QRS: -21 QRSD: 114 T: 30 QT: 351 QTc: 469 Interpretive Statements SINUS TACHYCARDIA POSSIBLE SEPTAL MYOCARDIAL INFARCTION , PROBABLY OLD [30 ms Q WAVE IN V1/V2] ABNORMAL RHYTHM ECG Compared to ECG 08/22/2021 16:52:41 Sinus rhythm no longer present Myocardial infarct finding still present Electronically Signed On 08-23-2021 17:15:43 CDT by Julio Cesar Dominguez M.D. [id number]
[2021-08-22 19:55] LABS: Troponin 5 2HR 15.78 ng/L (0-15)
[2021-08-22 19:56] LABS: Troponin 5 2HR Delta 0.78 ABS# (0-10)
[2021-08-22 20:34] VITALS: BP 136/93; PULSE 112; O2SAT 94
== END 2021-08-22 20:37 | disposition home or self-care (01) ==
PROVIDERS: Family Medicine; Emergency Provider Emergency Medicine; PCP Nurse Practitioner
DX: R07.89 Other chest pain (principal); I69.320 Aphasia following cerebral infarction; I10 Essential (primary) hypertension; I25.2 Old myocardial infarction; E11.9 Type 2 diabetes mellitus without complications; Z87.891 Personal history of nicotine dependence
CPT/HCPCS: 36415; 70450; 71045; 80053; 84484; 85025; 93005; 99284

== ENCOUNTER → 2021-09-18 09:30 | Outpatient (BNVA) | payer BC, MEDICAID, SELFPAY | PROVIDERS: PCP Nurse Practitioner; Visit Provider Nurse Practitioner | DX: I10 Essential (primary) hypertension (principal); F43.21 Adjustment disorder with depressed mood; E11.69 Type 2 diabetes mellitus with other specified complication; Z79.4 Long term (current) use of insulin; E11.9 Type 2 diabetes mellitus without complications; E55.9 Vitamin D deficiency, unspecified | CPT/HCPCS: 80053; 82306; 82607; 83036 ==

== ENCOUNTER → 2021-12-06 09:35 | Outpatient (BNVA) | payer BC, MEDICAID, SELFPAY | PROVIDERS: PCP Nurse Practitioner; Visit Provider Nurse Practitioner | DX: I10 Essential (primary) hypertension (principal); F43.21 Adjustment disorder with depressed mood; E11.69 Type 2 diabetes mellitus with other specified complication; Z79.4 Long term (current) use of insulin; E11.9 Type 2 diabetes mellitus without complications; E55.9 Vitamin D deficiency, unspecified; E11.65 Type 2 diabetes mellitus with hyperglycemia | CPT/HCPCS: 80053; 80061; 82306; 83036 ==

== ENCOUNTER → 2022-01-01 15:05 | Outpatient (BNVA) | payer BC, MEDICAID, SELFPAY | PROVIDERS: PCP Nurse Practitioner; Visit Provider Internal Medicine Cardiovascular Disease | DX: R06.02 Shortness of breath (principal); Z86.73 Personal history of transient ischemic attack (TIA), and cerebral infarction without residual deficits; I10 Essential (primary) hypertension; Z79.01 Long term (current) use of anticoagulants; Z87.891 Personal history of nicotine dependence | CPT/HCPCS: 99214 ==

== ENCOUNTER → 2022-03-02 08:34 | Outpatient (BNVA) | payer BC, MEDICAID, SELFPAY | PROVIDERS: PCP Nurse Practitioner; Visit Provider Nurse Practitioner | DX: I10 Essential (primary) hypertension (principal); F43.21 Adjustment disorder with depressed mood; E11.69 Type 2 diabetes mellitus with other specified complication; Z79.4 Long term (current) use of insulin; E11.9 Type 2 diabetes mellitus without complications; E55.9 Vitamin D deficiency, unspecified; E11.65 Type 2 diabetes mellitus with hyperglycemia | CPT/HCPCS: 80053; 83036 ==

== ENCOUNTER → 2022-05-04 08:15 | Outpatient (BNVA) | payer BC, MEDICAID, SELFPAY | PROVIDERS: PCP Nurse Practitioner; Visit Provider Nurse Practitioner | DX: I10 Essential (primary) hypertension (principal); F43.21 Adjustment disorder with depressed mood; E11.69 Type 2 diabetes mellitus with other specified complication; Z79.4 Long term (current) use of insulin; E11.9 Type 2 diabetes mellitus without complications; E11.65 Type 2 diabetes mellitus with hyperglycemia | CPT/HCPCS: 80053; 80061; 83036; 85025; 87486; 87581; 87633 ==

== ENCOUNTER → 2022-07-25 13:35 | Outpatient (BNVA) | payer BC, MEDICAID, SELFPAY | PROVIDERS: PCP Nurse Practitioner; Visit Provider Nurse Practitioner Family | DX: R06.09 Other forms of dyspnea (principal); I63.9 Cerebral infarction, unspecified; I10 Essential (primary) hypertension | CPT/HCPCS: 85378 ==

== ENCOUNTER 2022-08-16 10:27 | Outpatient (CLI) | payer BC, MEDICAID, SELFPAY ==
--- NOTE | 2022-08-16 10:30 | CT_ITS ---
WS: [id number] CT HEAD TECHNIQUE: Noncontrast CT of the head obtained from the skullbase to the vertex. CLINICAL INFORMATION: I63.9 - Cerebral infarction, unspecified COMPARISON: CT August 22, 2021 DLP: 1924.[address] scans at [facility] use at least one of these dose optimization techniques: automated e xposure control; mA and/or kV adjustment per patient size (includes targeted exams where dose is matc hed to clinical indication); or iterative reconstruction. FINDINGS: No evidence of intracranial hemorrhage or mass effect. Ventricular system and basal cisterns are duenas nt. Moderate to advanced small vessel changes with moderate parenchymal volume loss. Chronic infarcts in the LEFT centrum semiovale unchanged. Chronic infarct in the RIGHT frontal lobe laterally with en cephalomalacia. Dense intracranial vascular calcification. Multiple chronic infarcts in the LEFT cere bellum midbrain and brenna. Chronic infarcts are similar to previous. Progressed chronic ischemia along the genu of the LEFT internal capsule. No extra-axial fluid collections. Mastoid air cells and paranasal sinuses are well aerated. Normal po sterior nasopharynx. CT/CT head wo con* [id number] IMPRESSION: 1. No evidence of intracranial hemorrhage or mass effect. 2. Moderate to advanced small vessel changes with moderate parenchymal volume loss similar to previous. 3. Numerous chronic infarcts are similar in appearance. 4. Slightly progressed ischemia along the genu of the LEFT internal capsule w ith encephalomalacia. 5. Chronic infarcts involving the RIGHT frontal lobe laterally with encephalom alacia unchanged. Stable chronic infarcts LEFT centrum semiovale, and LEFT cere bellum. 6. Stable chronic lacunar infarcts in the midbrain and brenna. 7. Dense vascular calcification.
== END 2022-08-16 10:28 | disposition home or self-care (01) ==
PROVIDERS: PCP Nurse Practitioner; Visit Provider Specialist
DX: I63.9 Cerebral infarction, unspecified (principal)
CPT/HCPCS: 70450

== ENCOUNTER → 2022-09-04 09:57 | Outpatient (BNVA) | payer BC, MEDICAID, SELFPAY | PROVIDERS: PCP Nurse Practitioner; Visit Provider Nurse Practitioner | DX: E11.65 Type 2 diabetes mellitus with hyperglycemia (principal); Z79.4 Long term (current) use of insulin | CPT/HCPCS: 80053; 80061; 83036 ==

== ENCOUNTER → 2022-11-23 09:09 | Outpatient (BNVA) | payer BC, MEDICAID, SELFPAY | PROVIDERS: PCP Nurse Practitioner; Visit Provider Nurse Practitioner | DX: I10 Essential (primary) hypertension (principal); F43.21 Adjustment disorder with depressed mood; E11.9 Type 2 diabetes mellitus without complications; E11.65 Type 2 diabetes mellitus with hyperglycemia; Z79.4 Long term (current) use of insulin | CPT/HCPCS: 80053; 83036 ==

== ENCOUNTER → 2023-02-15 10:31 | Outpatient (BNVA) | payer BC, MEDICAID, SELFPAY | PROVIDERS: PCP Nurse Practitioner; Visit Provider Nurse Practitioner | DX: I10 Essential (primary) hypertension (principal); F43.21 Adjustment disorder with depressed mood; E11.65 Type 2 diabetes mellitus with hyperglycemia; Z79.4 Long term (current) use of insulin; E11.9 Type 2 diabetes mellitus without complications | CPT/HCPCS: 80053; 83036 ==

== ENCOUNTER → 2023-06-06 09:52 | Outpatient (BNVA) | payer BC, MEDICAID, SELFPAY | PROVIDERS: PCP Nurse Practitioner; Visit Provider Nurse Practitioner | DX: I10 Essential (primary) hypertension (principal); E11.65 Type 2 diabetes mellitus with hyperglycemia; Z79.4 Long term (current) use of insulin; F43.21 Adjustment disorder with depressed mood; E55.9 Vitamin D deficiency, unspecified | CPT/HCPCS: 80053; 80061; 82306; 82607; 83036; 85025 ==

== ENCOUNTER → 2024-01-30 12:01 | Outpatient (BNVA) | payer BC, MEDICAID, SELFPAY | PROVIDERS: PCP Nurse Practitioner; Visit Provider Nurse Practitioner | DX: E11.9 Type 2 diabetes mellitus without complications (principal) | CPT/HCPCS: 80053; 80061; 82607; 83036 ==

== ENCOUNTER → 2024-07-06 13:45 | Outpatient (BNVA) | payer MEDICARE, BC, MEDICAID, SELFPAY | PROVIDERS: PCP Nurse Practitioner; Visit Provider Nurse Practitioner | DX: I10 Essential (primary) hypertension (principal); E11.9 Type 2 diabetes mellitus without complications; F43.21 Adjustment disorder with depressed mood; Z12.5 Encounter for screening for malignant neoplasm of prostate; E11.65 Type 2 diabetes mellitus with hyperglycemia; R26.89 Other abnormalities of gait and mobility; I63.9 Cerebral infarction, unspecified | CPT/HCPCS: 80053; 80061; 83036; G0103 ==

== ENCOUNTER → 2025-04-29 15:50 | Outpatient (BNVA) | payer MEDICARE, MEDICAID, SELFPAY | PROVIDERS: PCP Nurse Practitioner; Visit Provider Nurse Practitioner | DX: E11.65 Type 2 diabetes mellitus with hyperglycemia (principal); E55.9 Vitamin D deficiency, unspecified | CPT/HCPCS: 80053; 80061; 82306; 83036; 85025 ==